=== PATIENT | female | born 1935 | race Caucasian/White ===

== ENCOUNTER → 2023-11-19 10:58 | Outpatient (REF) | payer OTHER, MEDICARE, SELFPAY ==
[2023-11-19 12:24] LABS: % Basophils 0.9 % (0-2); % Eosinophils 5.9 % (0-6); % Immature Granulocytes 2.7 % (0-0.5); % Lymphocytes 15.1 % (20.5-51.1); % Monocytes 7.4 % (1.7-9.3); Absolute Basophils 0.1 10^3/uL (0-0.2); Absolute Eosinophils 0.6 10^3/uL (0-0.7); Absolute Immature Granulocytes 0.3 10^3/uL (0-0.05); Absolute Lymphocytes 1.5 10^3/uL (1.2-3.4); Absolute Monocytes 0.8 10^3/uL (0.1-0.6); Absolute Neutrophils 6.9 10^3/uL (1.4-6.5); Hematocrit 30.4 % (37.0-47.0); Hemoglobin 9.9 g/dL (12.0-16.0); Mean Corp Hgb Conc. 32.6 g/dL (33.0-37.0); Mean Corpuscular Hgb 30.7 pg (27.0-31.0); Mean Corpuscular Volume 94.1 fL (81.0-99.0); Mean Platelet Volume 10.8 fL (7.4-10.4); Nucleated Red Blood Cells % 0 %; Platelet Count 257 10^3/uL (130-400); Red Blood Cell Count 3.23 10^6/uL (4.20-5.40); White Blood Cell Count 10.1 10^3/uL (4.8-10.8)
[2023-11-19 13:02] LABS: ALT (SGPT) 39 U/L (0-35); AST (SGOT) 32 U/L (14-36); Albumin 3.2 g/dl (3.5-5.0); Alkaline Phosphatase 69 U/L (38-126); Blood Urea Nitrogen 13 mg/dl (7-17); Calcium 8.5 mg/dl (8.4-10.2); Carbon Dioxide 23 mmol/L (22-30); Chloride 105 mmol/L (98-107); Glucose 110 mg/dl (70-99); Potassium 3.6 mmol/L (3.5-5.1); Sodium 133 mmol/L (135-145); Total Bilirubin 0.4 mg/dl (0.2-1.3); eGFR > 60.00
[2023-11-19 13:12] LABS: NT-proBNP 4690 pg/ml
== END ==
LOC: OLABN 10:58
PROVIDERS: ATTENDING PHYSICIAN Student in an Organized Health Care Education/Training Program
DX: R06.2 Wheezing (principal)
CPT/HCPCS: 36415; 80053; 83880; 85025

== ENCOUNTER 2023-11-21 20:25 | Inpatient (IN) | payer MEDICARE, SELFPAY ==
[2023-11-21] VITALS (16 sets, daily range): BP systolic 98–162; BP diastolic 50–111; BMI 27.6
[2023-11-21 18:15] LABS: % Eosinophils 4.1 % (0-6); % Immature Granulocytes 2.7 % (0-0.5); % Monocytes 7.6 % (1.7-9.3); % Neutrophils 52.6 % (42.2-75.2); Absolute Basophils 0.2 10^3/uL (0-0.2); Absolute Eosinophils 0.8 10^3/uL (0-0.7); Absolute Immature Granulocytes 0.5 10^3/uL (0-0.05); Absolute Lymphocytes 6.4 10^3/uL (1.2-3.4); Absolute Monocytes 1.5 10^3/uL (0.1-0.6); Absolute Neutrophils 10.4 10^3/uL (1.4-6.5); Hematocrit 38.4 % (37.0-47.0); Hemoglobin 12.5 g/dL (12.0-16.0); Mean Corp Hgb Conc. 32.6 g/dL (33.0-37.0); Mean Corpuscular Hgb 31.3 pg (27.0-31.0); Mean Corpuscular Volume 96.2 fL (81.0-99.0); Mean Platelet Volume 10.2 fL (7.4-10.4); Nucleated Red Blood Cells % 0 %; Platelet Count 355 10^3/uL (130-400); Red Blood Cell Count 3.99 10^6/uL (4.20-5.40); Red Cell Dist. Width 14.3 % (11.5-14.5); White Blood Cell Count 19.8 10^3/uL (4.8-10.8)
[2023-11-21 18:18] LABS: B.E. -4.7 mmol/L; O2 Saturation % 90.9 % (94-98); PCO2 60 mmHg (32-35); PO2 66 mmHg (83-108); pH 7.21 (7.35-7.45)
[2023-11-21] MEDS: LASIX 40 MG IV (18:21)
[2023-11-21 18:28] LABS: ALT (SGPT) < 10 U/L (0-35); AST (SGOT) 31 U/L (14-36); Albumin 3.7 g/dl (3.5-5.0); Alkaline Phosphatase 77 U/L (38-126); Blood Urea Nitrogen 17 mg/dl (7-17); Calcium 8.9 mg/dl (8.4-10.2); Carbon Dioxide 24 mmol/L (22-30); Chloride 99 mmol/L (98-107); Glucose 261 mg/dl (70-99); Potassium 5.2 mmol/L (3.5-5.1); Sodium 133 mmol/L (135-145); Total Bilirubin 0.6 mg/dl (0.2-1.3); eGFR > 60.00
[2023-11-21 18:40] LABS: NT-proBNP 4840 pg/ml; Troponin I 0.013 ng/ml
[2023-11-21] MEDS: MAXIPIME 1000 MG IV (19:04)
[2023-11-21] MEDS: VANCOCIN 200 IV (19:19)
--- NOTE | 2023-11-21 19:32 | HPS.HSE ---
Addendum entered and electronically signed by Walter Kim MD 11/21/23 20:47:
NEG Covid Ag
ICU and CBC card consulted
Communicated via TT with ICU AP
Addendum entered and electronically signed by Walter Kim MD 11/21/23 20:23:
Bronchospastic with biphasic wheeze on exam DDX: Acute asthmatic bronchitis vs acute Pul edema
No prior HX COPD, Non smoker
- Nebs qid and PRN
- PO Prednisone - short course nad rapid taper as tolerates
Original Note:
Family Physician
-
Family Physician:
Chief Complaint
-
acute Resp distress
History of Present Illness
HPI
88F Res pf [facility] HX COPD, HTN, HLD, Hypothyroid, on DAPL pw severe RESP distress.
Currently ongoing Rx for endocarditis on IV Cefazolin:
Per ER staff due too patient is very lethargic but fiorella wakefull when I see her
she was foundhypoxic and decresed mentation
Sent to ER via EMS
@ ER
In acute Resp distress
POx as low as 79%
Tachypneic
ABG c/w Primary acute resp acidosis with Secondary metabolic acidosis and NG MA.
BiPAP
Per Family
HX chr gait dysfunction, intact normal cognitive function
Weak and Fell during PT at NH and [facility]
Denied CP
Medical History
Past Medical History
Past Medical History: Reports Other
Additional Past Medical History:
COPD, HTN, HLD, Hypothyroid, on DAPL
Past Surgical History: Reports Other
Social History
Tobacco: Non-smoker
Alcohol: None
Drug: None
Living: Half-Way
Family History
Family History: Not pertinent
Allergies / Home Medications
Allergies reflects when Allergies were last updated in [facility].
Home Medications with original date entered in [facility]
Allergy/Medication List:
Allergies
Allergy/AdvReac Type Severity Reaction Status Date / Time
sulfamethoxazole Allergy Unknown Verified 11/21/23 19:09
trimethoprim Allergy Unknown Verified 11/21/23 19:09
Home Medications
acetaminophen 325 mg tablet 650 mg PO Q4H PRN mild pain/fever>100.4 11/21/23
amiodarone 200 mg tablet 200 mg PO DAILY 11/21/23
aspirin 81 mg tablet,delayed release 81 mg PO DAILY 11/21/23
atorvastatin 40 mg tablet 40 mg PO QPM 11/21/23
bisacodyl 10 mg rectal suppository (Dulcolax (bisacodyl)) 10 mg AR DAILYPRN PRN if lactulose is ineffective 11/21/23
cefazolin 2 gram solution for injection 2 g IV TID 11/21/23
clopidogrel 75 mg tablet 75 mg PO DAILY 11/21/23
dapagliflozin propanediol 10 mg tablet 10 mg PO DAILY 11/21/23
ipratropium 0.5 mg-albuterol 3 mg (2.5 mg base)/3 mL nebulization soln 3 ml inhalation R Q6 11/21/23
labetalol 100 mg tablet 100 mg PO BID 11/21/23
lactulose 10 gram/15 mL oral solution 20 ml PO HSPRN PRN constipation 11/21/23
levothyroxine 88 mcg tablet 88 mcg PO DAILY 11/21/23
melatonin 3 mg tablet 3 mg PO QPM 11/21/23
polyethylene glycol 3350 17 gram oral powder packet (Miralax) 17 g PO DAILY 11/21/23
sodium phosphates 19 gram-7 gram/118 mL enema (Fleet Enema) 118 ml AR DAILY PRN if dulcolax ineffective 11/21/23
spironolactone 25 mg tablet 25 mg PO DAILY 11/21/23
Review of Systems
-
Constitutional: Reports No Symptoms
EENT: Reports No Symptoms
Respiratory: Reports See HPI and Trouble Breathing
Cardiac: Reports No Symptoms
Abdomen/GI: Reports No Symptoms
: Reports No Symptoms
Musculoskeletal: Reports No Symptoms
Skin: Reports No Symptoms
Neurological: Reports No Symptoms
Endocrine: Reports No Symptoms
Hematologic/Lymphatic: Reports No Symptoms
Psych: Reports No Symptoms
Physical Exam
Vital Signs
Vital Signs
Pulse Resp BP Pulse Ox
84 28 115/76 96
11/21/23 19:15 11/21/23 19:15 11/21/23 19:15 11/21/23 19:15
Physical Exam
General: Other (awake and follow comands )
HEENT: Anicteric and Moist mucous membranes
Respiratory: Wheezes (bilaterally )
Cardiac: S1/S2 and Regular Rhythm
Breast: Deferred by me
GI: Soft, Non Tender and Non Distended
Rectal: Deferred by Provider
Genito-urinary: Deferred by me
Musculoskeletal: No Edema
Skin: Warm and Dry
Neuro: Awake, Alert and Oriented (to hospital but not the name )
Psych: Calm
Laboratory Results
-
11/21/23 18:09
11/21/23 18:09
Laboratory Results
pH 7.21 (7.35-7.45) L 11/21/23 18:13
pCO2 60 mmHg (32-35) H 11/21/23 18:13
pO2 66 mmHg (83-108) L 11/21/23 18:13
HCO3 24.0 mmol/L (21-28) 11/21/23 18:13
Lactic Acid 2.0 mmol/L (0.7-2.0) 11/21/23 18:16
Total Bilirubin 0.6 mg/dl (0.2-1.3) 11/21/23 18:09
AST 31 U/L (14-36) 11/21/23 18:09
ALT < 10 U/L (0-35) 11/21/23 18:09
Alkaline Phosphatase 77 U/L (38-126) 11/21/23 18:09
Troponin I 0.013 ng/ml 11/21/23 18:09
Data Reviewed
-
Diagnostic Radiology: Report Reviewed by me
Medical Tests (Nuc Med, Echo, EKG etc): Report Reviewed by me
Lab Data: Labs Reviewed by me
Impression/Plan
-
Reviewed VS: HR 80s to 90s BP 120s/70s to 210/112 RR hi 20s POx 79 % on RA 97 on BiPAP
Data
WCC 19.8
AB.21/60/66 /HCO3 24
NG MA
Primary acute resp acidosis
Secondary metabolic acidosis
Na 133
K 5.2
nl Cr
eGFR > 60
TPNI 0.013
proBNP 4840 - 4960 on 11/19/23
Pending LA
11/21/23 CXR
Probable severe CHF with a moderate left pleural effusion. Pneumonia cannot be excluded. Clinical and laboratory correlation recommended. All new
EKG report
NORMAL SINUS RHYTHM WITH SINUS ARRHYTHMIA
POSSIBLE LEFT ATRIAL ENLARGEMENT
LEFT BUNDLE BRANCH BLOCK
ABNORMAL ECG
WHEN COMPARED WITH ECG OF 27-MAY-2001 15:29,
LEFT BUNDLE BRANCH BLOCK IS NOW PRESENT
Last hospitalist admission:
Last ECHO was 09/12/11
Nl LVEF
Sclerotic aortic valve with mildly increased aortic gradients suggesting a mild degree of aortic stenosis.
No significant mitral or tricuspid regurgitation.
No prior study available for comparison.
ASSESSMENT & PLAN
Acute CHF - unknown type
Moderate left pleural effusion
Asso. acute Resp distress with hypoxic RF need BiPAP support
Asso. Acid base disorder: NG MA , Primary acute resp acidosis, Secondary metabolic acidosis
Asso. Hypoactive TME
Preserved renal function
- Cont. IV lasix 40 BID
- check PCT
- cont. BiPAP support
- ECHO
- Aspiration precaution
- IOs, daily Wt
- daily BMP
- CBC card consult
HTN emergency - improved after Laix
- PRN NTG gtt if SBP > 185. DBP > 110
- Diuresis and observe BP
- cont HEARING OFFICER Labetalol 100mg PO BID
- Held Spironolactone due to K 5.2
Hyperkalemia due to acidosis
- Diuresis and observe K
- Held Spironolactone
Currently ongoing Rx for endocarditis since last week of Sep on high dose IV Cefazolin for toal 6 weeks via Rt UEx PICC
HX pending TAVR
P card at [place]
No prio HX COPD
- Nebs
- Steroids
HLD on Atorvastatin
Hypothyroid on LT4
Chr DAPL for stented CAD
DVT Px: LMWH
Code: DNI. No CPR. No Defib. Yes to chemical dose per patient and daughter at bed side
ICU
[2023-11-21 20:20] LABS: COVID-19 Antigen Negative (Negative)
[2023-11-21 20:50] LABS: Lactic Acid 1.2 mmol/L (0.7-2.0)
[2023-11-21 21:06] LABS: Procalcitonin 0.09 ng/ml (0.0-0.25)
[2023-11-21] MEDS: DUONEB 3 ML INH (21:22)
--- NOTE | 2023-11-21 21:30 | PTCARENOTE ---
Received pt. from ED nurse. Pt. is awake and alert. No complaints of pain or discomfort. Heart rhythm is sinus. Pt. briefly started on a nitroglycerin gtt in ED. Blood pressure has not been an issue, no Nitro gtt upon arrival to ICU. Pt. currently
on NIV with mask. 02 saturation 95-100%. Lungs sound diminished. IV lasix given in ED. Purewick catheter in place. Discussed plan of care. Family currently at bedside. Vital signs stable at this time.
[2023-11-21] MEDS: TRANDATE PO (22:42)
[2023-11-21 22:46] LABS: INR 1.57; PT 18.6 Sec (11.4-14.6)
[2023-11-21 22:47] LABS: APTT 27.9 Sec (23.4-35.0)
[2023-11-21 22:58] LABS: Troponin I < 0.012 ng/ml
[2023-11-21] MEDS: ANCEF 10 IV (23:59)
[2023-11-22] VITALS (27 sets, daily range): BP systolic 96–166; BP diastolic 46–105; PULSE 2–85; BMI 25.8
--- NOTE | 2023-11-22 | PTCARENOTE ---
Pt. assessment unchanged. Remains on NIV. Family at bedside. Vital signs stable at this time.
[2023-11-22] MEDS: DUONEB 3 ML INH ×4 (01:39→19:18)
[2023-11-22 04:45] LABS: Venous Blood Gas B.E. -0.3 mmol/L (-4 to +4); Venous Blood Gas HCO3 25.4 mmol/L (22-27); Venous Blood Gas O2 Sat % 91.1 %; Venous Blood Gas pCO2 45 mmHg (35-48); Venous Blood Gas pH 7.36 (7.32-7.43); Venous Blood Gas pO2 59 mmHg (30-50)
[2023-11-22 04:57] LABS: Hematocrit 30.9 % (37.0-47.0); Hemoglobin 10.4 g/dL (12.0-16.0); Mean Corp Hgb Conc. 33.7 g/dL (33.0-37.0); Mean Corpuscular Volume 92.2 fL (81.0-99.0); Mean Platelet Volume 10.1 fL (7.4-10.4); Platelet Count 271 10^3/uL (130-400); Red Blood Cell Count 3.35 10^6/uL (4.20-5.40); Red Cell Dist. Width 14.2 % (11.5-14.5); White Blood Cell Count 16.4 10^3/uL (4.8-10.8)
--- NOTE | 2023-11-22 05:00 | PTCARENOTE ---
Pt. asking to NIV mask off. Explained to patient why she needs NIV at this time. Respiratory Therapist also talked with patient about need for NIV. AM labs drawn. Vital signs stable at this time.
[2023-11-22 05:21] LABS: Blood Urea Nitrogen 17 mg/dl (7-17); Carbon Dioxide 26 mmol/L (22-30); Chloride 100 mmol/L (98-107); Estimated Creatinine Clearance 48 ml/min; Glucose 96 mg/dl (70-99); HDL Cholesterol 62 mg/dl; LDL Cholesterol, Calculated 45 mg/dl; Magnesium 1.8 mg/dl (1.6-2.3); Phosphorus 4.1 mg/dl (2.5-4.5); Potassium 4.2 mmol/L (3.5-5.1); Sodium 135 mmol/L (135-145); Total Cholesterol 127 mg/dl (50-199); Triglyceride 104 mg/dl (10-149); Very Low Density Lipoprotein 20 mg/dl (0-30); eGFR > 60.00
[2023-11-22 05:32] LABS: Troponin I 0.012 ng/ml
[2023-11-22] MEDS: SYNTHROID PO (06:31)
--- NOTE | 2023-11-22 07:15 | CON.INTV ---
Consultation
Consultation Request
Date/Time Consultation Requested: 11/22/23
Date/Time Consultation Performed: 11/22/23
Reason for Consultation: critical care
Medical History
-
History of Present Illness:
History obtained from the chart, patient, son at bedside. Patient is an 88-year-old female with history of recurrent heart failure pulm edema, severe aortic insufficiency over the past month, intermittently evaluated at [place]/hospital.
Recent was in rehabilitation due to weakness and possible upper respiratory symptoms. According to the son, she acutely became short of breath, called him over the phone. She was congested and short of breath. She had been on oxygen therapy at
the rehabilitation facility, but this was not sufficient. For this reason she was brought to [facility], pulse 84, blood pressure 117/100, respiratory rate 33, 79% on room air. There are no ED provider records for me to review. Patient
apparently was lethargic, diffusely wheezing. ABG revealed respiratory acidemia. Patient was placed on noninvasive ventilation. Chest x-ray suggested heart failure with questionable left lower lobe process. Recent old films not available for
comparison. Patient admitted to ICU for further management.
Presently, she is awake and alert, conversing through NIV mask, writing on the paper. She denies any chest pain, nausea, abdominal pain.
.
PMH: Hypertension, hyperlipidemia, hypothyroidism. History of aortic/mitral insufficiency on antibiotics followed at [facility] cardiology (details unclear). History of gait dysfunction.
Past Medical History
Past Medical History: None (See above)
Past Surgical History: None (See above)
Social History
Tobacco: Non-smoker
Alcohol: None
Drug: None
Personal:
Living: With Family (Lives with son)
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
Family History
Family History: Other (4 children, 1 who from colon cancer. Sister with breast cancer/ovarian cancer/melanoma, 1 at age 38)
Allergies / Home Medications
Allergies
Allergy/AdvReac Type Severity Reaction Status Date / Time
sulfamethoxazole Allergy Unknown Verified 11/21/23 19:09
trimethoprim Allergy Unknown Verified 11/21/23 19:09
Home Medications
�Medication �Instructions �Recorded �Confirmed �Last Taken �Type
acetaminophen 325 mg tablet 650 mg PO Q4H PRN mild 11/21/23 11/21/23 11/19/23 00:12 History
pain/fever>100.4
amiodarone 200 mg tablet 200 mg PO DAILY 11/21/23 11/21/23 11/21/23 08:30 History
aspirin 81 mg tablet,delayed 81 mg PO DAILY 11/21/23 11/21/23 11/21/23 08:30 History
release
atorvastatin 40 mg tablet 40 mg PO QPM 11/21/23 11/21/23 11/20/23 18:30 History
bisacodyl 10 mg rectal suppository 10 mg WI DAILYPRN PRN if lactulose 11/21/23 11/21/23 Unknown History
(Dulcolax (bisacodyl)) is ineffective
cefazolin 2 gram solution for 2 g IV TID 11/21/23 11/21/23 11/21/23 08:00 History
injection
clopidogrel 75 mg tablet 75 mg PO DAILY 11/21/23 11/21/23 11/21/23 08:30 History
dapagliflozin propanediol 10 mg 10 mg PO DAILY 11/21/23 11/21/23 11/21/23 08:30 History
tablet
ipratropium 0.5 mg-albuterol 3 mg 3 ml inhalation R Q6 11/21/23 11/21/23 11/21/23 12:00 History
(2.5 mg base)/3 mL nebulization
soln
labetalol 100 mg tablet 100 mg PO BID 11/21/23 11/21/23 11/21/23 08:30 History
lactulose 10 gram/15 mL oral 20 ml PO HSPRN PRN constipation 11/21/23 11/21/23 11/19/23 21:30 History
solution
levothyroxine 88 mcg tablet 88 mcg PO DAILY 11/21/23 11/21/23 11/21/23 06:30 History
melatonin 3 mg tablet 3 mg PO QPM 11/21/23 11/21/23 11/20/23 18:30 History
polyethylene glycol 3350 17 gram 17 g PO DAILY 11/21/23 11/21/23 11/21/23 08:30 History
oral powder packet (Miralax)
sodium phosphates 19 gram-7 118 ml WI DAILY PRN if dulcolax 11/21/23 11/21/23 Unknown History
gram/118 mL enema (Fleet Enema) ineffective
spironolactone 25 mg tablet 25 mg PO DAILY 11/21/23 11/21/23 11/21/23 08:30 History
Review of Systems
Vitals / Labs / Diagnostic Testing
Vital Signs
Temp Pulse Resp BP Pulse Ox
97.8 F 53 14 166/68 100
11/22/23 04:00 11/22/23 06:30 11/22/23 06:30 11/22/23 06:00 11/22/23 06:30
Lab Data
11/22/23 04:31
11/22/23 04:31
Laboratory Results
11/21/23 11/21/23
18:13 22:30
PT 18.6 H
INR 1.57
APTT 27.9
pH 7.21 L
pCO2 60 H
pO2 66 L
HCO3 24.0
O2 Delivery Level
Diagnostic Testing:
Physical Exam
-
HEENT: Normocephalic and Anicteric
Cardiovascular: S1/S2, Regular Rhythm, Murmur (2/6 SM), Peripheral Edema (n) and Calf Tenderness (n)
Respiratory: Wheeze (n), Rales (n), Rhonchi (n), Non-Labored Respirations, Other (NIV in place) and Other (Decreased at left base)
GI: Soft, Non Distended and Non Tender
Neurology: Awake, Alert and No Motor Deficits (Moves all extremities, writing on paper)
Skin: Good Color
General: Comfortable
Assessment
-
88-year-old female with history of severe aortic insufficiency, treated for endocarditis, recurrent pulm edema hospitalized at [place], recently at rehabilitation facility with oxygen therapy with acute worsening shortness of breath. Found to be
having hypercapnic respiratory failure, acidemia, heart failure, 79% on room air. Admitted to ICU for further management
Acute hypoxic respiratory failure, 79% on room air
Acute hypercapnic respiratory failure, requiring NIV
Suspected acute heart failure
Flash pulm edema
Severe aortic/mitral insufficiency per history?
On chronic antibiotics for possible endocarditis
Follows cardiology at [facility] ([facility])
History of aortic stenosis per echocardiogram 2011
Conditions present prior to admission
Hypertension/hyperlipidemia
Hypothyroidism
Chronic constipation
History of TUNDE/oophorectomy
History of gait dysfunction
Questionable history of asthma, patient denies
Family history of colon cancer, breast cancer, ovarian cancer, melanoma
Plan/recommendations
At this time, patient appears to be improved overall but remains critically ill
Chest x-ray worrisome for pulm edema with left pleural parenchymal process. Old films not available for review
Patient wheezing has since resolved.
Received nebs and steroids post admission. -900 cc, saturation adequate
Currently on NIV 18/6/PEEP of 10, 70%
troponin negative, COVID-negative, procalcitonin negative
VBG shows improvement in ventilation
EKG with left bundle branch block
Moving forward
Suspect flash pulmonary edema possibly due to history of valvular disease
Son states patient has had recurrent flash pulm edema, hospitalized and evaluated at [facility]. Patient is also on antibiotics for endocarditis
Unclear if this is aortic or mitral valve
Unclear of triggers are hypertension, fluid shift/fluid overload, dietary discretion. Patient also describes constipation and frequent bearing down. Troponins are negative
Will take a break from NIV as appears to be improved
Discontinue steroids, does not appear to be pulmonary
Remains on cefazolin, this will continue
Lasix therapy, blood pressure control
Patient also on amiodarone
Echocardiogram has been ordered. Cardiology consulted
Will try to obtain records from [facility]
Follow-up x-ray in the next 24 to 48 hours
Reviewed with critical care nursing, respiratory care
Reviewed with patient, son at bedside
TCCT 35 min
--- NOTE | 2023-11-22 08:04 | W.PN.HOSP.TC ---
Today's Communication/Plan
-
stable for IVU
Assessment / Plan
Assessment / Plan
HPI: 88-year-old female with a past medical history of aortic stenosis being worked up for TAVR who was admitted for shortness of breath, found to have flash pulmonary edema.
#Acute/pulmonary edema
#Acute on chronic heart failure with a preserved ejection fraction
Appreciate tightening machine operator and cardiology input, much improved on IV Lasix
Status post and NIV, steroids discontinued by tightening machine operator
Continue Lasix 40 mg IV twice daily, trend creatinine, trend daily weights
Continue amiodarone and Farxiga
Obtain records from [facility] for transfer to IVU
#Severe aortic stenosis
#Left bundle branch block
Needs TAVR, cardiology following
#Endocarditis
Since September 2023, has right upper extremity PICC for IV Ancef for total of 6 weeks
11/21 JOSHUA neg for vegetation
Continue IV Ancef
#Coronary artery disease
Continue aspirin, Plavix, statin
#Hypertensive emergency
Blood pressure much improved on IV Lasix
Continue labetalol and spironolactone
#Chronic normocytic anemia
Trend hemoglobin
#Leukocytosis
Likely from steroids
#Hyperlipidemia
Continue statin
#Hypothyroidism
Continue Synthroid
DVT prophylaxis�SQ lovenox
Code Status - DNI. No CPR. No Defib. Yes to chemical dose per patient and daughter at bed side
Physical Exam
General: Frail elderly, no acute distress
HEENT: Normocephalic, Atraumatic, EOMI, MMM
+Hoarse voice
Respiratory: Diminished breath sounds in the bases with faint crackles
Cardiac: Normal S1/S2, Regular Rate and Rhythm
GI: Soft, Nontender, Nondistended, Normal Bowel Sounds
Extremities: No Clubbing, Cyanosis
Neuro: Nonfocal/Grossly Intact
Psych: Calm, Cooperative
Anticipated Discharge: > 48 hours
Subjective/Interval History
-
Date of Service: November 22, 2023
Patient reports shortness of breath much improved. She feels better overall. No chest pain. No fever, no vomiting.
Objective Data
-
Labs:
Laboratory Results
11/21/23 11/22/23
22:30 04:31
WBC 16.4 H
Hgb 10.4 L
Hct 30.9 L
Plt Count 271 D
PT 18.6 H
INR 1.57
APTT 27.9
Sodium 135
Potassium 4.2
Chloride 100
Carbon Dioxide 26
BUN 17
Creatinine 0.7
Glucose 96
Calcium 9.0
Vital Signs:
Vital Signs
Temp Pulse Resp BP Pulse Ox
97.8 F 61 18 166/68 95
11/22/23 04:00 11/22/23 07:57 11/22/23 07:57 11/22/23 06:00 11/22/23 07:57
I&O
11/21/23 11/22/23 11/23/23
06:59 06:59 06:59
Output Total 900 / 900
Balance -900 / -900
--- NOTE | 2023-11-22 08:22 | W.PN.CD ---
Today's Communication / Plan
-
.
Impression / Plan
-
Impression: 88F with recurrent flash pulmonary edema
History: obtained from son. She follows with Dr. Shannon at [facility]. She has had (or AI) but been ambivalent about TAVR. Unfortunately, she has had recurrent flash pulmonary edema (x2-3 over last several months) and been treated at [place]. She had
LHC and PCI. In addition, a vegetation was discovered on aortic valve and she is receiving antibiotics. It sounds like the ultimate plan was to participate in rehab, recover stregnth, and undergo the TAVR that was previously deferred. Her son wishes
to transfer care to - 'Look at everything with new eyes.'
Plan:
Flash pulmonary edema - seems like due to severe symptomatic but that is not clear just yet
- NIV
- diurese
- lower BP
- Echo this AM (I spoke with tech)
Severe - above.
Amiodarone use - records
LBBB - 'new' from 2011
Endocarditis
- Echo
- ABx
CAD
- DAPT
- statin
- EKG with LBBB, but troponin very normal, especially considering presentation
Hypertension
- labetalol/spironolactone
- may need more but let's see where it goes this AM
Dyslipidemia - at goal
Dispo
- d/w son and patient at bedside -> it will take some time to get up to speed with her chronic issues but we are working on it. Echo today will be helpful
- critically ill 34 minutes
Physical Exam
Vital Signs/Labs
Vital Signs
Temp Pulse Resp BP Pulse Ox
36.5 C 61 18 166/68 95
11/22/23 08:11 11/22/23 07:57 11/22/23 07:57 11/22/23 06:00 11/22/23 07:57
11/21/23 11/22/23 11/23/23
06:59 06:59 06:59
Actual Weight 136 lb 3.931 oz
11/22/23 04:31
11/22/23 04:31
PT 18.6 Sec (11.4-14.6) H 11/21/23 22:30
INR 1.57 11/21/23 22:30
APTT 27.9 Sec (23.4-35.0) 11/21/23 22:30
Magnesium 1.8 mg/dl (1.6-2.3) 11/22/23 04:31
Triglycerides 104 mg/dl (10-149) 11/22/23 04:31
LDL Cholesterol, Calc 45 mg/dl 11/22/23 04:31
VLDL Cholesterol, Calc 20 mg/dl (0-30) 11/22/23 04:31
HDL Cholesterol 62 mg/dl 11/22/23 04:31
11/21/23
18:09
[id number] Pept 4840
LAB Results
11/21/23 11/21/23 11/22/23
18:09 22:30 04:31
Troponin I 0.013 < 0.012 0.012
Data Reviewed
-
Date of Service: November 22, 2023
[2023-11-22] MEDS: LASIX 40 MG IV ×2 (08:30→16:00)
[2023-11-22] MEDS: ANCEF 10 IV ×2 (08:30→16:00)
[2023-11-22] MEDS: FLUSH (NSS) 2 FLUSH IV ×2 (08:31→16:01)
--- NOTE | 2023-11-22 09:00 | PTCARENOTE ---
Rec'd pt at 0800 resting in bed on NIV ventilation. Rec'd pt awake and alert. Writing notes and gesturing/nodding to communicate. Denies pain or shortness of breath. BERMAN. Skin is pale pink wm and dry.Pt with bruise on L post upper arm. Respirs are
unlabored on the NIV ventilatioin. RR 15-16. Settings 40% fio2, 15/5. BS are decreased with crackles 1/3 up bilaterally. Lasix 40 mg IV given as ordered. Monitor SBrady to SR. BB config. + murmur. + pulses. Tr LE edema. VS as documented. Abd is soft
with + BS. Purewick in place- pt voiding yellow urine. Capped int inact L arm. R arm Single lumen picc site wnl. Plan is to transition off of NIV. Pts son at the bedside and both pt and son aware of plan of care. Call espinoza in reach,.,
--- NOTE | 2023-11-22 09:15 | PTCARENOTE ---
Pts sats have been 100%. Currently resp therapy in and pt transitioned off of High flow and placed on 4l nc with sats of 98%. Pt states she is comfortable.
[2023-11-22 09:21] LABS: Troponin I 0.014 ng/ml
--- NOTE | 2023-11-22 09:34 | RESPNOTE ---
[id number] stand by, placed on O2 4L
--- NOTE | 2023-11-22 10:00 | PTCARENOTE ---
Pt able to take few sips of water with no difficulty noted with swallowing. Speech is clear and pt is awake.AM po meds given whole in applesauce at pt request without difficulty. Tolerating 4l nc with sats of 98%. ECHO completed around 1015. AM care
given turned and repositioned. Partial CHG bath given. Pt diuresed after earlier Lasix 500 mls of yellow urine via purewick along with a saturated amt of urine around the purewick. Prisca care given and new purewick placed. States currently that she
is comfortable. Call espinoza in reach.
[2023-11-22] MEDS: FARXIGA 10 MG PO (10:46)
[2023-11-22] MEDS: PACERONE 200 MG PO (10:47)
[2023-11-22] MEDS: ASPIR LOW (ENTERIC COATED) 81 MG PO (10:47)
[2023-11-22] MEDS: TRANDATE 100 MG PO ×2 (10:47→19:41)
[2023-11-22] MEDS: PLAVIX 75 MG PO (10:48)
[2023-11-22 11:08] LABS: Glucose - Point of Care 85 mg/dl (70-99)
--- NOTE | 2023-11-22 11:51 | W.PN.UPDATE ---
Update Note
Progress Note Update
Patient has been weaned down to 2 L, denies chest pain, denies shortness of breath, nausea. Son at bedside.
Diuresis significantly since this morning, feels much improved
Echocardiogram completed, results pending
Will downgrade to IMU
Discontinue NIV. Instead we will use BiPAP 12/5 tonight
Reviewed with patient, son at bedside, critical care nursing, primary service, cardiology
Will continue to follow
--- NOTE | 2023-11-22 13:30 | PTCARENOTE ---
Pt with overall good appetite for lunch. No difficulty noted with swallowing. Tolerating 2l nc. with sats of 98%. VS as documented. Voiding via purewick. Repositioned. Son remains at the bedside. No complaints offered
--- NOTE | 2023-11-22 16:30 | PTCARENOTE ---
Lasix given as ordered. Voiding via purewick. No complaints. Sats on 2l are 98%. Repositioned. SKin care given. Remains alert and oriented. No c/o shortness of breath at rest with HOB elevated but does state that she feels more winded when she lays
more flat. Call espinoza in reach.
--- NOTE | 2023-11-22 17:23 | W.PN.HOSP.TC ---
Today's Communication/Plan
-
see bold
Assessment / Plan
Assessment / Plan
HPI: 88-year-old female with a past medical history of aortic stenosis being worked up for TAVR who was admitted for shortness of breath, found to have flash pulmonary edema.
#Acute respiratory failure
#Acute/pulmonary edema
#Acute on chronic heart failure with a preserved ejection fraction
Appreciate jury consultant and cardiology input, much improved on IV Lasix
Status post and NIV, steroids discontinued by jury consultant
Currently on 2 L, down from 4 L, wean as tolerated
Continue Lasix 40 mg IV twice daily, trend creatinine, trend daily weights
Continue amiodarone and Farxiga
Obtain records from [place], [facility] for transfer to IVU
#Severe aortic stenosis
#Left bundle branch block
Needs TAVR, cardiology following
#Endocarditis
Since September 2023, has right upper extremity PICC for IV Ancef for total of 6 weeks
11/21 JOSHUA neg for vegetation
Continue IV Ancef
#Coronary artery disease
Continue aspirin, Plavix, statin
#Hypertensive emergency
Blood pressure much improved on IV Lasix
Continue labetalol, spironolactone resumed 11/22
#Chronic normocytic anemia
Trend hemoglobin
#Leukocytosis
Likely from steroids
#Hyperlipidemia
Continue statin
#Hypothyroidism
Continue Synthroid
DVT prophylaxis�SQ lovenox
Code Status - DNI. No CPR. No Defib. Yes to chemical dose per patient and daughter at bed side
Physical Exam
General: Frail elderly, no acute distress
HEENT: Normocephalic, Atraumatic, EOMI, MMM
+Hoarse voice
Respiratory: Diminished breath sounds in the bases with faint crackles
Cardiac: Normal S1/S2, Regular Rate and Rhythm
GI: Soft, Nontender, Nondistended, Normal Bowel Sounds
Extremities: No Clubbing, Cyanosis
Neuro: Nonfocal/Grossly Intact
Psych: Calm, Cooperative
Anticipated Discharge: > 48 hours
Subjective/Interval History
-
Date of Service: November 22, 2023
Breathing continues to improve. No CP. No fever, no vomiting.
Objective Data
-
Vital Signs:
Vital Signs
Temp Pulse Resp BP Pulse Ox
98.0 F 64 16 121/49 99
11/22/23 15:27 11/22/23 16:00 11/22/23 15:42 11/22/23 16:00 11/22/23 15:42
I&O
11/21/23 11/22/23 11/23/23
06:59 06:59 06:59
Intake Total 450 / 450
Output Total 900 / 900 500 / 500
Balance -900 / -900 -50 / -50
[2023-11-22] MEDS: LIPITOR 40 MG PO (17:50)
[2023-11-22] MEDS: LOVENOX 40 MG SC (17:50)
--- NOTE | 2023-11-22 18:31 | PTCARENOTE ---
Pt diuresisng from earlier Lasix. Remains alert and oriented. Currently assisted oob with the assist of 2 to the chair for dinner. Gait is weak but is able to bear some wt. States she is comfortable sitting up. Sats on 2l are 98%. Will monitor. Call
espinoza in reach
--- NOTE | 2023-11-22 19:30 | PTCARENOTE ---
Received patient at 1900. Pt. alert and oriented. Currently OOB in chair. Pt. speaking with visitors. No complaints of pain or discomfort. Afebrile. Heart rhythm sinus. Blood pressure normotensive. Currently on 2L nasal cannula. Plan for Bipap HS.
Lungs sound diminished. Pt. ordered low cholesterol, low sodium diet. Good appetite. Purewick catheter in place, draining without issue. Skin as documented. Discussed plan of care. Vital signs stable at this time.
[2023-11-22] MEDS: MYLICON 80 MG PO (22:01)
[2023-11-22] MEDS: MELATONIN 3 MG PO (22:02)
[2023-11-23] VITALS (22 sets, daily range): BP systolic 98–140; BP diastolic 45–88; PULSE 2–80; O2SAT 100; BMI 25.4
[2023-11-23] MEDS: ANCEF 10 IV ×4 (00:17→22:54)
[2023-11-23 03:18] LABS: Hematocrit 26.7 % (37.0-47.0); Hemoglobin 9.2 g/dL (12.0-16.0); Mean Corp Hgb Conc. 34.5 g/dL (33.0-37.0); Mean Corpuscular Hgb 31.3 pg (27.0-31.0); Mean Corpuscular Volume 90.8 fL (81.0-99.0); Mean Platelet Volume 10.2 fL (7.4-10.4); Platelet Count 243 10^3/uL (130-400); Red Blood Cell Count 2.94 10^6/uL (4.20-5.40); Red Cell Dist. Width 14.3 % (11.5-14.5); White Blood Cell Count 9.4 10^3/uL (4.8-10.8)
[2023-11-23 03:43] LABS: Blood Urea Nitrogen 21 mg/dl (7-17); Calcium 8.9 mg/dl (8.4-10.2); Carbon Dioxide 30 mmol/L (22-30); Chloride 97 mmol/L (98-107); Estimated Creatinine Clearance 37 ml/min; Glucose 110 mg/dl (70-99); Magnesium 1.8 mg/dl (1.6-2.3); Potassium 3.5 mmol/L (3.5-5.1); Sodium 134 mmol/L (135-145); eGFR > 60.00
--- NOTE | 2023-11-23 04:00 | PTCARENOTE ---
Pt. assessment remains unchanged. Currently on Bipap HS. AM labs drawn. Vital signs stable at this time.
[2023-11-23] MEDS: SYNTHROID 88 MCG PO (05:51)
[2023-11-23] MEDS: KCL 270 MEQ IV (06:28)
[2023-11-23] MEDS: DUONEB 3 ML INH ×3 (07:07→19:34)
--- NOTE | 2023-11-23 07:08 | W.PN.INTV ---
Today's Communication / Plan
Recommendations
Continue diuresis
Severe aortic stenosis noted
Remains on antibiotics for previously diagnosed vegetation/endocarditis
Check nocturnal oximetry
Assessment
-
88-year-old female with history of severe aortic insufficiency, treated for endocarditis, recurrent pulm edema hospitalized at [place], recently at rehabilitation facility with oxygen therapy with acute worsening shortness of breath. Found to be
having hypercapnic respiratory failure, acidemia, heart failure, 79% on room air. Admitted to ICU for further management
Acute hypoxic respiratory failure, 79% on room air
Acute hypercapnic respiratory failure, requiring NIV
Suspected acute heart failure
Flash pulm edema
Severe aortic/mitral insufficiency per history?
On chronic antibiotics for possible endocarditis
Follows cardiology at [place] ([facility])
History of aortic stenosis per echocardiogram 2011
Conditions present prior to admission
Hypertension/hyperlipidemia
Hypothyroidism
Chronic constipation
History of TUNDE/oophorectomy
History of gait dysfunction
Questionable history of asthma, patient denies
Family history of colon cancer, breast cancer, ovarian cancer, melanoma
Plan/recommendations
At this time, patient appears to be improved
Weaned down to a few liters of nasal cannula during the day, tolerated BiPAP overnight
Chest x-ray today with improved heart failure. Persistent left pleuroparenchymal process. No prior films available for comparison
Wheezing has resolved negative fluid status since admission noted
Moving forward
Suspect flash pulmonary edema possibly due to history of valvular disease
Much improved but clinically, subjectively and radiographically
Persistent left pleuroparenchymal process noted, chronicity unclear. Follow clinically
Son states patient has had recurrent flash pulm edema, hospitalized and evaluated at [place]. Patient is also on antibiotics for endocarditis
Echocardiogram 11/21 with normal biventricular function, aortic valve 0.5 cm�, PA pressure 40
Unclear of triggers are hypertension, fluid shift/fluid overload, dietary discretion. Patient also describes constipation and frequent bearing down. Troponins are negative
Will discontinue BiPAP
Check nocturnal oximetry tonight
Discontinue steroids, does not appear to be pulmonary
Remains on cefazolin, this will continue
Lasix therapy, blood pressure control
Patient also on amiodarone
Cardiology following
[facility] records have been requested
Eventual follow-up imaging for left pleuroparenchymal process based on clinical course
Reviewed with critical care nursing, respiratory care
Reviewed with patient
We will follow
Subjective Dataa
Subjective Data
Date of Service:
Date of Service: November 23, 2023
Subjective:
Patient tolerated BiPAP overnight. Presently without chest pain, shortness of breath. Denies nausea or abdominal pain. She had some mild abdominal pain prior to placement of BiPAP last night but this resolved
Objective Data
Data Reviewed
Vital Signs / I&O / Oxygen:
Vital Signs
Temp Pulse Resp BP Pulse Ox
98.3 F 60 13 108/71 100
11/23/23 04:00 11/23/23 06:00 11/23/23 06:00 11/23/23 06:00 11/23/23 05:00
Intake and Output
11/22/23 11/23/23 11/24/23
06:59 06:59 06:59
Intake Total 700 / 700
Output Total 900 / 900 1800 / 1800
Balance -900 / -900 -1100 / -1100
SaO2 [NIV (Non Invasive 100
Ventilation)]
SaO2 100
Nasal Cannula flow liters per 2
minute
Physical Exam
General: Comfortable
HEENT: Normocephalic and Anicteric
Cardiovascular: S1-S2, Regular Rhythm, Murmur (n), Rub (n), Peripheral Edema (n) and Calf Tenderness (n)
Respiratory: Wheeze (n), Crackles (n), Rhonchi (n) and Non-Labored Respirations
GI: Soft, Non Distended and Non Tender
Neurology: Awake, Alert and No Motor Deficits
Skin: Jaundice (n), Rash (n) and Bruising (Few scattered bruises)
Labs/Micro/Reports
Lab Data
11/23/23 03:11
11/23/23 03:11
Microbiology
11/21/23 18:52 Blood/Venous Blood Culture - Preliminary
No Growth in 24 hours- Final report to follow
11/21/23 18:48 Blood/Venous Blood Culture - Preliminary
No Growth in 24 hours- Final report to follow
--- NOTE | 2023-11-23 07:33 | W.PN.CD ---
Today's Communication / Plan
-
- - continue diuretic today
- records from [place] and Dr. Shannon in AM
- continue discussion re: goals of care
Impression / Plan
-
Impression: 88F with recurrent flash pulmonary edema
History: obtained from son. She follows with Dr. Shannon at [facility]. She has had (or AI) but been ambivalent about TAVR. Unfortunately, she has had recurrent flash pulmonary edema (x2-3 over last several months) and been treated at [place]. She had
LHC and PCI. In addition, a vegetation was discovered on aortic valve and she is receiving antibiotics. It sounds like the ultimate plan was to participate in rehab, recover stregnth, and undergo the TAVR that was previously deferred. Her son wishes
to transfer care to - 'Look at everything with new eyes.'
Plan:
Flash pulmonary edema/HFpEF - likely due to severe and hypertension
- continue diuretic today
- treatment will be AVR if possible
Severe
- We will get records from Dr. Shannon
- The transition from Dr. Shannon to us
Amiodarone use - unclear why from the records we have
LBBB - 'new' from 2011
Endocarditis
- Echo shows severe calcification of valves, including aortic valve, but no obvious vegetation
- ABx
CAD
- DAPT
- statin
Hypertension
- labetalol/spironolactone
- may need more but let's see where it goes this AM
Dyslipidemia - at goal
Dispo - d/w Mrs. Chappell today. It seems she was ambivalent about TAVR. Then she developed recurrent flash pulmonary edema and deconditioning, and then endocarditis that delayed TAVR further. Now she is switching her care, which will delay
things again. Finally, she remains ambivalent about TAVR. We discussed other options including hospice. We will get her records and continue these discussions
Subjective: Dyspnea has improved to baseline. There is no CP or palps
TTE Apr 13: Normal EF, mild LVH, severe 68/39/0.5 cm2. DI 0.2 and SVI low at 31 ml/min
Physical Exam
Vital Signs/Labs
Vital Signs
Temp Pulse Resp BP Pulse Ox
36.8 C 60 16 108/71 99
11/23/23 04:00 11/23/23 07:09 11/23/23 07:09 11/23/23 06:00 11/23/23 07:09
11/22/23 11/23/23 11/24/23
06:59 06:59 06:59
Actual Weight 136 lb 3.931 oz 134 lb 4.184 oz
11/23/23 03:11
11/23/23 03:11
PT 18.6 Sec (11.4-14.6) H 11/21/23 22:30
INR 1.57 11/21/23 22:30
APTT 27.9 Sec (23.4-35.0) 11/21/23 22:30
Magnesium 1.8 mg/dl (1.6-2.3) 11/23/23 03:11
Triglycerides 104 mg/dl (10-149) 11/22/23 04:31
LDL Cholesterol, Calc 45 mg/dl 11/22/23 04:31
VLDL Cholesterol, Calc 20 mg/dl (0-30) 11/22/23 04:31
HDL Cholesterol 62 mg/dl 11/22/23 04:31
11/21/23
18:09
[id number] Pept 4840
LAB Results
11/21/23 11/21/23 11/22/23
18:09 22:30 04:31
Troponin I 0.013 < 0.012 0.012
11/22/23
08:36
Troponin I 0.014
Physical Exam
Constitutional: No acute distress
EENT: Anicteric and Moist mucous membranes
Cardiovascular: Rhythm & rate is regular, Pedal edema is absent, Diastolic murmur absent and Systolic murmur present
Respiratory: Respiratory effort normal
GI: Soft, Distention absent, Non tender and Normal bowel sounds
Neuro/Psych: Alert and Oriented
Data Reviewed
-
Date of Service: November 23, 2023
[2023-11-23] MEDS: TRANDATE 100 MG PO ×2 (08:41→21:34)
[2023-11-23] MEDS: FARXIGA 10 MG PO (08:41)
[2023-11-23] MEDS: PACERONE 200 MG PO (08:42)
[2023-11-23] MEDS: LASIX 40 MG IV ×2 (08:42→16:03)
[2023-11-23] MEDS: ASPIR LOW (ENTERIC COATED) 81 MG PO (08:42)
[2023-11-23] MEDS: PLAVIX 75 MG PO (08:42)
[2023-11-23] MEDS: ALDACTONE 25 MG PO (08:50)
[2023-11-23] MEDS: MIRALAX 17 GRAMS PO (08:50)
[2023-11-23] MEDS: FLUSH (NSS) 1 FLUSH IV (08:51)
--- NOTE | 2023-11-23 09:00 | PTCARENOTE ---
Rec'd pt at 0800 resting in bed sleeping. Does awaken easily to verbal stimuli and is alert and oriented. Overall states she slept well. Denies pain. Skin is pale wm and dry. Does have small bruise on back on L upper arm. Respirs - taken off of
Bipap this am and currently on 2l nc with sats of 98%. BS are decreased with scattered crackles 1/4 up bilat. No cough noted. Getting about 500 mls on IS. Monitor [id number]-SR with BB config. + pulses. No edema noted this am. Denies chest pain. VS as
documented. Abd is round and soft with + BS. Denies nausea. Purewick in place and pt is voiding yellow urine. Lasix 40 mg IV given as ordered. KCL rider infusing via R arm PICC site. Capped int intact L AC. Repositioned as she is soon ready to eat
breakfast. Plan of care reviewed with pt and son who stayed last night and is at the bedside. Call alexis in reach. Dr. Heller in to see pt- awaiting records from admissions to [place].
--- NOTE | 2023-11-23 10:30 | PTCARENOTE ---
Overall good appetite for breakfast. Complete CHG bath given. Pt will do her mouth care oob. Voiding via purewick but incont of a small amt of urine around the purewick. and diuresing post lasix. Prisca care given and new purewick placed. PT and OT
worked with pt and pt then assisted oob to the recliner chair. Call espinoza in reach. KCL rider finishing up via PICC.
--- NOTE | 2023-11-23 11:30 | PTCARENOTE ---
Tolerating sitting oob. No complaints. Diuresing from Lasix. Tolerating 2L nc. Callbell in reach.
--- NOTE | 2023-11-23 14:17 | PTCARENOTE ---
Report called to IVU will transfer pt via wheelchair. No changes in assessment
--- NOTE | 2023-11-23 15:39 | W.PN.HOSP.TC ---
Today's Communication/Plan
-
see bold
Assessment / Plan
Assessment / Plan
HPI: 88-year-old female with a past medical history of aortic stenosis being worked up for TAVR who was admitted for shortness of breath, found to have flash pulmonary edema.
#Acute respiratory failure
#Acute/pulmonary edema
#Acute on chronic heart failure with a preserved ejection fraction
Appreciate corporate auditor and cardiology input, much improved on IV Lasix
Status post and NIV, steroids discontinued by corporate auditor
Currently on 2 L, down from 4 L, wean as tolerated
Continue Lasix 40 mg IV twice daily, trend creatinine, trend daily weights
Continue amiodarone and Farxiga
Obtain records from [place], [facility] for transfer to IVU
#Severe aortic stenosis
#Left bundle branch block
Needs TAVR, cardiology following
#Endocarditis
Since September 2023, has right upper extremity PICC for IV Ancef for total of 6 weeks
11/21 JOSHUA neg for vegetation
Continue IV Ancef
#Coronary artery disease
Continue aspirin, Plavix, statin
#Hypertensive emergency
Blood pressure much improved on IV Lasix
Continue labetalol, spironolactone resumed 11/22
#Chronic normocytic anemia
Trend hemoglobin
#Leukocytosis
Likely from steroids
#Hyperlipidemia
Continue statin
#Hypothyroidism
Continue Synthroid
DVT prophylaxis�SQ lovenox
Code Status - DNI. No CPR. No Defib. Yes to chemical dose per patient and daughter at bed side
Physical Exam
General: Frail elderly, no acute distress
HEENT: Normocephalic, Atraumatic, EOMI, MMM
+Hoarse voice
Respiratory: Diminished breath sounds in the bases with faint crackles
Cardiac: Normal S1/S2, Regular Rate and Rhythm
GI: Soft, Nontender, Nondistended, Normal Bowel Sounds
Extremities: No Clubbing, Cyanosis
Neuro: Nonfocal/Grossly Intact
Psych: Calm, Cooperative
Anticipated Discharge: > 48 hours
Subjective/Interval History
-
Date of Service: November 23, 2023
Patient's breathing continues to improve. No chest pain, no nausea, no vomiting. No fever.
Objective Data
-
Labs:
Laboratory Results
11/23/23
03:11
Sodium 134 L
Potassium 3.5
Chloride 97 L
Carbon Dioxide 30
BUN 21 H
Creatinine 0.8
Glucose 110 H
Calcium 8.9
Vital Signs:
Vital Signs
Temp Pulse Resp BP Pulse Ox
97.8 F 58 20 134/56 100
11/23/23 15:33 11/23/23 15:00 11/23/23 15:33 11/23/23 14:37 11/23/23 15:33
I&O
11/22/23 11/23/23 11/24/23
06:59 06:59 06:59
Intake Total 700 / 700 400 / 400
Output Total 900 / 900 1800 / 1800 800 / 800
Balance -900 / -900 -1100 / -1100 -400 / -400
[2023-11-23] MEDS: LIPITOR 40 MG PO (17:49)
[2023-11-23] MEDS: LOVENOX 40 MG SC (17:49)
[2023-11-23] MEDS: MYLICON 80 MG PO (21:34)
[2023-11-23] MEDS: MELATONIN 3 MG PO (22:54)
--- NOTE | 2023-11-23 23:48 | PTCARENOTE ---
Pt rec'd at change of shift oob in recliner chair. assisted back to bed with 2 person assist. O2 at 2 lit n/c in place. Pt tolerating well. O2 sat 100% with diminished breath sounds 1/[address] up. Sinus on telemetry, + murmur. RADHA picc line flushed. Pt
with c/o 'gasey' abd. Mylicon given. Pt's son at bedside at present.
[2023-11-24] VITALS (8 sets, daily range): BP systolic 101–144; BP diastolic 57–77; BMI 23.9
[2023-11-24] MEDS: TYLENOL 650 MG PO (01:06)
--- NOTE | 2023-11-24 01:19 | PTCARENOTE ---
Pt unable to sleep c/o slight H/A medicated with Tylenol.
[2023-11-24] MEDS: SYNTHROID 88 MCG PO (06:16)
[2023-11-24] MEDS: DUONEB 3 ML INH ×3 (07:18→19:59)
--- NOTE | 2023-11-24 08:36 | W.PN.CD ---
Today's Communication / Plan
-
continue IV lasix
awaiting records
Impression / Plan
-
Impression: 88F with recurrent flash pulmonary edema
History: obtained from son and [place] records. She follows with Dr. Shannon at [facility]. She has severe , but been ambivalent about TAVR. Unfortunately, she has had recurrent flash pulmonary edema (4 admissions since Sep) and been treated at [place]. She
had LHC and PCI in 09/2023. In addition, a vegetation was discovered on aortic valve and she is receiving IV antibiotics for endocarditis: she was d/c on 11/14/23 on IV Abx. It sounds like the ultimate plan was to participate in rehab, recover
strength, and undergo the TAVR that was previously deferred. Her son wishes to transfer care to .
Plan:
Flash pulmonary edema/HFpEF - likely acute on chronic HFPEF due to severe
- ultimate treatment will be AVR if possible, with 4 HF admissions in 2 months
- awaiting records from [place], as she is also being treated for AV endocarditis
-continue home jardiance and aldactone
-of note, [place] med list does not include lasix
- continue lasix 40mg IV bid, with close monitoring of labs and tele
Severe
-echo 11/22/23: EF 60%, severe (68/39, 0.5), mild TR, PASP 35-40
- awaiting records from Dr. Shannon
- plan as above
Paroxsymal A fib
-rhythm is SR with LBBB
-on amiodarone, labetalol
-not on OAC
LBBB - since 2011
Endocarditis: aortic valve
- Echo shows severe calcification of valves, including aortic valve, but no obvious vegetation
- discharged 11/13 on IV Abx, awaiting full records
-Bcx here 11/20: no growth to date
CAD: s/p stent 09/2023
-awaiting records
- DAPT
- statin
Hypertension
-cont home labetalol/spironolactone
-monitor with diuresis
Dyslipidemia
-LDL at goal at 45
-cont atovastatin 40mg daily
Dispo - SR d/w Mrs. Chappell. It seems she was ambivalent about TAVR. Then she developed recurrent flash pulmonary edema and deconditioning, and then endocarditis that delayed TAVR further. Now she is switching her care, which will delay things
again. Finally, she remains ambivalent about TAVR. We discussed other options including hospice. We will get her records and continue these discussions
Subjective:
TTE Nov 21: Normal EF, mild LVH, severe 68/39/0.5 cm2. DI 0.2 and SVI low at 31 ml/min
Physical Exam
Vital Signs/Labs
Vital Signs
Temp Pulse Resp BP Pulse Ox
97.5 F 58 22 143/57 100
11/24/23 07:55 11/24/23 08:00 11/24/23 07:55 11/24/23 07:51 11/24/23 07:55
11/23/23 11/24/23 11/25/23
06:59 06:59 06:59
Actual Weight 60.9 kg
PT 18.6 Sec (11.4-14.6) H 11/21/23 22:30
INR 1.57 11/21/23 22:30
APTT 27.9 Sec (23.4-35.0) 11/21/23 22:30
Magnesium 1.8 mg/dl (1.6-2.3) 11/23/23 03:11
Triglycerides 104 mg/dl (10-149) 11/22/23 04:31
LDL Cholesterol, Calc 45 mg/dl 11/22/23 04:31
VLDL Cholesterol, Calc 20 mg/dl (0-30) 11/22/23 04:31
HDL Cholesterol 62 mg/dl 11/22/23 04:31
11/21/23
18:09
Xss-[id number] Pept 4840
LAB Results
11/21/23 11/21/23 11/22/23
18:09 22:30 04:31
Troponin I 0.013 < 0.012 0.012
11/22/23
08:36
Troponin I 0.014
Physical Exam
Constitutional: No acute distress and Comfortable
EENT: Moist mucous membranes
Cardiovascular: Rhythm & rate is regular, Pedal edema is absent, JVD present and Systolic murmur present
Respiratory: Respiratory effort normal, Lungs clear to auscul. and Wheeze Absent
GI: Soft, Distention absent and Flat
Neuro/Psych: AO x 3
Data Reviewed
-
Date of Service: November 24, 2023
EKG: Tracing Personally Visualized and interpreted (Tele: NSR 60s)
Echo: Report Reviewed by me (per note)
Old Records: Requested
--- NOTE | 2023-11-24 09:05 | W.PN.HOSP.TC ---
Today's Communication/Plan
-
see A/P
Assessment / Plan
Assessment / Plan
HPI: 88-year-old female with past medical history of aortic stenosis being worked up for TAVR who was admitted for shortness of breath, found to have flash pulmonary edema.
A/P:
# Acute hypoxic respiratory failure
# Acute flash pulmonary edema
# Acute on chronic heart failure with preserved ejection fraction
# Paroxysmal A fib
Appreciate professor criminal justice and cardiology input, much improved on IV Lasix
Status post NIV, Currently on 2 L, down from 4 L, wean as tolerated. She has home O2 but has not started using it.
Continue Lasix 40 mg IV twice daily, trend creatinine, trend daily weights
Continue Labetalol, spironolactone, amiodarone and Farxiga
steroids discontinued by professor criminal justice
Obtain records from [place]
# Severe aortic stenosis
# Left bundle branch block
Needs TAVR, cardiology following
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
11/21 JOSHUA neg for vegetation
Continue IV Ancef
# Coronary artery disease
Continue aspirin, Plavix, statin
# Hypertensive emergency
Blood pressure much improved on IV Lasix
Continue labetalol, spironolactone resumed 11/22
# Chronic normocytic anemia
Trend hemoglobin
# Leukocytosis
Likely from steroids
# Hyperlipidemia
Continue statin
# Hypothyroidism
Continue Synthroid
DVT prophylaxis�SQ lovenox
Code Status - DNI. No CPR. No Defib. Yes to chemical dose per patient and daughter at bed side
total time spent 51 min
Anticipated Discharge: > 48 hours
Subjective/Interval History
-
Date of Service: November 24, 2023
Objective Data
-
Labs:
Laboratory Results
11/24/23
06:19
WBC Pending
Hgb Pending
Hct Pending
Plt Count Pending
Sodium Pending
Potassium Pending
Chloride Pending
Carbon Dioxide Pending
BUN Pending
Creatinine Pending
Glucose Pending
Calcium Pending
Vital Signs:
Vital Signs
Temp Pulse Resp BP Pulse Ox
36.4 C 58 22 143/57 100
11/24/23 07:55 11/24/23 08:00 11/24/23 07:55 11/24/23 07:51 11/24/23 07:55
I&O
11/23/23 11/24/23 11/25/23
06:59 06:59 06:59
Intake Total 700 / 700 640 / 640
Output Total 1800 / 1800 1200 / 1200
Balance -1100 / -1100 -560 / -560
Review of Systems
-
All other systems: Reviewed and negative
Physical Exam
-
General: Well Developed, Well Nourished, Comfortable, Respiratory Distress (chronic), Conversant and Appears Chronically Ill
HEENT: Normocephalic, Atraumatic, Nose Appears Normal, Ears Appear Normal and Oxygen (1-2L NC)
Respiratory: Clear to Auscultation and Non Labored Respirations; Negative Accessory Resp Muscle Use
Cardiac: Regular Rhythm, S1/S2 and Murmur
GI: Soft, Nontender and Nondistended
Skin: Warm and Dry
Neuro: Awake and Alert
Psych: Calm and Intact Judgement/Insight (somewhat)
Data Reviewed
-
Labs: Labs Reviewed by me
[2023-11-24] MEDS: ALDACTONE 25 MG PO (09:38)
[2023-11-24] MEDS: ANCEF 10 IV ×3 (09:39→23:10)
[2023-11-24] MEDS: LASIX 40 MG IV ×2 (09:39→17:09)
[2023-11-24] MEDS: FARXIGA 10 MG PO (09:39)
[2023-11-24] MEDS: ASPIR LOW (ENTERIC COATED) 81 MG PO (09:39)
[2023-11-24] MEDS: PLAVIX 75 MG PO (09:40)
[2023-11-24] MEDS: FLUSH (NSS) 3 FLUSH IV ×2 (09:40→17:10)
[2023-11-24] MEDS: TRANDATE 100 MG PO ×2 (09:40→20:24)
[2023-11-24] MEDS: MIRALAX 17 GRAMS PO (09:40)
[2023-11-24] MEDS: PACERONE 200 MG PO (09:40)
--- NOTE | 2023-11-24 10:01 | W.PN.PUL3 ---
Today's Communication / Plan
-
IV lasix
Replete electrolytes while being aggressively diuresed
Maintain MAP>65
Goal SpO2 >90-94%
Incentive spirometer - she is currently pulling ~500cc
PT/OT
TAVR workup/discussion as per cardiology
NOX study tonight
Assessment
-
88-year-old female with history of severe aortic insufficiency, treated for endocarditis, recurrent pulm edema hospitalized at [place], recently at rehabilitation facility with oxygen therapy with acute worsening shortness of breath. Found to be
having hypercapnic respiratory failure, acidemia, heart failure, 79% on room air. Admitted to ICU for further management
Impression:
Acute hypoxic respiratory failure - improved
Acute hypercapnic respiratory failure, requiring NIV
Acute decompensated heart failure in setting of severe
Flash cardiogenic pulmonary edema
On chronic antibiotics for possible endocarditis
Follows cardiology at [place] ([facility])
Conditions present prior to admission
Hypertension/hyperlipidemia
Hypothyroidism
Chronic constipation
History of TUDNE/oophorectomy
History of gait dysfunction
Questionable history of asthma, patient denies
Family history of colon cancer, breast cancer, ovarian cancer, melanoma
Plan/recommendations
At this time, patient continued to improve on IV diuresis
Trend UOP and replete K>4, Mg>2
On room air --> maintain SpO2 >90-94%
Chest x-ray on 11/22 with improved heart failure. Persistent left pleuroparenchymal process. No prior films available for comparison
Wheezing has resolved
Check NOX study tonight
Moving forward
Suspect flash pulmonary edema possibly due to her severe --> defer TAVR to cardiology depending on patient's wishes as she had been ambivalent in terms of treatment in the past, as per cardiology documentation
Persistent left pleuroparenchymal process noted, chronicity unclear. Follow clinically
Son states patient has had recurrent flash pulm edema, hospitalized and evaluated at [place]. Patient is also on antibiotics for endocarditis
Echocardiogram 11/21 with normal biventricular function, aortic valve 0.5 cm�, PA pressure 40
Unclear of triggers are hypertension, fluid shift/fluid overload, dietary discretion. Patient also describes constipation and frequent bearing down. Troponins are negative
BiPAP discontinued as per Dr. Burrows
Check nocturnal oximetry tonight
Steroids already discontinued as per Dr. Burrows
Remains on cefazolin, this will continue
Lasix therapy, blood pressure control
Patient also on amiodarone
Cardiology following
[place] records have been requested
Eventual follow-up imaging for left pleuroparenchymal process based on clinical course
Reviewed with patient
We will follow
Subjective Data
-
Date of Service:
Date of Service: November 24, 2023
Chief Complaint: Pulmonary Follow Up
Subjective:
Patient seen and evaluated today. She is sitting in chair in no acute distress, on room air, heart rate 66. She says she is breathing comfortably at rest. Has to be assisted to the bathroom. Remains on IV Lasix BID. She is net (-) 560cc last 24
hrs. No acute events reported from overnight.
Review of Systems
General: Other (Negative unless mentioned above)
Objective Data
Data Reviewed
Vital Signs / I&O / Oxygen:
Vital Signs
Temp Pulse Resp BP Pulse Ox
97.3 F 57 24 101/62 100
11/24/23 12:00 11/24/23 12:00 11/24/23 12:00 11/24/23 11:42 11/24/23 12:56
Intake and Output
11/23/23 11/24/23 11/25/23
06:59 06:59 06:59
Intake Total 700 / 700 640 / 640
Output Total 1800 / 1800 1200 / 1200
Balance -1100 / -1100 -560 / -560
SaO2 [NIV (Non Invasive 100
Ventilation)]
SaO2 100
Nasal Cannula flow liters per 2
minute
Physical Exam
General: Comfortable
HEENT: Normocephalic and Anicteric
Cardiovascular: S1-S2, Murmur (STACEY heard best at [facility]) and Peripheral Edema (negative b/l LE)
Respiratory: Wheeze (n), Crackles (bibasilar), Rhonchi (n) and Non-Labored Respirations
GI: Soft, Distended, Non Tender and Normal Bowel Sounds
Neurology: Awake, Alert and Tremors (n)
Skin: Warm and Dry
Labs/Micro/Reports
Lab Data
11/24/23 06:19
11/24/23 06:19
Microbiology
11/21/23 18:52 Blood/Venous Blood Culture - Preliminary
No Growth in 48 hours- Final report to follow
11/21/23 18:48 Blood/Venous Blood Culture - Preliminary
No Growth in 48 hours- Final report to follow
--- NOTE | 2023-11-24 14:32 | CM ---
Reviewed chart. Met with Mrs. Chappell. She states prior to admission she was at [facility]. She states her daughter would like her to return to [facility]. She states prior to admission she was ambulating
with a rolling walker and needs assistance with adls. Telephone call to [facility] Admission to check on bed hold. Left message. Medical work-up in progress. The discharge plan is to return to [facility] when medically
stable.
--- NOTE | 2023-11-24 14:59 | W.PN.UPDATE ---
Update Note
Progress Note Update
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
fibrillation (not on oral anticoagulation).
She has had multiple admissions at [facility]. This is a brief review of those hospitalizations.
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
-The plan was for 6 weeks of intravenous antibiotics to
10/28- admitted for dyspnea and discharge within 24 hours without any changes in medical therapy
admitted for weakness, blood cultures negative
11/09/202311/14/2023 admitted with nausea, vomiting, abdominal pain and was diagnosed with right lower lobe pneumonia
-Bumex 1 mg tablet was discontinued at discharge
[2023-11-24] MEDS: MAALOX 30 ML PO (15:43)
--- NOTE | 2023-11-24 16:13 | PTCARENOTE ---
Patient's appetite is poor, states she feels like she fills up fast. Had a bowel movement yesterday and incontinent of small amount of soft stool this morning during AM care. Patient states she feels bloated, daughter at the bedside and requesting
a GI consult. Notified Dr. Vega and patient given maalox as ordered. Will give prn lactulose tonight as ordered prn at HS.
[2023-11-24] MEDS: LIPITOR 40 MG PO (17:09)
[2023-11-24] MEDS: LOVENOX 40 MG SC (17:10)
--- NOTE | 2023-11-24 18:07 | PTCARENOTE ---
Patient did get relief from maalox, trying to eat dinner. Daughter asking if the patient's diet could be changed to a regular diet since her appetite has been poor. As per Dr. Silvia garcia to change to a regular diet with ensure daily.
[2023-11-24] MEDS: MYLICON 80 MG PO (20:24)
[2023-11-24] MEDS: MELATONIN 3 MG PO (23:10)
[2023-11-25] VITALS (8 sets, daily range): BP systolic 98–125; BP diastolic 50–64; PULSE 58; O2SAT 97; BMI 24.0
[2023-11-25 04:43] LABS: Hematocrit 30.4 % (37.0-47.0); Hemoglobin 10.2 g/dL (12.0-16.0); Mean Corp Hgb Conc. 33.6 g/dL (33.0-37.0); Mean Corpuscular Hgb 31.1 pg (27.0-31.0); Mean Corpuscular Volume 92.7 fL (81.0-99.0); Mean Platelet Volume 10.4 fL (7.4-10.4); Platelet Count 261 10^3/uL (130-400); Red Blood Cell Count 3.28 10^6/uL (4.20-5.40); Red Cell Dist. Width 14.2 % (11.5-14.5); White Blood Cell Count 8.7 10^3/uL (4.8-10.8)
--- NOTE | 2023-11-25 04:46 | PTCARENOTE ---
Pt slept well overnight. Pt complaining of feeling bloated in the evening, PRN Medication administered as ordered. Vital signs stable. Son sleeping at bedside t/o the night. Nocturnal POX in place as ordered. Will continue to monitor.
[2023-11-25 05:04] LABS: Blood Urea Nitrogen 21 mg/dl (7-17); Calcium 9.1 mg/dl (8.4-10.2); Carbon Dioxide 31 mmol/L (22-30); Chloride 96 mmol/L (98-107); Estimated Creatinine Clearance 37 ml/min; Glucose 95 mg/dl (70-99); Magnesium 1.8 mg/dl (1.6-2.3); Sodium 133 mmol/L (135-145); eGFR > 60.00
[2023-11-25] MEDS: SYNTHROID 88 MCG PO (06:24)
[2023-11-25] MEDS: DUONEB 3 ML INH ×3 (07:14→19:42)
--- NOTE | 2023-11-25 08:07 | W.PN.HOSP.TC ---
Today's Communication/Plan
-
see A/P
Assessment / Plan
Assessment / Plan
HPI: 88-year-old female with past medical history of aortic stenosis being worked up for TAVR who was admitted for shortness of breath, found to have flash pulmonary edema.
A/P:
# Acute hypoxic respiratory failure
# Acute flash pulmonary edema
# Acute on chronic heart failure with preserved ejection fraction
# Paroxysmal A fib
Appreciate cocoa milling machine operator and cardiology input, much improved on IV Lasix
Status post NIV, then on 4L to 2L NC, now weaned back to RA. Pt has home O2 but has not started using it.
Continue Lasix 40 mg IV twice daily, trend creatinine, trend daily weights
Continue Labetalol, spironolactone, amiodarone and Farxiga
steroids discontinued by cocoa milling machine operator
# Severe aortic stenosis
# Left bundle branch block
Needs TAVR, cardiology following
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
11/21 JOSHUA neg for vegetation
Continue IV Ancef
# Coronary artery disease
Continue aspirin, Plavix, statin
# Hypertensive emergency
Blood pressure much improved on IV Lasix
Continue labetalol, spironolactone
# Chronic normocytic anemia
Trend hemoglobin
# Leukocytosis
Likely from steroids
resolved
# Hyperlipidemia
Continue statin
# Hypothyroidism
Continue Synthroid
# Abdominal bloating/ possible constipation
on exam, abd soft, non-tender with good bowel sound
family concerned, can check AXR
Maalox PRN for bloating
DVT prophylaxis� SQ Lovenox
Code Status - DNI. No CPR. No Defib. Yes to chemical dose per patient and daughter at bed side
DW son at bedside
Also called daughter to update
total time spent 51 min
Anticipated Discharge: 24 - 48 hours
Subjective/Interval History
-
Date of Service: November 25, 2023
Objective Data
-
Labs:
Laboratory Results
11/25/23
04:08
WBC 8.7
Hgb 10.2 L
Hct 30.4 L
Plt Count 261
Sodium 133 L
Potassium 4.0
Chloride 96 L
Carbon Dioxide 31 H
BUN 21 H
Creatinine 0.8
Glucose 95
Calcium 9.1
Vital Signs:
Vital Signs
Temp Pulse Resp BP Pulse Ox
36.3 C 62 16 123/64 96
11/25/23 07:45 11/25/23 07:45 11/25/23 07:45 11/25/23 04:20 11/25/23 07:45
I&O
11/24/23 11/25/23 11/26/23
06:59 06:59 06:59
Intake Total 640 / 640 240 / 240
Output Total 1200 / 1200 1050 / 1050
Balance -560 / -560 -810 / -810
Review of Systems
-
All other systems: Reviewed and negative
Abdomen/GI: Reports Bloated
Physical Exam
-
General: Well Developed, Well Nourished, Comfortable, Conversant and Appears Chronically Ill
HEENT: Normocephalic, Atraumatic, Nose Appears Normal and Ears Appear Normal; Negative Oxygen
Respiratory: Clear to Auscultation and Non Labored Respirations; Negative Accessory Resp Muscle Use
Cardiac: Regular Rhythm, S1/S2 and Murmur
GI: Soft, Nontender, Nondistended and Normal Bowel Sounds
Skin: Warm and Dry
Neuro: Awake and Alert
Psych: Calm and Intact Judgement/Insight (somewhat)
Data Reviewed
-
Labs: Labs Reviewed by me
--- NOTE | 2023-11-25 08:59 | W.PN.CD ---
Today's Communication / Plan
-
Consider ID consult
Lasix IV bid today
Bumex 1 mg tomorrow ( home dose) previously stopped
Impression / Plan
-
Impression: 88F with recurrent flash pulmonary edema
History: obtained from son and [place] records. She follows with Dr. Shannon at [facility]. She has severe , but been ambivalent about TAVR. Unfortunately, she has had recurrent flash pulmonary edema (4 admissions since Sep) and been treated at [facility]. She
had LHC and PCI in 09/2023. In addition, a vegetation was discovered on aortic valve and she is receiving IV antibiotics for endocarditis: she was d/c on 11/14/23 on IV Abx. It sounds like the ultimate plan was to participate in rehab, recover
strength, and undergo the TAVR that was previously deferred. Her son wishes to transfer care to .
Plan:
Flash pulmonary edema/HFpEF - likely acute on chronic HFPEF due to severe
- ultimate treatment will be AVR if possible, with 4 HF admissions in 2 months
- awaiting records from [facility], as she is also being treated for AV endocarditis
-continue home jardiance and aldactone
- Bumex 1 mg was stopped previously will restart, see update note from yesterday
- last day for lasix IV
Severe
-echo 11/22/23: EF 60%, severe (68/39, 0.5), mild TR, PASP 35-40
- will need abx planning and cleared prior to TAVR, consider ID consult for clarity
- plan as above
- TAVR team aware
Paroxsymal A fib
-rhythm is SR with LBBB
-on amiodarone, labetalol
-not on OAC? unclear why likely will need at some point
LBBB - since 2011
Endocarditis: aortic valve
- Echo shows severe calcification of valves, including aortic valve, but no obvious vegetation
- discharged 11/13 on IV Abx, awaiting full records
-Bcx here 11/20: no growth to date
- consider ID consult for duration of Abx and will need clearance for TAVR
CAD: s/p stent 09/2023
-awaiting records
- DAPT
- statin
Hypertension
-cont home labetalol/spironolactone
-monitor with diuresis
Dyslipidemia
-LDL at goal at 45
-cont atovastatin 40mg daily
Dispo - patient would like to be evaluated for TAVR and transition cardiology care to --> [facility]
Subjective:
TTE Nov 21: Normal EF, mild LVH, severe 68/39/0.5 cm2. DI 0.2 and SVI low at 31 ml/min
Physical Exam
Vital Signs/Labs
Vital Signs
Temp Pulse Resp BP Pulse Ox
97.4 F 62 16 123/64 96
11/25/23 07:45 11/25/23 07:45 11/25/23 07:45 11/25/23 04:20 11/25/23 07:45
11/24/23 11/25/23 11/26/23
06:59 06:59 06:59
Actual Weight 127 lb
11/25/23 04:08
11/25/23 04:08
PT 18.6 Sec (11.4-14.6) H 11/21/23 22:30
INR 1.57 11/21/23 22:30
APTT 27.9 Sec (23.4-35.0) 11/21/23 22:30
Magnesium 1.8 mg/dl (1.6-2.3) 11/25/23 04:08
Triglycerides 104 mg/dl (10-149) 11/22/23 04:31
LDL Cholesterol, Calc 45 mg/dl 11/22/23 04:31
VLDL Cholesterol, Calc 20 mg/dl (0-30) 11/22/23 04:31
HDL Cholesterol 62 mg/dl 11/22/23 04:31
11/21/23
18:09
[id number] Pept 4840
LAB Results
11/22/23
08:36
Troponin I 0.014
Physical Exam
Constitutional: No acute distress
EENT: Anicteric
Cardiovascular: Rhythm & rate is regular, Pedal edema is absent and Systolic murmur present
Respiratory: Respiratory effort normal and Lungs clear to auscul.
GI: Soft
Neuro/Psych: Alert and Oriented
Data Reviewed
-
Date of Service: November 25, 2023
EKG: Tracing Personally Visualized and interpreted (sr [id number] )
Echo: Report Reviewed by me (severe )
Labs: Labs Reviewed by me
--- NOTE | 2023-11-25 09:37 | W.PN.PUL3 ---
Today's Communication / Plan
-
Diuresis; trend BNP as she appears to be close to euvolemia based on today's exam (she is also net negative 3.6L since admission as of today)
Replete electrolytes while being aggressively diuresed with K>4, Mg>2
Maintain MAP>65
Goal SpO2 >90-94%
Incentive spirometer - she is currently pulling ~500cc
PT/OT --> recomending skilled rehab
TAVR workup/discussion as per cardiology/CT surgery and depending on patient's wishes
Start Senna/Colace to see if that helps abd distension/constipation
Dietary consult --> would give ensure at least given her reduced appetite. Could consider marinol
Pulmonary will continue to briefly follow.
Assessment
-
88-year-old female with history of severe aortic insufficiency, treated for endocarditis, recurrent pulm edema hospitalized at [place], recently at rehabilitation facility with oxygen therapy with acute worsening shortness of breath. Found to be
having hypercapnic respiratory failure, acidemia, heart failure, 79% on room air. Admitted to ICU for further management
Impression:
Acute hypoxic respiratory failure - improved, pt now on room air
Acute hypercapnic respiratory failure, required NIV
Acute decompensated heart failure in setting of severe
Flash cardiogenic pulmonary edema
On chronic antibiotics for possible endocarditis
Follows cardiology at [place] ([facility])
Conditions present prior to admission
Hypertension/hyperlipidemia
Hypothyroidism
Chronic constipation
History of TUNDE/oophorectomy
History of gait dysfunction
Questionable history of asthma, patient denies
Family history of colon cancer, breast cancer, ovarian cancer, melanoma
Plan/recommendations
At this time, patient has greatly improved while on IV diuresis
Trend UOP and replete K>4, Mg>2
Trend BNP
On room air --> maintain SpO2 >90-94%
Chest x-ray on 11/22 with improved heart failure. Persistent left pleuroparenchymal process, appears to be a chronic left pleural effusion with compressive atelectasis as per CT chest from [facility] on 11/05/2023
Wheezing has resolved
NOX study performed overnight shows she does not require O2 with sleep --> her time with SpO2 <89% was 3 mins, 8 seconds, with average SpO2 of 94% (albeit freda SpO2 was 82%)
Moving forward:
Suspect flash pulmonary edema due to her severe --> defer TAVR to cardiology /CT surgery depending on patient's wishes as she had been ambivalent in terms of treatment in the past, as per cardiology documentation
Son states patient has had recurrent flash pulm edema, hospitalized and evaluated at [place]. Patient is also on antibiotics for endocarditis
Echocardiogram 11/21 with normal biventricular function, aortic valve 0.5 cm�, PA pressure 40
Unclear if triggers are hypertension, fluid shift/fluid overload, dietary discretion. Patient also describes constipation and frequent bearing down. Troponins are negative
BiPAP discontinued as per Dr. Burrows
NOX study performed last night shows she does not need O2 with sleep
Steroids already discontinued as per Dr. Burrows
Remains on cefazolin, this will continue
Lasix therapy, blood pressure control
Patient also on amiodarone
Cardiology following
[place] records have been requested
Reviewed with patient
Disposition efforts - PT recommending skilled rehab
We will continue to briefly follow.
Total time spent today was 35 minutes for this encounter. Time includes reviewing laboratory test/imaging results, reviewing pertinent medical records, obtaining and reviewing medical history, performing an appropriate exam, ordering medications,
tests and procedures. Time also includes documentation of this encounter, coordinating patient care and communicating with other healthcare professionals. Total time does not include separately billed tests performed on this date of service.
Data:
TTE 11-22-2023:
Normal left ventricular size and systolic function. LV ejection fraction is 60%
Mild concentric left ventricular hypertrophy.
Severe aortic stenosis. Aortic Valve Area is 0.5cm2.
Mild tricuspid regurgitation. Estimated pulmonary artery pressure of 35-40
mmHg.
No prior study available for comparison.
CXR 11-23-2023:
Pulmonary edema has resolved in the interval since the prior study.
There is confluent pleural parenchymal density at the retrocardiac left lung base consistent with left small- moderate pleural effusion
Subjective Data
-
Date of Service:
Date of Service: November 25, 2023
Chief Complaint: Pulmonary Follow Up
Subjective:
Seen this morning. On room air breathing comfortably. Heart rate 51. Cardiothoracic surgical CSR RETAIL at bedside as well as speaking to daughter regarding aortic valve and treatment options/prior workup done at [facility]. Patient
still not sure if she wishes to pursue treatment for her aortic valve as she does worry about the recovery and apparently her appetite is currently low which concerns the daughter.
Patient endorses constipation although she did have a bowel movement today, albeit it was small. Patient denies shortness of breath currently. Denies chest pain, headache, abdominal pain, fevers or chills.
Review of Systems
General: Other (Negative unless mentioned above)
Objective Data
Data Reviewed
Vital Signs / I&O / Oxygen:
Vital Signs
Temp Pulse Resp BP Pulse Ox
97.4 F 62 16 123/64 96
11/25/23 07:45 11/25/23 07:45 11/25/23 07:45 11/25/23 04:20 11/25/23 07:45
Intake and Output
11/24/23 11/25/23 11/26/23
06:59 06:59 06:59
Intake Total 640 / 640 240 / 240
Output Total 1200 / 1200 1050 / 1050
Balance -560 / -560 -810 / -810
SaO2 [NIV (Non Invasive 100
Ventilation)]
SaO2 96
Nasal Cannula flow liters per 2
minute
Physical Exam
General: Comfortable and Poor Appetite
HEENT: Normocephalic and Anicteric
Cardiovascular: S1-S2, Murmur (STACEY heard best at [facility]) and Peripheral Edema (negative b/l LE)
Respiratory: Wheeze (n), Crackles (bibasilar), Rhonchi (n) and Non-Labored Respirations
GI: Soft, Distended, Non Tender and Normal Bowel Sounds
Neurology: Awake, Alert and Tremors (n)
Skin: Warm and Dry
Labs/Micro/Reports
Lab Data
11/25/23 04:08
11/25/23 04:08
Microbiology
11/21/23 18:52 Blood/Venous Blood Culture - Preliminary
No Growth in 72 hours- Final report to follow
11/21/23 18:48 Blood/Venous Blood Culture - Preliminary
No Growth in 72 hours- Final report to follow
[2023-11-25] MEDS: PACERONE 200 MG PO (10:10)
[2023-11-25] MEDS: PLAVIX 75 MG PO (10:10)
[2023-11-25] MEDS: MIRALAX 17 GRAMS PO (10:10)
[2023-11-25] MEDS: FARXIGA 10 MG PO (10:11)
[2023-11-25] MEDS: ASPIR LOW (ENTERIC COATED) 81 MG PO (10:11)
[2023-11-25] MEDS: ALDACTONE 25 MG PO (10:11)
[2023-11-25] MEDS: TRANDATE 100 MG PO ×2 (10:12→20:36)
[2023-11-25] MEDS: LASIX 40 MG IV ×2 (10:13→16:50)
[2023-11-25] MEDS: ANCEF 10 IV ×2 (10:14→16:50)
[2023-11-25] MEDS: ZOFRAN 4 MG IV (11:40)
--- NOTE | 2023-11-25 11:42 | ED.GENMED ---
History of Present Illness
General
Chief Complaint: Breathing Problem
Source: family and ambulance crew
Exam Limitations: clinical condition
Time Seen by Provider: 11/21/23 18:14
Travel History
Have you had any contact with someone who has COVID-19?: Unable to Answer
Do you have any symptoms of coronavirus? Fever > 100 degrees, chills, cough, shortness of breath, sore throat, loss of taste or smell, muscle aches, or headache?: Unable to Answer
History of Present Illness
History of Present Illness:
This is an 88yo female who presents in respiratory distress. pt is being treated for endocarditis (seen at OSH). hx limited on arrival due to respiratory distress. pt reportedly did not want CPR but questionable for intubation.
Past History
Past History
ED Past Medical History: Arrthythmia, CHF, HTN, Hypercholesterolemia and Valvular disease
Social History
Tobacco: Non-smoker
Alcohol: None
Personal:
Living: with family
Phy Exam
Physical Exam
Physical Exam:
General Moderate resp distress, slow to respond
Neck mild JVD noted.
Resp rales b/l and tachypneic, moderate resp distress
CV regular, difficult to assess for mumur due to adventitious resp sounds
Abd no distention
neuro slow to respond. no focal deficits noted.
Scores
Heart Failure Risk
Heart Failure Risk Score: Yes
History of Stroke or TIA: No
History of intubation for respiratory distress: No
Heart rate on ED arrival >/= 110: No
SaO2 <90% on arrival on room air: Yes
HR >/=110 during 3min walk test (or too ill to perform test): Yes
ECG has acute ischemic changes: No
Urea >/=12mmol/L (BUN 33.6mg/dL): No
Serum CO2>/=35mmol/L: No
Troponin I or T elevated to NE Level (0.4mg/dL): No
NT-proBNP >/=5,000ng/L (5,000pg/ml): No
HF Risk Score: 3
Admission Status: HIGH RISK 15.9% Consider SNF treatment or admission to hospital
Course
Orders/Labs/Results
Orders:
Orders
11/21/23 Breakfast
Cholesterol Lowering
At Your Request: Limited, Caustic Operator Required
Cholesterol Lowering: Sodium, 2 Gram
Comment: hold if too lethargic , Nursing screen for POs
11/21/23 18:06
CR Chest Portable - 1 View Urgent
Reason For Exam: resp distress
11/21/23 18:07
Electrocardiogram (*1) Urgent
Reason for Study: Chest Pain
EKG- Treatment ONCE
11/21/23 18:09
Complete Blood Count/With Diff Urgent
Comprehensive Metabolic Panel Urgent
NT-proBNP Urgent
Comment: ADD ON
Troponin I Urgent
11/21/23 18:13
Arterial Blood Gas Stat
%Oxygen/Room Air: 79
11/21/23 18:15
Add On- LAB Stat
Tests Added?: bnp
11/21/23 18:16
Lactic Acid Urgent
Furosemide [Lasix] 40 mg IV NOW STA
11/21/23 18:48
Blood Culture Q30M
MELISSA Source: Blood/Venous
Specimen Description:
11/21/23 18:50
Cefepime HCl [Maxipime] 1,000 mg IV NOW STA
Nitroglycerin 100 mg/250 ml [Nitroglycerin Premix] 100 mg in 250 ml IV NOW
Initial dose in mcg/min, then titrate:: 5
Titrate to keep:: SBP < 160 mmHg
Titrate by mcg/min:: 5 mcg/min, may increase by 10 mcg/min if dose > 20 mcg/min
Frequency of titrations (minutes):: every 3-5 minutes
Maximum dose in mcg/min:: 200
Begin to taper infusion when:: Remained at goal for 2hrs
Taper by mcg/min:: 5 mcg/min
Frequency of taper (minutes) if patient maintains goal:: 30
Taper to off?: Yes
If infusion off & no longer maintaining goal:: Contact Provider
Vancomycin 1 Gram/200 ml [Vancocin] 1 gram in 200 ml IV NOW
11/21/23 18:52
Blood Culture Q30M
MELISSA Source: Blood/Venous
Specimen Description:
11/21/23 18:56
Sterile Water [Sterile Water For Injection] 10 ml .ROUTE .[facility]
11/21/23 19:37
Admit/Transfer Patient As Directed
Co-Sign Provider:
Level of Care: Inpatient admission
Assign to:: ICU
Physician / Group: htay
Diagnosis: Acute CHF - unknown type Moderate left pleural effusion
Reason for Hospitalization: Acute CHF - unknown type
Moderate left pleural effusion
Asso. acute Resp distress with hypoxic RF need BiPAP support
Asso. Acid base disorder: NG MA , Primary acute resp acidosis, Secondary metabolic
acidosis
Asso. Hypoactive TME
Expected length of stay greater than two midnights?: Yes
ELOS- Estimated Length of Stay in days: 5
I certify the patient meets the requirements for IP care: Yes
11/21/23 19:39
Code Status As Directed
Resuscitation Status: Full Code
11/21/23 19:55
COVID-19 Antigen Urgent
Source: Nasal Swab
11/21/23 19:57
Code Status As Directed
Resuscitation Status: Limited DNR
Limited DNR: -No intubation
-No CPR
-No defibrillation
Reached after discussion with pt or family/Healthcare POA: Yes
Based on pt advanced directive or healthcare POA form: Yes
Physician note:: can have pressors and chemical code per daughter
11/21/23 20:21
Lactic Acid Q4H
Comment: CANCEL 2nd LACTIC ACID IF 1st LACTIC ACID IS LESS THAN 2
Procalcitonin Routine
PCT Algorithmm Indication: Respiratory
11/21/23 20:55
Ipratropium/Albuterol Sulfate [Duoneb] 3 ml INH R Q4HPRN PRN
Ipratropium/Albuterol Sulfate [Duoneb] 3 ml INH R Q6
Labetalol [Trandate] 100 mg PO BID
11/21/23 20:55
HF DIETARY CONSULT Routine
HF EDUCATOR CONSULT Routine
Comment:
Activity As Directed
Activity Level: With Assistance
Intake/ Output As Directed
Frequency: Per unit guidelines
Patient Education As Directed
Type: CHF folder
Comment: give on admission. Document in Interdisciplinary Education record
Sleep Apnea Assessment by RN As Directed
Comment:
Physician Instructions:
Vital Signs As Directed
Frequency: Other
Additional Instructions:: Q12 or per unit guidelines if more frequent.
Weight As Directed
Frequency: Daily
Type of Scale: Standing Scale
Comment: Daily morning weight. If unable to stand, use balanced bed scale.
Weight As Directed
Frequency: Once
Type of Scale: Standing Scale
Comment: Upon Admission. If unable to stand, use balanced bed scale.
Pulse Ox/cont/shift [RESP] Routine
Quantity: 1
Special Instructions: Daily pulse oximetry at rest. If greater than 92% at rest also obtain pulse oximetry
while ambulating as tolerated.
DX Deep Vein Thrombosis Video Routine
11/21/23 22:30
Troponin I Q6H
Comment: at admission & every 6 hours x 2 (3 total), ECG to be done with each level
11/22/23 04:31
Basic Metabolic Panel IN AM
Cardiovascular Evaluation IN AM
Complete Blood Count/No Diff IN AM
Troponin I Q6H
Comment: at admission & every 6 hours x 2 (3 total), ECG to be done with each level
11/22/23 06:00
Echo 2D MMode Color/Doppler IN AM
Reason for Study: heart failure
Levothyroxine [Synthroid] 88 mcg PO DAILY@0600
11/22/23 08:00
Amiodarone [Pacerone] 200 mg PO DAILY
Aspirin Low Dose EC [Aspir Low (Enteric Coated)] 81 mg PO DAILY
Clopidogrel Bisulfate [Plavix] 75 mg PO DAILY
Dapagliflozin [Farxiga] 10 mg PO DAILY
Furosemide [Lasix] 40 mg IV BID AT 0800,1600
Prednisone [Deltasone] 40 mg PO DAILY
11/22/23 08:36
Troponin I Q6H
Comment: at admission & every 6 hours x 2 (3 total), ECG to be done with each level
11/22/23 18:00
Atorvastatin [Lipitor] 40 mg PO QPM
Enoxaparin Sodium [Lovenox] 40 mg SC QPM
11/23/23 03:11
Basic Metabolic Panel IN AM
Abnormal Lab Results
11/21/23 11/21/23
18:09 18:13
WBC 19.8 H 10^3/uL
(4.8-10.8)
RBC 3.99 L 10^6/uL
(4.20-5.40)
MCH 31.3 H pg
(27.0-31.0)
MCHC 32.6 L g/dL
(33.0-37.0)
Abs Immat Gran (auto) 0.5 H 10^3/uL
(0-0.05)
Absolute Neuts (auto) 10.4 H 10^3/uL
(1.4-6.5)
Absolute Lymphs (auto) 6.4 H 10^3/uL
(1.2-3.4)
Absolute Monos (auto) 1.5 H 10^3/uL
(0.1-0.6)
Absolute Eos (auto) 0.8 H 10^3/uL
(0-0.7)
Immature Gran % 2.7 H %
(0-0.5)
pH 7.21 L
(7.35-7.45)
pCO2 60 H mmHg
(32-35)
pO2 66 L mmHg
(83-108)
ABG O2 Sat (Measured) 90.9 L %
(94-98)
Sodium 133 L mmol/L
(135-145)
Potassium 5.2 H D mmol/L
(3.5-5.1)
Glucose 261 H mg/dl
(70-99)
11/21/23 18:09
11/21/23 18:09
Vital Signs
Initial and Last Documented VS:
Initial Vital Signs
Pulse Resp Pulse Ox
84 33 79
11/21/23 18:04 11/21/23 18:04 11/21/23 18:04
Last Documented Vital Signs
Temp Pulse Resp BP Pulse Ox
98.1 F 58 18 123/64 99
11/25/23 11:30 11/25/23 11:30 11/25/23 11:30 11/25/23 04:20 11/25/23 11:30
MDM/Problems Addressed
MDM/Problems Addressed:
acute decompensated CHF, endocarditis
*Radiology
Radiology exam reviewed: preliminary read by ED provider (CHF, R PICC in place)
*Pulse Oximetry
Patient hypoxic: yes
*EKG
Interpreted by ED Provider?: Yes
Interpretation: abnormal
Rate: normal
Interval: normal interval
Ischemia: non-specific ST changes
*Travel Nurse Interpretation
Rate: normal
Interpretation: normal
Rhythm: sinus
*Critical Care Note
Total Time (30-74mins, 75-104mins- exclusive of procedures): 40 minutes
Data Reviewed
Source: patient and family
Prescriptions/Medications Considered But Not Given:
considered NTG but BP settled and resp distress improved
Patient Management
Discussion with other providers: Hospitalist
Escalation/DeEscalation of care consider admission/obs:
88yo in resp distress. CHF. multiple reassessments and pt markedly improved on BIPAP. initially considered intubation but paused in light of age and condition. thankfully improved dramatically on BIPAP. admit. Lasix.
ED Attending Note
-
Portions of this chart may have been created with voice recognition software.� Occasional wrong word or��sound alike� substitutions may have occurred due to the inherent limitations of voice recognition software.
Discharge Plan
Departure
Patient Disposition: Admit
Date of Disposition: 11/21/23
Time of Disposition: 18:51
Admit to: IMU
Presentation/result/management discussed w/ accepting MD/DO: Hospitalist
Discharge Problem:
Acute decompensated heart failure, Endocarditis
Interventions
Interventions:
*Risk Screen - Suicide Last Done: 11/21/23 18:34
*General Assessment Last Done: 11/21/23 18:34
*Neglect/Abuse Screening Last Done: 11/21/23 18:34
ED- Fall Risk Assessment Last Done: 11/21/23 19:28
*ED COVID-19 Vaccine History Last Done: 11/21/23 18:34
*Nursing Disposition Last Done: 11/21/23 21:00
ED- Cardiac Assessment Last Done: 11/21/23 18:34
ED- Pulmonary Assessment Last Done: 11/21/23 18:34
Discharge Date and Time
Discharge Date/Time: 11/21/23 21:00
[2023-11-25] MEDS: DULCOLAX 10 MG RECTAL (11:53)
[2023-11-25] MEDS: DUPHALAC/CHRONULAC 13.3300000000000001 GRAMS PO (11:57)
--- NOTE | 2023-11-25 11:59 | CM ---
Chart reviewed. Patient is independent of ADLS, was living with her son in a [address], [facility], ambulating with a rolling walker. After last hospital stay patient was discharge to skilled rehab at [facility]. Patient has a bed hold at [facility]. I spoke to the patient and her son and they are agreeable to return to [facility]. I spoke to Harrison at [facility] and she confirmed they do have a bed hold. Plan is for the patient to return to [facility]. CM to follow
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
--- NOTE | 2023-11-25 16:54 | PTCARENOTE ---
Pt sent for abdominal X-ray this morning. She c/o nausea and vomited small amt clear emesis earlier today. Med with Zofran 4 mg IV as ordered with relief. Pt also c/o constipation and feeling 'bloated'. Dulcolax supp ordered and given, had a small
bm then later a mod bm, brown, formed.
[2023-11-25] MEDS: LOVENOX 40 MG SC (17:25)
[2023-11-25] MEDS: LIPITOR 40 MG PO (17:25)
[2023-11-25] MEDS: SENOKOT-S 2 TABLET PO (20:36)
[2023-11-25] MEDS: MELATONIN 3 MG PO (20:36)
[2023-11-26] VITALS (7 sets, daily range): BP systolic 102–128; BP diastolic 42–79; PULSE 54–56; O2SAT 100; BMI 23.9
[2023-11-26] MEDS: FLUSH (NSS) 2 FLUSH IV (00:37)
[2023-11-26] MEDS: ANCEF 10 IV ×2 (00:37→09:04)
[2023-11-26 04:45] LABS: Hematocrit 27.8 % (37.0-47.0); Hemoglobin 9.3 g/dL (12.0-16.0); Mean Corp Hgb Conc. 33.5 g/dL (33.0-37.0); Mean Corpuscular Hgb 31.2 pg (27.0-31.0); Mean Corpuscular Volume 93.3 fL (81.0-99.0); Mean Platelet Volume 10.4 fL (7.4-10.4); Platelet Count 230 10^3/uL (130-400); Red Blood Cell Count 2.98 10^6/uL (4.20-5.40); Red Cell Dist. Width 14.1 % (11.5-14.5); White Blood Cell Count 6.9 10^3/uL (4.8-10.8)
--- NOTE | 2023-11-26 04:48 | DOWNTIME ---
There was a [employer] Client Fur Floor Worker Downtime on 11/26/2023 from 0100 to 11/26/2023 at 0439. Downtime documentation of patient's care, including medication administrations, has been reconciled in the electronic record per guidelines. Refer to the
patient's paper chart under the miscellaneous tab to see printed paper medication records and downtime forms.
--- NOTE | 2023-11-26 05:08 | DOWNTIME ---
There was a [employer] Client Die Cutter Diamond Downtime on 11/26/2023 from 0100 to 11/26/2023 at 0439. Downtime documentation of patient's care, including medication administrations, has been reconciled in the electronic record per guidelines. Refer to the
patient's paper chart under the miscellaneous tab to see printed paper medication records and downtime forms.
[2023-11-26 05:13] LABS: Blood Urea Nitrogen 23 mg/dl (7-17); Calcium 8.8 mg/dl (8.4-10.2); Carbon Dioxide 35 mmol/L (22-30); Chloride 95 mmol/L (98-107); Estimated Creatinine Clearance 33 ml/min; Glucose 81 mg/dl (70-99); Potassium 3.8 mmol/L (3.5-5.1); Sodium 131 mmol/L (135-145); eGFR > 60.00
[2023-11-26 05:22] LABS: NT-proBNP 2420 pg/ml
[2023-11-26] MEDS: DUONEB 3 ML INH (06:40)
[2023-11-26] MEDS: SYNTHROID 88 MCG PO (07:03)
--- NOTE | 2023-11-26 07:46 | W.PN.PUL3 ---
Today's Communication / Plan
-
BNP today is improved (2420 comapred to 4840 from 5 days ago) - she appears to be euvolemic
Replete electrolytes - K>4, Mg>2
Maintain MAP>65
Goal SpO2 >90-94%
Incentive spirometer - she is currently pulling ~500-750cc
PT/OT --> recommending skilled rehab
TAVR workup/discussion as per cardiology/CT surgery and depending on patient's wishes
Continue Senna/Colace to see if that helps abd distension/constipation
Dietary consult --> would give ensure at least given her reduced appetite. Could consider marinol
Patient being prepared for discharge today to SNF/NH. Pulmonary service will now sign off. Please reconsult if there are any additional questions/concerns, or if patient's respiratory status deteriorates.
Assessment
-
88-year-old female with history of severe aortic insufficiency, treated for endocarditis, recurrent pulm edema hospitalized at [facility], recently at rehabilitation facility with oxygen therapy with acute worsening shortness of breath. Found to be
having hypercapnic respiratory failure, acidemia, heart failure, 79% on room air. Admitted to ICU for further management
Impression:
Acute hypoxic respiratory failure - improved, pt remains on room air
Acute hypercapnic respiratory failure, s/p NIV
Acute decompensated heart failure in setting of severe
Flash cardiogenic pulmonary edema
On chronic antibiotics for possible endocarditis
Follows cardiology at [facility] ([facility])
Conditions present prior to admission
Hypertension/hyperlipidemia
Hypothyroidism
Chronic constipation
History of TUNDE/oophorectomy
History of gait dysfunction
Questionable history of asthma, patient denies
Family history of colon cancer, breast cancer, ovarian cancer, melanoma
Plan/recommendations
At this time, patient has greatly improved while on IV diuresis
Trend UOP and replete K>4, Mg>2
Trend BNP
On room air --> maintain SpO2 >90-94%
Chest x-ray on 11/22 with improved heart failure. Persistent left pleuroparenchymal process, appears to be a chronic left pleural effusion with compressive atelectasis as per CT chest from [facility] on 11/05/2023
Wheezing has resolved
NOX study performed overnight 2 nights ago shows she does not require O2 with sleep --> her time with SpO2 <89% was 3 mins, 8 seconds, with average SpO2 of 94% (albeit freda SpO2 was 82%)
Moving forward:
Suspect flash pulmonary edema due to her severe --> defer TAVR to cardiology /CT surgery depending on patient's wishes as she had been ambivalent in terms of treatment in the past, as per cardiology documentation
Son states patient has had recurrent flash pulm edema, hospitalized and evaluated at [facility]. Patient is also on antibiotics for endocarditis
Echocardiogram 11/21 with normal biventricular function, aortic valve 0.5 cm�, PA pressure 40
Unclear if triggers are hypertension, fluid shift/fluid overload, dietary discretion. Patient also describes constipation and frequent bearing down. Troponins are negative
BiPAP discontinued as per Dr. Burrows
NOX study performed 2 nights ago shows she does not need O2 with sleep
Steroids already discontinued as per Dr. Burrows
ID notes reviewed � 6-week course of cefazolin should have ended on 11/23/2023. Repeat blood cultures will be drawn in December (12/09 & 12/24/2023)
Lasix therapy, blood pressure control
Patient also on amiodarone
Cardiology following
[facility] records have been requested
Reviewed with patient
Disposition efforts - PT recommending skilled rehab
Patient being prepared for discharge today to SNF/NH. Pulmonary service will now sign off. Thank you for allowing us to be involved in the care of this patient. Please reconsult if there are any additional questions/concerns, or if patient's
respiratory status deteriorates.
Total time spent today was 25 minutes for this encounter. Time includes reviewing laboratory test/imaging results, reviewing pertinent medical records, obtaining and reviewing medical history, performing an appropriate exam, ordering medications,
tests and procedures. Time also includes documentation of this encounter, coordinating patient care and communicating with other healthcare professionals. Total time does not include separately billed tests performed on this date of service.
Data:
TTE 11-22-2023:
Normal left ventricular size and systolic function. LV ejection fraction is 60%
Mild concentric left ventricular hypertrophy.
Severe aortic stenosis. Aortic Valve Area is 0.5cm2.
Mild tricuspid regurgitation. Estimated pulmonary artery pressure of 35-40
mmHg.
No prior study available for comparison.
CXR 11-23-2023:
Pulmonary edema has resolved in the interval since the prior study.
There is confluent pleural parenchymal density at the retrocardiac left lung base consistent with left small- moderate pleural effusion
AXR 11-25-2023: Moderate colonic stool burden. Nonobstructive bowel gas pattern.
Subjective Data
-
Date of Service:
Date of Service: November 26, 2023
Chief Complaint: Pulmonary Follow Up
Subjective:
Patient seen this morning. Being prepared for discharge home. No acute events reported from overnight. On room air breathing comfortably with SpO2 96%.
Review of Systems
General: Other (Negative unless mentioned above)
Objective Data
Data Reviewed
Vital Signs / I&O / Oxygen:
Vital Signs
Temp Pulse Resp BP Pulse Ox
97.7 F 62 16 128/62 96
11/26/23 04:00 11/26/23 06:44 11/26/23 06:44 11/26/23 04:00 11/26/23 06:44
Intake and Output
11/25/23 11/26/23 11/27/23
06:59 06:59 06:59
Intake Total 240 / 240 240 / 240
Output Total 1050 / 1050 275 / 275
Balance -810 / -810 -35 / -35
SaO2 [NIV (Non Invasive 100
Ventilation)]
SaO2 96
Nasal Cannula flow liters per 2
minute
Physical Exam
General: Comfortable and Poor Appetite
HEENT: Normocephalic and Anicteric
Cardiovascular: S1-S2, Murmur (STACEY heard best at RUSB) and Peripheral Edema (negative b/l LE)
Respiratory: Wheeze (n), Crackles (bibasilar), Rhonchi (n) and Non-Labored Respirations
GI: Soft, Distended, Non Tender and Normal Bowel Sounds
Neurology: Awake, Alert and Tremors (n)
Skin: Warm and Dry
Labs/Micro/Reports
Lab Data
11/26/23 04:12
11/26/23 04:15
Microbiology
11/21/23 18:52 Blood/Venous Blood Culture - Preliminary
No Growth in 4 days- Final report to follow
11/21/23 18:48 Blood/Venous Blood Culture - Preliminary
No Growth in 4 days- Final report to follow
[2023-11-26] MEDS: PLAVIX 75 MG PO (09:02)
[2023-11-26] MEDS: SENOKOT-S 2 TABLET PO (09:02)
[2023-11-26] MEDS: BUMEX 1 MG PO (09:03)
[2023-11-26] MEDS: TRANDATE 100 MG PO (09:03)
[2023-11-26] MEDS: ASPIR LOW (ENTERIC COATED) 81 MG PO (09:03)
[2023-11-26] MEDS: MIRALAX 17 GRAMS PO (09:04)
[2023-11-26] MEDS: FARXIGA 10 MG PO (09:04)
[2023-11-26] MEDS: PACERONE 200 MG PO (09:04)
[2023-11-26] MEDS: ALDACTONE 25 MG PO (09:10)
--- NOTE | 2023-11-26 09:25 | W.PN.HOSP.TC ---
Addendum entered and electronically signed by Isa Vega MD 11/26/23 15:12:
According to ID, patient has completed IV antibiotic course, her PICC line can be discontinued.
total DC time 40 min
Original Note:
Today's Communication/Plan
-
see A/P
Assessment / Plan
Assessment / Plan
HPI: 88-year-old female with past medical history of aortic stenosis being worked up for TAVR who was admitted for shortness of breath, found to have flash pulmonary edema.
A/P:
# Acute hypoxic respiratory failure
# Acute flash pulmonary edema
# Acute on chronic heart failure with preserved ejection fraction
# Paroxysmal A fib
Appreciate banking analyst and cardiology input, much improved on IV Lasix
Status post NIV, then on 4L to 2L NC, now weaned back to RA. Pt has home O2 but has not started using it.
IV Lasix 40 mg twice daily -> PO Bumex 1 mg daily
Continue Labetalol, spironolactone, amiodarone and Farxiga
steroids discontinued by banking analyst
# Severe aortic stenosis
# Left bundle branch block
CT surgery on board for TAVR eval
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
11/21 JOSHUA neg for vegetation
Continue IV Ancef for 6 weeks total
ID consulted per CT surgery request
# Coronary artery disease
Continue aspirin, Plavix, statin
# Hypertensive emergency, resolved
Blood pressure much improved on IV Lasix
Continue labetalol, spironolactone
# Chronic normocytic anemia
Trend hemoglobin
# Leukocytosis
Likely from steroids
resolved
# Hyperlipidemia
Continue statin
# Hypothyroidism
Continue Synthroid
# Abdominal bloating due to constipation, resolved
AXR noted moderate colonic stool burden.
Bowel regimen started
DVT prophylaxis� SQ Lovenox
Code Status - DNI. No CPR. No Defib. Yes to chemical dose per patient and daughter at bed side
DW RN
updated daughter on the phone
Anticipated Discharge: Today
Subjective/Interval History
-
Date of Service: November 26, 2023
Objective Data
-
Labs:
Laboratory Results
11/26/23 11/26/23
04:12 04:15
WBC 6.9
Hgb 9.3 L
Hct 27.8 L
Plt Count 230
Sodium 131 L
Potassium 3.8
Chloride 95 L
Carbon Dioxide 35 H
BUN 23 H
Creatinine 0.9
Glucose 81
Calcium 8.8
Vital Signs:
Vital Signs
Temp Pulse Resp BP Pulse Ox
36.4 C 62 16 128/62 97
11/26/23 08:00 11/26/23 06:44 11/26/23 08:00 11/26/23 04:00 11/26/23 08:00
I&O
11/25/23 11/26/23 11/27/23
06:59 06:59 06:59
Intake Total 240 / 240 240 / 240
Output Total 1050 / 1050 275 / 275
Balance -810 / -810 -35 / -35
Review of Systems
-
All other systems: Reviewed and negative
Abdomen/GI: Denies Bloated
Physical Exam
-
General: Well Developed, Well Nourished, Comfortable, Conversant and Appears Chronically Ill
HEENT: Normocephalic, Atraumatic, Nose Appears Normal and Ears Appear Normal; Negative Oxygen
Respiratory: Clear to Auscultation and Non Labored Respirations; Negative Accessory Resp Muscle Use
Cardiac: Regular Rhythm, S1/S2 and Murmur
GI: Soft, Nontender, Nondistended and Normal Bowel Sounds
Skin: Warm and Dry
Neuro: Awake and Alert
Psych: Calm and Intact Judgement/Insight (somewhat)
Data Reviewed
-
Labs: Labs Reviewed by me
--- NOTE | 2023-11-26 09:52 | W.PN.CD ---
Today's Communication / Plan
-
- Follow up with TAVR team to be arranged
- Follow up with us on December 16 at 10:40 December 16
- d/w daughter and patient at length. If she declines/not offered TAVR, then hospice is appropriate
Impression / Plan
-
Impression: 88F with recurrent flash pulmonary edema in the setting of sevewre
History: obtained from son,[place] records, [facility] records. She follows with Dr. Shannon at [facility]. She has severe ASUnfortunately, she has had recurrent flash pulmonary edema (4 admissions since Sep) and been treated at [facility]. She had LHC and PCI in
09/2023. In addition, a vegetation was discovered (TAVR CT) on aortic valve (also bacteremic with s. lugendesis) and she is receiving IV antibiotics for endocarditis (stop date Nov 22). The ultimate plan was to participate in rehab, recover
strength, and undergo the TAVR that was previously deferred. Her son wishes to transfer care to .
Plan:
Flash pulmonary edema/HFpEF - likely acute on chronic HFPEF due to severe
- ultimate treatment will be TAVR -> team aware and following
- need ID input that infection cleared and we can place TAVR
- Needs studies, etc, from [facility] TAVR team
- transitioned to oral diuretic
Severe
- ID consult
- TAVR team aware
Paroxysmal A fib
- rhythm is SR with LBBB
- on amiodarone, labetalol
- not on OAC per notes
LBBB - since 2011
Endocarditis: aortic valve
- Echo shows severe calcification of valves, including aortic valve, but no obvious vegetation. As above it was the TAVR CAP and bacteremia that lead to presumptive IE diagnosis
- Bcx here 11/20: no growth to date
- ID consult for duration of Abx and will need clearance for TAVR
CAD: s/p stent 09/2023
-awaiting records
- DAPT
- statin
Hypertension
-cont home labetalol/spironolactone
-monitor with diuresis
Dyslipidemia
-LDL at goal at 45
-cont atorvastatin 40mg daily
Dispo
- Follow up with TAVR team to be arranged
- Follow up with us on December 16 at 10:40 December 16
- d/w daughter and patient at length. If she declines/not offered TAVR, then hospice is appropriate
Subjective: No CP, palps, or dyspnea
TTE Nov 21: Normal EF, mild LVH, severe 68/39/0.5 cm2. DI 0.2 and SVI low at 31 ml/min
Physical Exam
Vital Signs/Labs
Vital Signs
Temp Pulse Resp BP Pulse Ox
36.4 C 62 16 128/62 97
11/26/23 08:00 11/26/23 06:44 11/26/23 08:00 11/26/23 04:00 11/26/23 08:00
11/25/23 11/26/23 11/27/23
06:59 06:59 06:59
Actual Weight 127 lb 126 lb 9 oz
11/26/23 04:12
11/26/23 04:15
PT 18.6 Sec (11.4-14.6) H 11/21/23 22:30
INR 1.57 11/21/23 22:30
APTT 27.9 Sec (23.4-35.0) 11/21/23 22:30
Magnesium 1.8 mg/dl (1.6-2.3) 11/25/23 04:08
Triglycerides 104 mg/dl (10-149) 11/22/23 04:31
LDL Cholesterol, Calc 45 mg/dl 11/22/23 04:31
VLDL Cholesterol, Calc 20 mg/dl (0-30) 11/22/23 04:31
HDL Cholesterol 62 mg/dl 11/22/23 04:31
11/21/23 11/26/23
18:09 04:15
Hek-D-Pxlnrmskhfm Pept 4840 1830
Physical Exam
Constitutional: No acute distress
EENT: Anicteric and Moist mucous membranes
Cardiovascular: Rhythm & rate is regular, Diastolic murmur absent and Systolic murmur present
Respiratory: Respiratory effort normal
GI: Soft, Distention absent, Non tender and Normal bowel sounds
Neuro/Psych: Alert
Data Reviewed
-
Date of Service: November 26, 2023
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
--- NOTE | 2023-11-26 12:44 | CON.ID ---
Addendum entered and electronically signed by Jarocho Rosen DO 11/26/23 13:52:
Outside records from [facility] reviewed in regards to course of antibiotics. Patient was to complete her 6-week course of cefazolin on 11/23/2023. Thereafter, she would be observed off of antibiotic therapy.
Additional recommendations were to check blood cultures at 2 weeks in 4 weeks following the completion of antibiotics. At this point in time, and following prior recommendations, she should have blood cultures drawn on 12/10/2023 and 12/24/2023.
Original Note:
Consultation
-
Date/Time Consultation Requested: 11/26/2023 07:48
Date/Time Consultation Performed: 11/26/2023 1200
Requesting Provider: Dr. Vega
Performing Provider: Dr. Rosen
Reason for Consultation: Hx of IE 2* Staph. lugdunensis
Chief Complaint / Past History
History of Present Illness
Veronica Chappell is an 88-year-old female being evaluated at the request of Dr. Vega in regards to endocarditis and ongoing antimicrobial management. History is obtained from chart review, along with patient interview. Additional history was
obtained from the patient's daughter who was at the bedside.
According to reviewed notes on the daughter's phone, the patient was initially diagnosed with endocarditis on 10/05/2023 while an inpatient at [facility]. She was discharged in early October to a local correction, to
complete a 6-week course of antibiotics (reportedly cefazolin 2 g IV every 8 hours, ?through 11/16/23.)
In early October it appears that she was readmitted to [facility], but was now transitioned to vancomycin and cefepime, presumably in treatment of pneumonia. She was subsequently discharged back to [facility].
The patient was admitted to [facility] on 11/21/2023 secondary to shortness of breath, and she was diagnosed with flash pulmonary edema. It appears that she was on cefazolin at the time of admission, and it is continued through the present.
She has been found to have severe aortic stenosis, and is currently being evaluated for a TAVR procedure. Infectious Diseases is asked to comment upon further antimicrobial therapy.
At present, the patient denies any fevers or chills. She reports breathing is comfortable. She denies any difficulty with her RUE PICC line. She has had no trouble with antibiotics thus far.
Past History
Additional Past Medical History:
CHF
Severe
CAD
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
HTN
Dyslipidemia
COPD
Allergy History:
sulfamethoxazole Allergy (Verified 11/21/23 19:09)
Unknown
Medications Reviewed: Yes
Current Antibiotics:
Ancef 2 gm IV q8h
Social History
Tobacco: Non-Smoker
Alcohol: None
Drug: None
Living: Senior Living
Employment: Retired
Review of Systems
Vital Signs
Temp Pulse Resp BP Pulse Ox
98.5 F 54 16 105/50 100
11/26/23 11:49 11/26/23 10:46 11/26/23 11:49 11/26/23 10:46 11/26/23 11:49
Physical Exam
Physical Exam
Constitutional: No Acute Distress, Comfortable, Chronically Ill and Non-toxic
Eyes: Pupils Equal, Pupils Round, No Conjunctival Hemorrhage and Sclera Anicteric
Oral: No Thrush and No Ulcers
Cardiovascular: Irregular Rate and S1/S2; Negative S3/S4
Pulmonary: Clear; Negative Wheezes, Rales or Rhonchi
Gastrointestinal: Soft, Non Tender, Non Distended and Normal Bowel Sounds
Extremities: Negative Edema, Cyanosis, Erythema, Splinter Hemorrhage or Janeway Lesions
Neurological: Awake and Alert
Psychological: Calm
Lab / Diagnostic Study Results
11/26/23 04:12
11/26/23 04:15
Abs Immat Gran (auto) 0.5 10^3/uL (0-0.05) H 11/21/23 18:09
Absolute Neuts (auto) 10.4 10^3/uL (1.4-6.5) H 11/21/23 18:09
Absolute Lymphs (auto) 6.4 10^3/uL (1.2-3.4) H 11/21/23 18:09
Absolute Monos (auto) 1.5 10^3/uL (0.1-0.6) H 11/21/23 18:09
Absolute Basos (auto) 0.2 10^3/uL (0-0.2) 11/21/23 18:09
Immature Gran % 2.7 % (0-0.5) H 11/21/23 18:09
Neutrophils % 52.6 % (42.2-75.2) 11/21/23 18:09
Lymphocytes % 32.0 % (20.5-51.1) 11/21/23 18:09
Monocytes % 7.6 % (1.7-9.3) 11/21/23 18:09
Eosinophils % 4.1 % (0-6) 11/21/23 18:09
Basophils % 1.0 % (0-2) 11/21/23 18:09
PT 18.6 Sec (11.4-14.6) H 11/21/23 22:30
INR 1.57 11/21/23 22:30
Lactic Acid 1.2 mmol/L (0.7-2.0) 11/21/23 20:21
Procalcitonin 0.09 ng/ml (0.0-0.25) 11/21/23 20:21
Microbiology Results
Micro:
11/21/23 18:52 Blood Culture - Preliminary
Blood/Venous No Growth in 4 days- Final report to follow
11/21/23 18:48 Blood Culture - Preliminary
Blood/Venous No Growth in 4 days- Final report to follow
Imaging:
11/22/2023 ECHO: Normal LV size and function. EF approximately 60%. Severe aortic stenosis. Mild tricuspid regurg.
Assessment / Plan
Staph lugdunensis endocarditis (by history)
- On course of IV cefazolin
Severe
- current W/O for TAVR
CHF
Severe
CAD
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
HTN
Dyslipidemia
COPD
Recommendations:
Continue cefazolin for the present.
Will review OSH records (from [facility]). I have placed a call to the patients ID physician at [facility] (Dr. Jessica Valerio; [phone]) to further discuss prior history and prior therapy, along with determining what the actual antibiotic end date is. Will
await callback.
--- NOTE | 2023-11-26 13:18 | PTCARENOTE ---
Report called to Ankita, nurse at [facility], Pt to picked up at 2pm by wheelchair van. Dr Rosen seeing Pt now.
--- NOTE | 2023-11-26 14:01 | PTCARENOTE ---
R PICC line to be D/c'd prior to D/C. IVT notified.
--- NOTE | 2023-11-26 14:23 | VATNOTE ---
Called to remove right picc prior to discharge. TCL 36 CM removed without difficulties.
--- NOTE | 2023-11-26 14:57 | W.DCSUMMARY ---
Discharge Summary
Discharge Data
Date of Admission: 11/21/23
Date of Discharge: 11/26/23
-
Pending Results: No
Hospital Course
Principal Diagnosis:
Acute hypoxic respiratory failure with acute flash pulmonary edema, due to acute on chronic heart failure with preserved ejection fraction
Severe aortic stenosis
Aortic valve endocarditis, completed IV Ancef for total of 6 weeks (end date 11/23/2023).
Abdominal bloating due to constipation, resolved
Chronic Diagnoses:�
Paroxysmal Atrial fibrillation
Coronary artery disease on aspirin, Plavix, statin
Essential hypertension
Chronic normocytic anemia
Hyperlipidemia
Hypothyroidism on Synthroid
Consultations:�
Cardiology
Cardiothoracic surgery
Infectious disease
Air Crew Member
Procedures:�
None
Clinical course:�
This is a 88-year-old female with past medical history as stated above, who presented with shortness of breath, and was found to be in flash pulmonary edema.
Problem 1:
Acute hypoxic respiratory failure with acute flash pulmonary edema, due to acute on chronic heart failure with preserved ejection fraction.
She was treated with IV Lasix twice daily while in the hospital, and this was changed to oral Bumex 1 mg daily upon discharge.
She was also initially placed on noninvasive ventilation, then was slowly weaned back to room air prior to discharge.
She can continue with her prior to admission Labetalol, spironolactone, amiodarone and Farxiga.
Problem 2:
Severe aortic stenosis.
Patient was seen by CT surgery for TAVR eval. This can be further addressed outpatient.
Problem 3:
Aortic valve endocarditis.
She has completed IV Ancef for a total of 6 weeks during this admission (end date was suppose to be on 11/23/2023).
Her JOSHUA on 11/21 was negative for vegetation.
As for the rest of her medical problems, they were stable during her hospital stay.
Discharge Plan
-
Patient Disposition: Snf/SNF
Discharge Diagnosis/Procedures: Acute hypoxic respiratory failure due to flash pulmonary edema from acute on chronic heart failure with preserved ejection fraction and Severe aortic stenosis; aortic valve endocarditis since September 2023 (completed
antibiotic Ancef on 11/22)
Condition: Fair
Diet: As tolerated, Low Sodium and Restrict fluids to 48 oz
Activity: As tolerated
Driving Restrictions: No driving
Blood Work: Check repeat blood culture on 12/10/2023 and 12/24/2023 at SNF
Instructions: *PCP/Other Business Professor Heart Failure Instructions
[facility]:
[facility] [Outside]
Micah Frost DO [Family Provider] - in less than 1 week
Darren George MD [Active] - 12/09/23 9:30 am
Additional Discharge Medication Instructions: Continue to take Bumex 1 mg daily
Prescriptions:
New
bumetanide 1 mg Tablet
1 mg PO DAILY Qty: 30 0RF
Continued
atorvastatin 40 mg tablet
40 mg PO QPM
acetaminophen 325 mg Tablet
650 mg PO Q4H PRN (Reason: mild pain/fever>100.4)
ipratropium-albuterol 0.5 mg-3 mg(2.5 mg base)/3 mL Solution For Nebulization
3 ml INHALATION R Q6
polyethylene glycol 3350 [Miralax] 17 gram Powder In Packet
17 g PO DAILY
amiodarone 200 mg Tablet
200 mg PO DAILY
melatonin 3 mg Tablet
3 mg PO QPM
clopidogrel 75 mg Tablet
75 mg PO DAILY
aspirin 81 mg Tablet,Delayed Release (Dr/Ec)
81 mg PO DAILY
spironolactone 25 mg tablet
25 mg PO DAILY
levothyroxine 88 mcg Tablet
88 mcg PO DAILY
bisacodyl [Dulcolax (bisacodyl)] 10 mg Suppository
10 mg [place] DAILYPRN PRN (Reason: if lactulose is ineffective)
Fleet Enema 19-7 gram/118 mL Enema
118 ml [place] DAILY PRN (Reason: if dulcolax ineffective)
labetalol 100 mg Tablet
100 mg PO BID
lactulose 10 gram/15 mL Solution
20 ml PO HSPRN PRN (Reason: constipation)
dapagliflozin propanediol 10 mg tablet
10 mg PO DAILY
Discontinued
cefazolin 2 gram Recon Soln
2 g IV TID
Patient Comments:
@0000,0800,1600
Discharge Orders:
Discharge Patient (As Directed); Ordered 11/26/23
Ordered By: Isa Vega
Care Plan Goals
Care Plan Goals:
Problem: Readiness for enhanced knowledge related to diagnosis and treatment plan
Goal: Understand your diagnosis and treatment plan needs, including medications if applicable.
Instructions: Know your diagnosis, underlying causes and treatment plan options, including medications if applicable. Consult with your health care team to learn about your diagnosis and treatment plan, including medications if applicable.
Discharge Date and Time
Print Language: NORWEGIAN
--- NOTE | 2023-11-26 15:20 | PTCARENOTE ---
PICC line D/C'd by IV team, Pt stayed on bedrest for 1/2 hr. Pt then left with Acute Care wheelchair van for Ita Ramos.
== END 2023-11-26 15:13 | DRG 291 ==
LOC: IVU 20:25
PROVIDERS: Family Medicine; Internal Medicine Critical Care Medicine; Nurse Practitioner Primary Care; ADMITTING PHYSICIAN Internal Medicine; ATTENDING PHYSICIAN Internal Medicine; CONSULT PHYSICIAN Internal Medicine Cardiovascular Disease; CONSULT PHYSICIAN Internal Medicine Critical Care Medicine; CONSULT PHYSICIAN Student in an Organized Health Care Education/Training Program; CONSULT PHYSICIAN Thoracic Surgery (Cardiothoracic Vascular Surgery); EMERGENCY PHYSICIAN Emergency Medicine; FAMILY PHYSICIAN Student in an Organized Health Care Education/Training Program
DX: I11.0 Hypertensive heart disease with heart failure (principal); I50.33 Acute on chronic diastolic (congestive) heart failure; J96.01 Acute respiratory failure with hypoxia; J81.0 Acute pulmonary edema; J96.02 Acute respiratory failure with hypercapnia; I16.1 Hypertensive emergency; E87.29 Other acidosis; I35.0 Nonrheumatic aortic (valve) stenosis; K59.09 Other constipation; I48.0 Paroxysmal atrial fibrillation; I25.10 Atherosclerotic heart disease of native coronary artery without angina pectoris; D64.9 Anemia, unspecified; E03.9 Hypothyroidism, unspecified; E11.9 Type 2 diabetes mellitus without complications; Z79.2 Long term (current) use of antibiotics
CPT/HCPCS: 71045; 74018; 80048; 80053; 80061; 82805; 82962; 83605; 83735; 83880; 84100; 84145; 84484; 85025; 85027; 85610; 85730; 87040; 87811; 93005; 93306; 94002; 94640; 94660; 94762; 96374; 96375; 97116; 97163; 97166; 97530; 97535; 99285

== ENCOUNTER → 2023-12-01 11:13 | Outpatient (REF) | payer OTHER, MEDICARE, SELFPAY ==
[2023-12-01 11:53] LABS: % Basophils 1.1 % (0-2); % Eosinophils 5.1 % (0-6); % Immature Granulocytes 1.1 % (0-0.5); % Lymphocytes 22.8 % (20.5-51.1); % Monocytes 13.4 % (1.7-9.3); % Neutrophils 56.5 % (42.2-75.2); Absolute Basophils 0.1 10^3/uL (0-0.2); Absolute Eosinophils 0.4 10^3/uL (0-0.7); Absolute Immature Granulocytes 0.1 10^3/uL (0-0.05); Absolute Lymphocytes 1.9 10^3/uL (1.2-3.4); Absolute Monocytes 1.1 10^3/uL (0.1-0.6); Absolute Neutrophils 4.8 10^3/uL (1.4-6.5); Hematocrit 30.4 % (37.0-47.0); Hemoglobin 9.8 g/dL (12.0-16.0); Mean Corp Hgb Conc. 32.2 g/dL (33.0-37.0); Mean Corpuscular Hgb 31.1 pg (27.0-31.0); Mean Corpuscular Volume 96.5 fL (81.0-99.0); Mean Platelet Volume 10.8 fL (7.4-10.4); Nucleated Red Blood Cells % 0 %; Platelet Count 254 10^3/uL (130-400); Red Blood Cell Count 3.15 10^6/uL (4.20-5.40); Red Cell Dist. Width 14.2 % (11.5-14.5); White Blood Cell Count 8.5 10^3/uL (4.8-10.8)
[2023-12-01 13:46] LABS: Blood Urea Nitrogen 17 mg/dl (7-17); Carbon Dioxide 28 mmol/L (22-30); Chloride 94 mmol/L (98-107); Glucose 98 mg/dl (70-99); Potassium 3.8 mmol/L (3.5-5.1); Sodium 130 mmol/L (135-145); eGFR > 60.00
== END ==
LOC: OLABN 11:13
PROVIDERS: ATTENDING PHYSICIAN Student in an Organized Health Care Education/Training Program
DX: E87.1 Hypo-osmolality and hyponatremia (principal); I33.0 Acute and subacute infective endocarditis
CPT/HCPCS: 36415; 80048; 85025

== ENCOUNTER → 2023-12-08 12:37 | Outpatient (REF) | payer OTHER, MEDICARE, SELFPAY ==
[2023-12-08 14:28] LABS: Blood Urea Nitrogen 12 mg/dl (7-17); Calcium 9.3 mg/dl (8.4-10.2); Carbon Dioxide 25 mmol/L (22-30); Chloride 100 mmol/L (98-107); Glucose 112 mg/dl (70-99); Potassium 4.1 mmol/L (3.5-5.1); Sodium 133 mmol/L (135-145); eGFR > 60.00
== END ==
LOC: OLABN 12:37
PROVIDERS: ATTENDING PHYSICIAN Student in an Organized Health Care Education/Training Program
DX: E87.1 Hypo-osmolality and hyponatremia (principal)
CPT/HCPCS: 36415; 80048

== ENCOUNTER → 2023-12-10 11:16 | Outpatient (REF) | payer OTHER, MEDICARE, SELFPAY | LOC: OLABN 11:16 | PROVIDERS: ATTENDING PHYSICIAN Student in an Organized Health Care Education/Training Program | DX: I33.0 Acute and subacute infective endocarditis (principal) | CPT/HCPCS: 36415; 87040 ==

== ENCOUNTER → 2023-12-24 10:40 | Outpatient (REF) | payer OTHER, MEDICARE, SELFPAY | LOC: OLABN 10:40 | PROVIDERS: ATTENDING PHYSICIAN Student in an Organized Health Care Education/Training Program | DX: I33.0 Acute and subacute infective endocarditis (principal) | CPT/HCPCS: 36415; 87040 ==

== ENCOUNTER 2024-01-08 09:15 | Inpatient (IN) | payer MEDICARE, SELFPAY ==
[2024-01-02 09:45] VITALS: BMI 22.7
[2024-01-02 10:31] LABS: % Eosinophils 2.4 % (0-6); % Immature Granulocytes 0.8 % (0-0.5); % Monocytes 13.6 % (1.7-9.3); % Neutrophils 62.2 % (42.2-75.2); Absolute Basophils 0.1 10^3/uL (0-0.2); Absolute Eosinophils 0.2 10^3/uL (0-0.7); Absolute Immature Granulocytes 0.1 10^3/uL (0-0.05); Absolute Lymphocytes 1.8 10^3/uL (1.2-3.4); Absolute Monocytes 1.3 10^3/uL (0.1-0.6); Absolute Neutrophils 5.7 10^3/uL (1.4-6.5); Hematocrit 32.9 % (37.0-47.0); Hemoglobin 10.9 g/dL (12.0-16.0); Mean Corp Hgb Conc. 33.1 g/dL (33.0-37.0); Mean Corpuscular Hgb 31.8 pg (27.0-31.0); Mean Corpuscular Volume 95.9 fL (81.0-99.0); Mean Platelet Volume 10.5 fL (7.4-10.4); Nucleated Red Blood Cells % 0 %; Platelet Count 256 10^3/uL (130-400); Red Blood Cell Count 3.43 10^6/uL (4.20-5.40); Red Cell Dist. Width 13.7 % (11.5-14.5); White Blood Cell Count 9.2 10^3/uL (4.8-10.8)
[2024-01-02 10:43] LABS: PT 15.1 Sec (11.4-14.6)
[2024-01-02 10:44] LABS: APTT 25.3 Sec (23.4-35.0)
[2024-01-02 11:06] LABS: ALT (SGPT) 19 U/L (0-35); AST (SGOT) 25 U/L (14-36); Albumin 4.1 g/dl (3.5-5.0); Alkaline Phosphatase 72 U/L (38-126); Blood Urea Nitrogen 24 mg/dl (7-17); Calcium 9.7 mg/dl (8.4-10.2); Carbon Dioxide 27 mmol/L (22-30); Chloride 104 mmol/L (98-107); Direct Bilirubin 0.3 mg/dl (0.0-0.4); Estimated Creatinine Clearance 31 ml/min; Glucose 111 mg/dl (70-99); Sodium 139 mmol/L (135-145); Total Bilirubin 0.5 mg/dl (0.2-1.3); Total Protein 7.1 g/dl (6.3-8.2); eGFR 54.19
[2024-01-02 11:12] LABS: NT-proBNP 2780 pg/ml
[2024-01-02 11:50] LABS: Urine Albumin Trace (Neg - Trace); Urine Bilirubin Negative (Negative); Urine Character Clear (Clear); Urine Color Yellow; Urine Glucose 3+ (Negative); Urine Ketone Negative (Negative); Urine Leukocyte 2+ (Negative); Urine Nitrite Positive (Negative); Urine Occult Blood Trace (Negative); Urine Urobilinogen Negative (Neg - 1+)
[2024-01-02 12:07] LABS: Urine Bacteria Many (Negative); Urine White Cell 26-30 /HPF (0-5)
--- NOTE | 2024-01-02 12:08 | CM ---
Chart reviewed. Met with the patient and her son in PAT. Patient is currently Skilled Rehab at [facility]. Patient does have a bed hold. Patient is wheelchair bound. Patient does use a rolling walker during PT. Plan is for the patient
to return to [facility]. Reviewed preoperative and postoperative instructions and restrictions. Gave patient 2 soaps, along with showering instructions. Plan is to return to [facility].
[2024-01-02 12:09] LABS: Urine Triple Phosphate Crystal Seen
[2024-01-02 13:11] LABS: Glycohemoglobin (HgbA1c) 5.8 % (4.0-5.6)
[2024-01-08] VITALS (12 sets, daily range): BP systolic 94–167; BP diastolic 41–59; BMI 22.5
[2024-01-08] MEDS: ANCEF 10 IV ×2 (06:00→07:00)
--- NOTE | 2024-01-08 09:26 | CM ---
Patient in OR today for planned TAVR.
Reviewed initial assessment. Pt. is a prison care resident of [facility]. She is wheelchair bound. Bed hold in place.
DC plan is to return to [facility].
CM to follow.
[2024-01-08 14:01] LABS: ACT-LR - POC 260 Seconds (116-155)
--- NOTE | 2024-01-08 14:18 | W.CVOR.SURPR ---
CVOR Surgeon Immed Pre Op
-
I have examined this patient prior to performance of the scheduled procedure.
The patient's condition is unchanged from the time of the dictated/written History and
Physical and the patient is able to undergo the scheduled procedure.
--- NOTE | 2024-01-08 14:18 | W.IMMPOSTOP ---
Surgical Immed Post Op Note
-
[id number]
STRUCTURAL HEART PROCEDURE NOTE: TAVR
Preoperative Dx:
Severe aortic stenosis (P/M: 68/39, LORNE 0.5)
Mild MS
HFpEF
COPD
LBBB
Questionable prior endocarditis
CAD s/p DOMINICK
Hypothyroidism
COPD
PAC not on OAC
HTN/HLD
Postoperative Dx:
Same
Significant diastolic dysfunction
Procedures:
1) L CONSTRUCTION SKILLS TEACHER access w/ tactile, U/S, and fluoroscopic guidance, micropuncture technique, limited angiography, 8Fr dilator placement
2) Perclose placement x 2 into L CONSTRUCTION SKILLS TEACHER, 8Fr sheath placement
3) R CFV access w/ U/S and fluoroscopic guidance, micropuncture technique, 6Fr sheath placement
4) R CONSTRUCTION SKILLS TEACHER access w/ tactile, U/S, and fluoroscopic guidance, micropuncture technique, limited angiography, 6Fr sheath placement
5) Placement of temporary RV pacing wire, threshold testing
6) Placement of pigtail catheter in RCC, limited aortography w/ confirmation of co-planar valve deployment angle
7) Serial dilation of L CONSTRUCTION SKILLS TEACHER/ileofemoral system w/ subsequent placement of Rubio E-sheath - systemic heparinization
8) Wire purchase across stenotic AV (AL-1, soft-tip straight, extra-stiff) w/ LVEDP assessment (22mmHg)
9) L TF TAVR w/ placement of 23mm ALFA 3 valve
10) Completion aortography
11) Completion TTE (mean gradient 4mmHg, no AI/PVL post wire removal)
12) Removal of iswtw-xieocnvv-yljgbs/Rubio E-sheath w/ L CONSTRUCTION SKILLS TEACHER mgmt w/ perclose sutures x 2; manual pressure
13) Completion ileofemoral angiography
14) Removal of R CONSTRUCTION SKILLS TEACHER 6Fr sheath w/ mgmt w/ 6Fr angioseal; manual pressure
15) Removal of temporary pacing wire and R CFV sheath w/ manual pressure
Proposition Player:
Dr. Julio Cesar Guzman
Cardiac Surgeon:
Dr. Darren George
Anesthesia:
MAC & local to B/L groins
Implants:
Rubio [employer]; 23mm ALFA 3 valve; [id number]
Perclose x 2
6Fr angioseal x 1
Cath Data:
Start: 1336, Deploy:1402, End: 1414
FT: 6.0min, mGy: 157.70, DAP: 18.0049, Contrast: 85
Post TTE: mean gradient 4mmHg, no AI/PVL
Complications:
None
Condition:
Stable/guarded to recovery
--- NOTE | 2024-01-08 14:23 | ITS.CL.TAVR ---
Interpretative Dancer - TAVR Report
TAVR PRocedure
Procedure Report:
TRANSCATHETER AORTIC VALVE REPLACEMENT REPORT
Date: 01/08/2024
Referring physician: Rene Shannon M.D.
Preop diagnosis: Severe aortic valve stenosis, questionable history of prior endocarditis.
Postop diagnosis: Severe aortic valve stenosis, questionable history of prior endocarditis.
Procedure: Transcatheter aortic valve replacement (TAVR) using a # 23 Rubio MICKEY S3 Ultra.
Operators: Julio Cesar Guzman DO, Darren George M.D.
Findings: Severely calcified and stenotic aortic valve.
Anesthesia: Concious sedation was provided by the anesthesia staff.
Estimated blood loss: Negligable.
Complications: None.
Condition: Stable
Procedure:
The patient was brought to the cardiac collaborative physician after consent and was prepped and draped in standard sterile fashion. Conscious sedation was provided by the anesthesia staff. After a 'Time Out,' bilateral common femoral arteries and the right
femoral common vein were access using a modified Seldinger technique with a micropuncture kit under ultrasound guidance. A 6 Wolof sheath was placed in the right femoral vein. Angiography performed through the micropuncture sheath confirmed
satisfactory arterial placement in the right common femoral artery. The micropuncture sheath was replaced with a 6Fr sheath in the right CHIEF RISK OFFICER. Angiography through the micropuncture kit confirmed satisfactory arterial placement in the left common
femoral artery. The left CHIEF RISK OFFICER was dilated with an 8FR dilator and preclosed with two Perc-Close devices. An 8Fr sheath was placed in the LCFA. A temporary pacing wire was advanced through the right femoral vein and into the right ventricle. The
pacemaker demonstrated good capture and was set to back up. A 5Fr pigtail catheter was advanced through the right femoral sheath and seated in the right coronary cusp. Angiography confirmed co-planar angles.
An AL-1 catheter was advanced through the 8Fr sheath, the J wire was exchanged for an Amplatz Superstiff wire and the catheter and the 8 Fr sheath was removed. A 14 Fr dilator was advanced over the Superstiff wire to the descending aorta. The
dilator was removed and the 14 Fr Rubio E-sheath was inserted over the wire and into the descending aorta. Heparin 5000 units was given. The MICKEY S3 was prepared on the back table. Orientation was confirmed by both physicians. The AL-1
catheter was re-advanced through the E-sheath to the level of the ascending aorta. The Superstiff wire was removed and a soft tip straight wire was advaned through the AL-1. The straight tip wire was used to cross the aortic valve and the catheter
was advanced into the left ventricle. The straight wire was removed and an Amplatz Extrastiff wire with curved proximal end was advanced through the catheter and into the left ventricle. The wire was seated in the apex and the catheter was
removed. ACT was checked and confirmed to be > 250 seconds.
The valve was advanced over the Extrastiff wire and into the descending aorta. The balloon was withdrawn and the valve was mounted on the balloon. The valve was advanced over the aortic arch and into the aortic valve annulus. The pusher device
was withdrawn to allow for balloon expansion. Low volume aortography confirmed good position of the valve. The valve was deployed during rapid ventricular pacing. Echocardiography and aortography confirmed a good result with no aortic valve
insufficiency and a 4 mmHg mean gradient. The valve deployment system was removed. The Rubio E sheath was then removed and hemostasis obtained with the two perclose sutures. Final angiography demonstrated no evidence of ileofemoral
dissection/perforation and good runoff below the common femoral artery. The pacemaker and the pigtail catheter were removed. The right femoral artery sheath was removed using a 6Fr angioseal. The right femoral venous sheath was removed and manual
pressure was applied. with excellent hemostasis.
Radiation
Dose (mGy): 157.7
DAP (cm2.Gy): 18.0049
Fluoroscopy time (minutes): 6.0
TAVR Echo Gradient (mmHg): 4
LV (s/x, mmHg): 192/22
TAVR Cath Gradient (mmHg): Not obtained.
Conclusions:
1. Successful placement of # 23 Mickey S3 Ultra aortic valve via left transfemoral approach with no acute complications.
Julio Cesar Guzman DO, FACC, FACP
Copy to: Rene Shannon M.D., Micah Frost D.O.
--- NOTE | 2024-01-08 14:29 | W.PN.UPDATE ---
Update Note
Progress Note Update
Reviewed Ms. Chappell with the heart team in the preTAVR SDM meeting and confirmed a 23 mm S3 via Left transfemoral access. Patient will resume aspirin + plavix post TAVR. LVEDP 40 mmHg. #23mmS3 (serial# [id number]) successfully deployed via (L) TF
access. Post implant MG 4mmHg.
--- NOTE | 2024-01-08 17:17 | PTCARENOTE ---
patient arrived to IVU post TAVR. patient is drowsy but able to answer questions. patient has no pain at this time. right fem vein dsg. D/I, right fem. artery was angio sealed and dsg. is D/I, left fem. artery was Perclose and dsg. is D/I, distal
pulses are marked and palpable. patient remains SB , HR 42, VSS. Neuro checks completed as ordered. pneumatics on as ordered. patient is to sleepy to try I/S. pure wick remains in place until pt. is able to get OOB. patient has a WC but she is able
to transfer on legs and stand. daughter and son at bedside. oriented to room and surroundings. family will call for dinner for patient. informed that she cannot get OOB until 1900.
[2024-01-08] MEDS: TRANDATE 100 MG PO (19:48)
[2024-01-08] MEDS: SENOKOT-S 1 TABLET PO (19:48)
[2024-01-08] MEDS: ANCEF 5 IV (19:49)
[2024-01-08] MEDS: TYLENOL 650 MG PO (19:49)
[2024-01-08] MEDS: LIPITOR 40 MG PO (19:49)
[2024-01-08] MEDS: MELATONIN 3 MG PO (22:42)
--- NOTE | 2024-01-08 23:02 | PTCARENOTE ---
Patient assisted to the bathroom to void using rolling walker, purwick discontinued. She sat in chair for about 1 hour, tolerated well. SB, LBBB HR 50's. B/L groin sites are intact. Scant bloody drainage on left groin site. Pedal pulses are
palpable, feet warm to touch. HS care provided, daughter at bedside. Melatonin given for sleep
[2024-01-09 04:41] VITALS: BP 115/47
[2024-01-09 05:17] LABS: Hematocrit 29.2 % (37.0-47.0); Hemoglobin 10.1 g/dL (12.0-16.0); Mean Corp Hgb Conc. 34.6 g/dL (33.0-37.0); Mean Corpuscular Hgb 32.2 pg (27.0-31.0); Mean Platelet Volume 10.4 fL (7.4-10.4); Platelet Count 208 10^3/uL (130-400); Red Blood Cell Count 3.14 10^6/uL (4.20-5.40); Red Cell Dist. Width 13.3 % (11.5-14.5); White Blood Cell Count 8.8 10^3/uL (4.8-10.8)
[2024-01-09 05:29] LABS: Blood Urea Nitrogen 23 mg/dl (7-17); Carbon Dioxide 25 mmol/L (22-30); Chloride 107 mmol/L (98-107); Estimated Creatinine Clearance 31 ml/min; Glucose 92 mg/dl (70-99); Potassium 4.3 mmol/L (3.5-5.1); Sodium 138 mmol/L (135-145); eGFR 54.19
[2024-01-09] MEDS: SYNTHROID 88 MCG PO (05:50)
--- NOTE | 2024-01-09 06:50 | W.PN.CT ---
Addendum entered and electronically signed by Darren George MD 01/09/24 13:25:
I saw and examined the patient.
The PA's note was reviewed and I agree with the note.
Comment:
Echo today
ASA/plavix
D/C home today
Original Note:
Today's Communication / Plan
-
-pod #1
-no issues overnight
-sinus madonna low 50s overnight. No pauses
-chronic LBBB
-Echo today
-current meds (ASA, Plavix, Labetalol 100 bid, Bumex, Lipitor, Amio, Farxiga, Aldactone)
-encourage IS, OOB, ambulate
Assessment / Plan
-
- Severe symptomatic - s/p L TF TAVR w/ placement of 23mm ALFA 3 valve on 01/08/24, pod #1
- Acute on chronic diastolic CHF, LVEDP 22 mmHg
- Post TTE: mean gradient 4mmHg, no AI/PVL. EF 60-65%
- Questionable recent AV endocarditis 09/2023 - txd with Ancef
- CAD - s/p LCX stent 09/2023 - on ASA and Plavix preop
- Mild MS
- COPD
- Chronic LBBB
- Hypothyroidism
- PAF not on OAC- on Amio
- HTN/HLD
Discussed patient care with: Nursing and Care Team
Subjective
-
Date of Service: January 09, 2024
Objective Data
-
PT 15.1 Sec (11.4-14.6) H 01/02/24 10:02
INR 1.20 01/02/24 10:02
APTT 25.3 Sec (23.4-35.0) 01/02/24 10:02
Vital Signs
Vital Signs
Temp Pulse Resp BP Pulse Ox
98.1 F 60 16 136/45 94
01/08/24 22:44 01/08/24 22:45 01/08/24 22:44 01/08/24 22:28 01/08/24 22:44
CT Intake/Output/Weight
01/08/24 01/08/24 01/09/24
06:59 18:59 06:59
Intake Total 240 / 240
Output Total 200 / 900 700 / 900
Balance -200 / -660 -460 / -660
SaO2: 94
Physical Exam
-
General: Awake and AOx3
Cardiovascular: Regular rate & rhythm and Murmur (1/6 syst L mid clavic.)
Respiratory: Clear and Decreased Breath Sounds
Incision: Other (groins are cdi, soft, nontender, no hematoma b/l)
Extremities: No Edema (1+ DP b/l)
Data Reviewed
-
Lab Results: Results Reviewed
Medications: Active Meds Reviewed
Chest X-Ray: Report Reviewed and Image Reviewed
ECG: Report Reviewed and Image Reviewed
--- NOTE | 2024-01-09 07:21 | W.PN.CD ---
Today's Communication / Plan
-
Post procedure echo.
Discharge planning.
Impression / Plan
-
Impression/Plan: 88 y/o female with CAD s/p PCI, HTN, HLD, COPD and possible prior IE and severe admitted after elective TAVR.
#Severe aortic valve stenosis
-S/P #23 Rubio MICKEY S3 Ultra TAVR via left common femoral approach, 01/08/2024.
-Neurologically intact.
-Conduction stable.
-Access sites are C/D/I.
-Antithrombotic therapy with aspirin and clopidogrel given prior PCI.
-Repeat TTE this morning.
-Ambulate.
-Discharge planning.
#CAD
-Chronic, stable.
-S/P prior PCI ([employer] Synergy 2.5 x 24 DOMINICK to OM1), 10/04/2023.
-DAPT with aspirin and clopidogrel.
-Resume high dose, high potency statin.
#HTN
-Chronic, stable.
-Resume home antihypertensives.
#Dispo
-IVU status.
-Discharge planning.
Subjective/Interval History:
No acute events.
No subjective complaints.
DATA:
TAVR, :
Conclusions:
1. Successful placement of # 23 Mickey S3 Ultra aortic valve via left transfemoral approach with no acute complications.
Physical Exam
Vital Signs/Labs
Vital Signs
Temp Pulse Resp BP Pulse Ox
36.4 C 65 16 115/47 97
01/09/24 04:51 01/09/24 06:00 01/09/24 04:51 01/09/24 04:41 01/09/24 04:51
01/07/24 01/08/24 01/09/24
11:59 11:59 11:59
Actual Weight 55.792 kg
01/09/24 04:55
01/09/24 04:55
PT 15.1 Sec (11.4-14.6) H 01/02/24 10:02
INR 1.20 01/02/24 10:02
APTT 25.3 Sec (23.4-35.0) 01/02/24 10:02
01/02/24
10:02
Bvv-J-Cpanfuficwb Pept 2780
Physical Exam
Constitutional: No acute distress and Comfortable
EENT: Anicteric and Moist mucous membranes
Cardiovascular: Rhythm & rate is regular, Pedal edema is absent, JVD pressure is normal, S1S2 is normal and Murmur/rub/gallop absent
Respiratory: Respiratory effort normal, Lungs clear to auscul., Wheeze Absent, Crackles Absent and Rhonchi Absent
GI: Soft, Distention absent, Flat, Non tender and Normal bowel sounds
Neuro/Psych: AO x 3
Other: Cath Site (Bilateral femoral access sites are C/D/I.)
Data Reviewed
-
Date of Service: January 09, 2024
Medical Decision Making: Reviewed Test Results, Independent Historian Assessment and Test Interpretation
EKG: Tracing Personally Visualized and interpreted and Report Reviewed by me
Echo: Tracing Personally Visualized and interpreted and Report Reviewed by me
X-Ray/CT/US/MRI/NUC/PET: Image Personally Visualized and interpreted and Report Reviewed by me
Medical Tests (PFT, Pathology etc): Image Personally Visualized and interpreted and Report Reviewed by me
Labs: Labs Reviewed by me
[2024-01-09 07:26] VITALS: BP 129/49
[2024-01-09 07:29] VITALS: BMI 22.8
--- NOTE | 2024-01-09 08:11 | W.DCSUMMARY ---
Discharge Summary
Discharge Data
Date of Admission: 01/08/24
Date of Discharge: 01/09/24
-
Pending Results: No
Hospital Course
Primary care physician:
Dr. Frost
Outpatient remarketing rep:
Dr. Shannon
Inpatient consultants:
[facility] cardiology
Procedures:
1. Left transfemoral transcatheter aortic valve replacement with a #23 ALFA S3 ultra aortic valve
Primary Diagnosis:
1. Severe aortic stenosis
Secondary Diagnoses:
1. Coronary artery disease s/p stent of the left circumflex in 2023
2. 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
3. Hypertension
4. Hyperlipidemia
5. Hypothyroidism
HPI: 88-year-old female seen in the office by Dr. George presented electively for a transcatheter aortic valve replacement
Hospital course: Patient was electively admitted on 01/07 for a transcatheter aortic valve replacement with Dr. George. There were no intra-op events and patient went to nursery laborer recovery. B/l groins remain stable. She was sent to IVU for the
remainder of their recovery. On 01/08, POD #1, B/L groins remained stable. Repeat TTE showed a mean gradient of 14 and EF 60-65%. She was deemed stable for discharge.
Home medication changes:
See below
Discharge Plan
-
Patient Disposition: Home (Routine Discharge)
Discharge Diagnosis/Procedures: TF TAVR
Condition: Good
Diet: Low Fat, Low Cholesterol and 2 Gram Sodium
Activity: As tolerated
Driving Restrictions: No driving for 1 week
Bathing Restrictions: OK to Shower
Others Tests: 30-day echocardiogram: 02/06/2024 @ 10:20 at the [facility]
Other Services: Cardiac Rehab
Wound Care: No lotions, powders, or creams to puncture sites
Specialty Instructions: Weigh Daily- Call MD for wt gain/loss 3 lbs overnight/5 lbs in 1 week
Referrals:
[facility] [Outside]
Zak Herrera MD [Family Provider] -
Rene Shannon MD [Non-Admitting Privileges] - 02/10/24 3:00 pm (Please note: Appointment will be at [address] [place] [address] [facility] )
Prescriptions:
Continued
atorvastatin 40 mg tablet
40 mg PO QPM
acetaminophen 325 mg Tablet
650 mg PO Q4H PRN (Reason: mild pain/fever>100.4)
polyethylene glycol 3350 [Miralax] 17 gram Powder In Packet
17 g PO DAILY
amiodarone 200 mg Tablet
200 mg PO DAILY
melatonin 3 mg Tablet
3 mg PO QPM
clopidogrel 75 mg Tablet
75 mg PO DAILY
aspirin 81 mg Tablet,Delayed Release (Dr/Ec)
81 mg PO DAILY
spironolactone 25 mg tablet
25 mg PO DAILY
levothyroxine 88 mcg Tablet
88 mcg PO DAILY
bisacodyl [Dulcolax (bisacodyl)] 10 mg Suppository
10 mg NV HSPRN PRN (Reason: Q48H FOR CONSTIPATION)
Fleet Enema 19-7 gram/118 mL Enema
118 ml NV DAILY PRN (Reason: if dulcolax ineffective)
labetalol 100 mg Tablet
100 mg PO Q12H
lactulose 10 gram/15 mL Solution
30 ml PO HSPRN PRN (Reason: constipation)
dapagliflozin propanediol 10 mg tablet
10 mg PO DAILY
bumetanide 1 mg Tablet
1 mg PO DAILY Qty: 30 0RF
sennosides-docusate sodium 8.6-50 mg Tablet
1 tab-cap PO QPM
lidocaine 4 % Cream
1 applic TOPICAL QID PRN (Reason: PAIN)
simethicone 80 mg Tablet,Chewable
80 mg PO BID PRN (Reason: FLATULANCE)
Discharge Orders:
Discharge Patient (As Directed); Ordered 01/09/24
Ordered By: Natalia Vazquez
Care Plan Goals
Care Plan Goals:
Problem: Readiness for enhanced knowledge related to diagnosis and treatment plan
Goal: Understand your diagnosis and treatment plan needs, including medications if applicable.
Instructions: Know your diagnosis, underlying causes and treatment plan options, including medications if applicable. Consult with your health care team to learn about your diagnosis and treatment plan, including medications if applicable.
Discharge Date and Time
Print Language: CROATIAN
--- NOTE | 2024-01-09 08:16 | W.PN.ANS.POP ---
Anesthesia Post Operative
- Anesthesia Post Op Note
Vital Signs Stable-See Nursing Note: Yes
Airway Patent: Yes
Adequate Pain Control: Yes
Change in Mental Status: No
Current Postoperative Nausea & Vomiting: No
Anesthesia Complications: No
General Anesthetic Recall: No
Unplanned Admission: No
Post Op Hydration Adequate: Yes
- -
Pt awake and alert- resting comfortably with no anesthesia related c/o at time of post op visit.
[2024-01-09] MEDS: BUMEX 1 MG PO (08:45)
[2024-01-09] MEDS: MIRALAX 17 GRAMS PO (08:45)
[2024-01-09] MEDS: FARXIGA 10 MG PO (08:45)
[2024-01-09] MEDS: ASPIR LOW (ENTERIC COATED) 81 MG PO (08:45)
[2024-01-09] MEDS: PLAVIX 75 MG PO (08:46)
[2024-01-09] MEDS: PACERONE 200 MG PO (08:46)
[2024-01-09] MEDS: FLUSH (NSS) 1 FLUSH IV (08:46)
[2024-01-09] MEDS: TRANDATE 100 MG PO (08:46)
[2024-01-09] MEDS: ALDACTONE 25 MG PO (08:46)
--- NOTE | 2024-01-09 08:55 | PTCARENOTE ---
The patient stated that she felt 'a berry' in her left chest this morning while sitting in the chair. I asked her to describe what it felt like and she said that 'it's just telling me its here.' She has no complaints of pain or discomfort now. Her BL
groin sites are intact. The left groin sit has old scant drainage. Positive pedal pulse are noted BL. She is in NSR on the monitor with a BBB and a pro QT of 0.44. Her vitals are stable.
[2024-01-09] MEDS: LMX 4 1 APPLIC TOPICAL (11:06)
[2024-01-09 11:30] VITALS: BP 125/47
--- NOTE | 2024-01-09 12:28 | CM ---
Reviewed chart. Met with Mrs. Chappell and her daughter to review discharge plans. She states she is feeling well and maybe able to go home soon. She states she is planning on returning to [facility]. Daughter states they are
paying privately to hold her bed. Telephone call to [facility] Admission to confirm ability to accept back today. [facility] can accept back today. The report phone number is ([phone]) and the fax number is
([phone]). Daughter states she will provide transportation. Medical work-up in progress. The discharge plan is to return to [facility] when medically stable.
[2024-01-09 15:14] VITALS: BP 121/38
--- NOTE | 2024-01-09 15:56 | PTCARENOTE ---
The patient is discharged to [facility]. Her daughter is driving her there. Report called to Ankita at [facility].
== END 2024-01-09 17:06 | disposition home or self-care (01) | DRG 266 ==
LOC: IVU 09:15
PROVIDERS: Physician Assistant Medical; ADMITTING PHYSICIAN Thoracic Surgery (Cardiothoracic Vascular Surgery); CONSULT PHYSICIAN Internal Medicine Cardiovascular Disease; FAMILY PHYSICIAN Family Medicine
PROC: 02RF38Z Replacement of Aortic Valve with Zooplastic Tissue, Percutaneous Approach (ICD-10-PCS; 2024-01-08)
DX: I35.0 Nonrheumatic aortic (valve) stenosis (principal); Z00.6 Encounter for examination for normal comparison and control in clinical research program; I50.33 Acute on chronic diastolic (congestive) heart failure; I44.7 Left bundle-branch block, unspecified; J44.9 Chronic obstructive pulmonary disease, unspecified; I25.10 Atherosclerotic heart disease of native coronary artery without angina pectoris; E03.9 Hypothyroidism, unspecified; E78.5 Hyperlipidemia, unspecified; I48.0 Paroxysmal atrial fibrillation; I11.0 Hypertensive heart disease with heart failure; Z79.82 Long term (current) use of aspirin; Z79.899 Other long term (current) drug therapy
CPT/HCPCS: 93308; 33361; 36415; 71045; 71046; 80048; 80053; 81003; 81015; 82248; 83036; 83880; 85025; 85027; 85347; 85610; 85730; 86850; 86900; 86901; 86920; 87070; 87077; 87086; 87186; 93005; 93306; 93321; 93325; C1760; C1769; C1894; Q9967

== ENCOUNTER → 2024-02-05 10:57 | Outpatient (REF) | payer MEDICARE, SELFPAY ==
[2024-02-05 12:46] LABS: % Basophils 0.9 % (0-2); % Eosinophils 1.6 % (0-6); % Immature Granulocytes 4.2 % (0-0.5); % Lymphocytes 20.4 % (20.5-51.1); % Monocytes 13.3 % (1.7-9.3); % Neutrophils 59.6 % (42.2-75.2); Absolute Basophils 0.1 10^3/uL (0-0.2); Absolute Eosinophils 0.1 10^3/uL (0-0.7); Absolute Immature Granulocytes 0.4 10^3/uL (0-0.05); Absolute Lymphocytes 1.8 10^3/uL (1.2-3.4); Absolute Monocytes 1.2 10^3/uL (0.1-0.6); Absolute Neutrophils 5.4 10^3/uL (1.4-6.5); Hematocrit 25.1 % (37.0-47.0); Hemoglobin 8.1 g/dL (12.0-16.0); Mean Corp Hgb Conc. 32.3 g/dL (33.0-37.0); Mean Corpuscular Hgb 30.5 pg (27.0-31.0); Mean Corpuscular Volume 94.4 fL (81.0-99.0); Mean Platelet Volume 9.7 fL (7.4-10.4); Nucleated Red Blood Cells % 0.2 %; Platelet Count 322 10^3/uL (130-400); Red Blood Cell Count 2.66 10^6/uL (4.20-5.40); Red Cell Dist. Width 13.3 % (11.5-14.5)
[2024-02-05 13:34] LABS: ALT (SGPT) 26 U/L (0-35); AST (SGOT) 35 U/L (14-36); Albumin 3.1 g/dl (3.5-5.0); Alkaline Phosphatase 63 U/L (38-126); Blood Urea Nitrogen 23 mg/dl (7-17); Calcium 8.5 mg/dl (8.4-10.2); Carbon Dioxide 27 mmol/L (22-30); Chloride 100 mmol/L (98-107); Glucose 104 mg/dl (70-99); Potassium 4.4 mmol/L (3.5-5.1); Sodium 133 mmol/L (135-145); Total Bilirubin 0.7 mg/dl (0.2-1.3); Total Protein 5.8 g/dl (6.3-8.2); eGFR > 60.00
[2024-02-05 14:06] LABS: TSH 0.54 uIU/ml (0.47-4.68)
== END ==
LOC: OLABN 10:57
PROVIDERS: ATTENDING PHYSICIAN Student in an Organized Health Care Education/Training Program
DX: R60.0 Localized edema (principal); E03.9 Hypothyroidism, unspecified; I10 Essential (primary) hypertension
CPT/HCPCS: 36415; 80053; 84443; 85025

== ENCOUNTER → 2024-02-23 12:19 | Outpatient (REF) | payer OTHER, MEDICARE, SELFPAY ==
[2024-02-23 13:37] LABS: Hematocrit 28.1 % (37.0-47.0); Mean Corpuscular Hgb 29.3 pg (27.0-31.0); Mean Corpuscular Volume 91.5 fL (81.0-99.0); Mean Platelet Volume 9.9 fL (7.4-10.4); Platelet Count 256 10^3/uL (130-400); Red Blood Cell Count 3.07 10^6/uL (4.20-5.40); Red Cell Dist. Width 14.2 % (11.5-14.5); White Blood Cell Count 7.8 10^3/uL (4.8-10.8)
[2024-02-23 14:48] LABS: ALT (SGPT) 15 U/L (0-35); AST (SGOT) 24 U/L (14-36); Albumin 3.4 g/dl (3.5-5.0); Alkaline Phosphatase 84 U/L (38-126); Direct Bilirubin 0.2 mg/dl (0.0-0.4); Total Bilirubin 0.3 mg/dl (0.2-1.3); Total Protein 5.9 g/dl (6.3-8.2)
[2024-02-23 15:12] LABS: TSH 2.09 uIU/ml (0.47-4.68)
== END ==
LOC: OLABN 12:19
PROVIDERS: ATTENDING PHYSICIAN Student in an Organized Health Care Education/Training Program
DX: Z79.899 Other long term (current) drug therapy (principal); D64.9 Anemia, unspecified
CPT/HCPCS: 80076; 84443; 85027

== ENCOUNTER → 2024-04-06 09:28 | Outpatient (REF) | payer MEDICARE, SELFPAY ==
[2024-04-06 11:59] LABS: HDL Cholesterol 54 mg/dl; LDL Cholesterol, Calculated 68 mg/dl; Total Cholesterol 138 mg/dl (50-199); Triglyceride 83 mg/dl (10-149); Very Low Density Lipoprotein 16 mg/dl (0-30)
== END ==
LOC: OLABN 09:28
PROVIDERS: ATTENDING PHYSICIAN Student in an Organized Health Care Education/Training Program
DX: E78.5 Hyperlipidemia, unspecified (principal)
CPT/HCPCS: 36415; 80061

== ENCOUNTER → 2024-04-22 10:06 | Outpatient (REF) | payer MEDICARE, SELFPAY ==
[2024-04-22 10:55] LABS: Blood Urea Nitrogen 19 mg/dl (7-17); Carbon Dioxide 25 mmol/L (22-30); Chloride 102 mmol/L (98-107); Glucose 117 mg/dl (70-99); Potassium 4.2 mmol/L (3.5-5.1); Sodium 140 mmol/L (135-145); eGFR > 60.00
== END ==
LOC: OLABN 10:06
PROVIDERS: ATTENDING PHYSICIAN Student in an Organized Health Care Education/Training Program
DX: E03.9 Hypothyroidism, unspecified (principal)
CPT/HCPCS: 36415; 80048

== ENCOUNTER → 2024-04-22 13:30 | Outpatient (REF) | payer MEDICARE, SELFPAY | LOC: HWRCS 13:30 | PROVIDERS: ATTENDING PHYSICIAN Internal Medicine Cardiovascular Disease; FAMILY PHYSICIAN Family Medicine | DX: Z95.2 Presence of prosthetic heart valve (principal); I48.0 Paroxysmal atrial fibrillation; I35.0 Nonrheumatic aortic (valve) stenosis; Z95.5 Presence of coronary angioplasty implant and graft | CPT/HCPCS: 93306 ==

== ENCOUNTER → 2024-05-24 11:32 | Outpatient (REF) | payer MEDICARE, SELFPAY ==
[2024-05-24 17:57] LABS: Urine Albumin 1+ (Neg - Trace); Urine Bilirubin Negative (Negative); Urine Character Very Cloudy (Clear); Urine Color Yellow; Urine Glucose 3+ (Negative); Urine Ketone Negative (Negative); Urine Leukocyte 2+ (Negative); Urine Nitrite Negative (Negative); Urine Occult Blood 2+ (Negative); Urine Urobilinogen Negative (Neg - 1+)
[2024-05-24 18:12] LABS: Urine White Cell >100 /HPF (0-5)
== END ==
LOC: OLABN 11:32
PROVIDERS: ATTENDING PHYSICIAN Student in an Organized Health Care Education/Training Program
DX: R30.0 Dysuria (principal)
CPT/HCPCS: 36415; 81003; 81015; 87086

== ENCOUNTER → 2024-06-11 09:30 | Outpatient (REF) | payer MEDICARE, SELFPAY ==
[2024-06-11 12:00] LABS: Urine Albumin 1+ (Neg - Trace); Urine Bilirubin Negative (Negative); Urine Character Very Cloudy (Clear); Urine Color Yellow; Urine Glucose 3+ (Negative); Urine Ketone Negative (Negative); Urine Leukocyte 2+ (Negative); Urine Nitrite Negative (Negative); Urine Occult Blood 1+ (Negative); Urine Specific Gravity 1.015 (<1.030); Urine Urobilinogen Negative (Neg - 1+)
[2024-06-11 12:40] LABS: Urine White Cell >100 /HPF (0-5)
[2024-06-11 12:41] LABS: Urine Bacteria Few (Negative); Urine Yeast Many (Negative)
== END ==
LOC: OLABN 09:30
PROVIDERS: ATTENDING PHYSICIAN Student in an Organized Health Care Education/Training Program
DX: R30.9 Painful micturition, unspecified (principal)
CPT/HCPCS: 81003; 81015; 87077; 87086; 87186

== ENCOUNTER 2024-06-21 08:59 | Inpatient (IN) | payer MEDICARE, SELFPAY ==
[2024-06-19] VITALS (7 sets, daily range): BP systolic 112–159; BP diastolic 47–60; BMI 23.0; BMI 22.0
[2024-06-19 17:07] LABS: % Basophils 0.5 % (0-2); % Immature Granulocytes 0.5 % (0-0.5); % Lymphocytes 10.5 % (20.5-51.1); % Monocytes 8.6 % (1.7-9.3); % Neutrophils 78.9 % (42.2-75.2); Absolute Basophils 0.1 10^3/uL (0-0.2); Absolute Eosinophils 0.2 10^3/uL (0-0.7); Absolute Immature Granulocytes 0.1 10^3/uL (0-0.05); Absolute Lymphocytes 1.6 10^3/uL (1.2-3.4); Absolute Monocytes 1.3 10^3/uL (0.1-0.6); Absolute Neutrophils 12.3 10^3/uL (1.4-6.5); Hematocrit 34.2 % (37.0-47.0); Hemoglobin 11.5 g/dL (12.0-16.0); Mean Corp Hgb Conc. 33.6 g/dL (33.0-37.0); Mean Corpuscular Hgb 29.1 pg (27.0-31.0); Mean Corpuscular Volume 86.6 fL (81.0-99.0); Mean Platelet Volume 10.5 fL (7.4-10.4); Nucleated Red Blood Cells % 0 %; Platelet Count 238 10^3/uL (130-400); Red Blood Cell Count 3.95 10^6/uL (4.20-5.40); Red Cell Dist. Width 16.2 % (11.5-14.5); White Blood Cell Count 15.6 10^3/uL (4.8-10.8)
[2024-06-19 17:19] LABS: ALT (SGPT) 23 U/L (0-35); AST (SGOT) 27 U/L (14-36); Alkaline Phosphatase 72 U/L (38-126); Blood Urea Nitrogen 17 mg/dl (7-17); Calcium 9.4 mg/dl (8.4-10.2); Carbon Dioxide 26 mmol/L (22-30); Chloride 103 mmol/L (98-107); Estimated Creatinine Clearance 30 ml/min; Glucose 136 mg/dl (70-99); Lipase 32 U/L (23-300); Potassium 3.6 mmol/L (3.5-5.1); Sodium 138 mmol/L (135-145); Total Bilirubin 0.4 mg/dl (0.2-1.3); Total Protein 6.9 g/dl (6.3-8.2); eGFR 53.85
--- NOTE | 2024-06-19 17:24 | EDRN ---
Paige FRANCISCO in room w/pt at this time.
--- NOTE | 2024-06-19 18:06 | ED.GENMED ---
History of Present Illness
General
Chief Complaint: Abdominal Symptoms
Source: patient and family (Son at bedside)
Exam Limitations: none
Time Seen by Provider: 06/19/24 17:13
Nursing documentation reviewed up to this point in time: agreed with
History of Present Illness
History of Present Illness:
Patient is an 89-year-old female with history atrial fibrillation, CHF, CAD, hypertension, hyperlipidemia presenting to the emergency department via EMS from [facility] for evaluation of abdominal pain. Patient states that she has been
undergoing treatment for a UTI and experiencing dysuria. She finished the antibiotic last night. Today�patient states she experienced somewhat abdominal pain throughout her entire abdomen.
Patient does state that she has a history of chronic constipation. Today she had multiple large bowel movements throughout the day. Patient states that she has felt nauseous.
Patient denies any fever, chills, vomiting. Patient denies any chest pain or shortness of breath.
At this time�patient states abdominal pain has somewhat improved. Although she still is experiencing dysuria.
Patient states that she has had 4 UTIs since arriving to [facility] a few months ago.
Past History
Past History
ED Past Medical History: Arrthythmia, CHF, HTN, Hypercholesterolemia and Valvular disease
ED Past Surgical History: None
Social History
Tobacco: Non-smoker
Alcohol: None
Personal:
Living: with family
Review of Systems
Review of Systems
Allergies reviewed?: Yes
All Other Systems: ROS reviewed and negative except as documented in HPI and ROS
Phy Exam
Physical Exam
Physical Exam:
Vitals: Patient's vital signs are stable. Afebrile
General: Patient is well appearing, no acute distress. Nontoxic-appearing
Skin: Warm and dry, no rashes or lesions
Head: Normocephalic, atraumatic
Eyes: Sclera nonicteric. EOMs intact. No nystagmus.
Throat: Protecting airway
Neck: Normal ROM, no cervical spine tenderness, no meningismus
Cardiac: Regular rate. Irregular rhythm., no murmurs.
Pulm: Normal respiratory effort, no wheezes, rales, rhonchi heard on exam.
Abdomen: Abdomen soft. Moderate diffuse abdominal tenderness without rebound tenderness or guarding. No CVA tenderness.
Extremities: No evidence of cyanosis or edema. Palpable DP pulses.
Neuro: Grossly intact.
Psychiatric: Normal affect.
Course
Orders/Labs/Results
Orders:
Orders
06/19/24 Dinner
Cholesterol Lowering
At Your Request: Full Participation
Cholesterol Lowering: Sodium, 2 Gram
06/19/24 16:54
Cardiac Monitoring- Treatment ONCE
06/19/24 16:58
Complete Blood Count/With Diff Urgent
Comprehensive Metabolic Panel Urgent
Lipase Urgent
06/19/24 17:51
Lidocaine 2% [Lidocaine Uro-Jet 2%] 1 syringe .ROUTE .K-MED ONE
06/19/24 18:03
Urinalysis Reflex To Culture Urgent
Date Specimen was Collected: 06/19/24
Time Specimen was Collected: 18:01
Urine Microscopic Reflex Cult Urgent
Urine Culture Urgent
MELISSA Source: U
Specimen Description:
Date Specimen was Collected: 06/19/24
Time Specimen was Collected: 18:01
06/19/24 18:04
CT Abd/Pel (IV only)-DH only Urgent
Comment: recent UTI
Reason For Exam: Diffuse abdominal pain, nausea
06/19/24 18:05
0.9% Sodium Chloride 500 ml [Nss] 500 ml IV BOLUS
06/19/24 19:17
CefTRIAXone [Rocephin] 1,000 mg IV NOW STA
06/19/24 19:29
Acetaminophen [Tylenol] 650 mg PO Q4HPRN PRN
Bisacodyl [Dulcolax] 10 mg RECTAL [id number] PRN
Mag Hydrox/Al Hydrox/Simeth [Maalox] 5 ml PO BIDPRN PRN
Magnesium Hydroxide [Milk of Magnesia] 30 ml PO HSPRN PRN
06/19/24 19:31
Admit/Transfer Patient As Directed
Co-Sign Provider:
Level of Care: Observation services
Assign to:: Medical/Surgical
Physician / Group: hospitalist
Diagnosis: acute cystitis
PRN Pain Medication Management As Directed
May give lesser potent ordered pain med per pt: Yes
preference::
Protocol:: Medication orders for pain may be administered in a
manner that supports deferring to patient preference
when the pt is:
- Requesting an ordered lesser potent pain medication.
Least to most potent pain medications are defined
as: acetaminophen < NSAID < tramadol < opioids
(morphine, oxycodone, hydromorphone).
- Requesting a lesser dose of the same medication IF
ORDERED.
- Requesting a less intrusive route of administration
if both routes are prescribed by the provider (PO <
IV).
06/19/24 19:32
Code Status As Directed
Resuscitation Status: Full Code
06/19/24 20:00
Docusate W/Senna [Senokot-S] 1 tablet PO BID
Flush (0.9% Sodium Chloride) [Flush (Nss)] See Dose Instructions IV PER PROTOCOL
Labetalol [Trandate] 100 mg PO Q12H
06/19/24 20:36
Heparin 5,000 units SC Q12
Ondansetron Injectable [Zofran] 4 mg IV Q6HPRN PRN
06/19/24 20:36
Activity As Directed
Activity Level: With Assistance
Vital Signs As Directed
Frequency: Per unit guidelines
DX Deep Vein Thrombosis Video Routine
06/20/24 06:00
Basic Metabolic Panel IN AM
Complete Blood Count/No Diff IN AM
Phenazopyridine HCl [Pyridium] 100 mg PO TIDPRN PRN
06/20/24 08:00
Amiodarone [Pacerone] 200 mg PO DAILY
Aspirin Low Dose EC [Aspir Low (Enteric Coated)] 81 mg PO DAILY
Bumetanide [Bumex] 1 mg PO DAILY
Clopidogrel Bisulfate [Plavix] 75 mg PO DAILY
Dapagliflozin [Farxiga] 10 mg PO DAILY
Levothyroxine [Synthroid] 88 mcg PO DAILY@0600
Polyethylene Glycol Powder [Miralax] 17 grams PO DAILY
Spironolactone [Aldactone] 25 mg PO DAILY
06/20/24 12:00
CefTRIAXone [Rocephin] 1,000 mg IV Q24H
06/20/24 18:00
Atorvastatin [Lipitor] 40 mg PO QPM
Psyllium [Metamucil, Konsyl] 1 packet PO QPM
Abnormal Lab Results
06/19/24 06/19/24
16:58 18:03
WBC 15.6 H 10^3/uL
(4.8-10.8)
RBC 3.95 L 10^6/uL
(4.20-5.40)
Hgb 11.5 L g/dL
(12.0-16.0)
Hct 34.2 L %
(37.0-47.0)
RDW 16.2 H %
(11.5-14.5)
MPV 10.5 H fL
(7.4-10.4)
Abs Immat Gran (auto) 0.1 H 10^3/uL
(0-0.05)
Absolute Neuts (auto) 12.3 H 10^3/uL
(1.4-6.5)
Absolute Monos (auto) 1.3 H 10^3/uL
(0.1-0.6)
Neutrophils % 78.9 H %
(42.2-75.2)
Lymphocytes % 10.5 L %
(20.5-51.1)
Glucose 136 H mg/dl
(70-99)
Ur Occult Blood Reflex 1+ A
(Negative)
Leukocyte Esterase Rfl 2+ A
(Negative)
Urine RBC 3-6 A /HPF
(0-2)
Urine WBC (Reflex) >100 A /HPF
(0-5)
Urine Glucose 3+ A
(Negative)
06/19/24 16:58
06/19/24 16:58
Vital Signs
Initial and Last Documented VS:
Initial Vital Signs
Pulse Resp
60 16
06/19/24 16:35 06/19/24 16:35
Last Documented Vital Signs
Temp Pulse Resp BP Pulse Ox
98.8 F 68 16 159/57 99
06/19/24 20:00 06/19/24 21:13 06/19/24 20:00 06/19/24 21:13 06/19/24 20:00
MDM/Problems Addressed
Differential Diagnosis Includes:
Not limited to: UTI, pyelonephritis, urosepsis, constipation, bowel obstruction, diverticulitis, etc.
MDM/Problems Addressed:
89-year-old female with history as documented presenting with acute lower abdominal pain and persistent dysuria, recently treated for UTI. No fevers or vomiting. Mild nausea. Patient did have many large bowel movements today. Recently finished
course of Ceftin for UTI. Vital stable. Patient is afebrile. Physical exam as above. Abdomen soft with diffuse abdominal tenderness. No rebound tenderness or guarding. Heart regular rate and rhythm. Lungs clear bilaterally. Patient is
perfusing well. Basic labs initiated in triage show a leukocytosis of 15.6. Otherwise no clinically significant abnormalities. Given recent UTI with significant abdominal pain�will check CT abdomen/pelvis. Will obtain urinalysis. Concern for
possible persistent UTI versus pyelonephritis versus other intra-abdominal infection.
Urine shows signs of infection including > 100 WBC, 2+ leukocyte esterase, and few RBC. CT report shows urinary bladder wall thickening/stranding suspicious for cystitis. No other acute findings. Given persistent UTI not responding to outpatient
antibiotic and leukocytosis along with patient age�will admit for IV antibiotics. Did review recent urine culture which appears to be pansensitive. Will give patient IV Rocephin. Repeat urine culture will be sent. Patient admitted to hospitalist
service in stable condition. Case discussed with attending physician.
Chronic conditions affecting care:
Aortic stenosis, atrial fibrillation, CHF, CAD, hypertension, frequent UTI
Acute Exacerbation and/or Progression of Chronic Illness:
Acutely hypertensive
*Radiology
Radiology exam reviewed: preliminary read by ED provider and radiology read reviewed
*Pulse Oximetry
Patient hypoxic: no
*EKG
Interpreted by ED Provider?: NA
*Molder Feeder Interpretation
Rate: Molder Feeder- N/A
*Critical Care Note
Total Time (30-74mins, 75-104mins- exclusive of procedures): Not Applicable
Data Reviewed
Source: [facility] (Called and spoke with [facility] nurse group supervisor yard-patient recently finished course of Ceftin for UTI)
Patient Management
Discussion with other providers: Hospitalist
Escalation/DeEscalation of care consider admission/obs:
Admit for IV antibiotics
ED Attending Note
-
Portions of this chart may have been created with voice recognition software.� Occasional wrong word or��sound alike� substitutions may have occurred due to the inherent limitations of voice recognition software.
Discharge Plan
Departure
Patient Disposition: Admit
Date of Disposition: 06/19/24
Time of Disposition: 19:18
Presentation/result/management discussed w/ accepting MD/DO: Hospitalist
Discharge Problem:
Acute UTI
Interventions
Interventions:
*Risk Screen - Suicide Last Done: 06/19/24 16:37
*General Assessment Last Done: 06/19/24 16:37
*Neglect/Abuse Screening Last Done: 06/19/24 16:37
ED- Fall Risk Assessment Last Done: 06/19/24 16:37
*ED COVID-19 Vaccine History Last Done: 06/19/24 16:37
*Nursing Disposition Last Done: 06/19/24 20:20
ZC-Prqsve-Mhxcasgegq Assessment Last Done: 06/19/24 18:00
Discharge Date and Time
Discharge Date/Time: 06/19/24 20:20
[2024-06-19 18:11] LABS: Urine Albumin Trace (Neg - Trace); Urine Bilirubin Negative (Negative); Urine Character Very Cloudy (Clear); Urine Color Straw; Urine Glucose 3+ (Negative); Urine Ketone Negative (Negative); Urine Leukocyte 2+ (Negative); Urine Nitrite Negative (Negative); Urine Occult Blood 1+ (Negative); Urine Urobilinogen Negative (Neg - 1+)
[2024-06-19 18:19] LABS: Urine White Cell >100 /HPF (0-5)
[2024-06-19] MEDS: NSS 500 IV (18:59)
[2024-06-19] MEDS: ROCEPHIN 1000 MG IV (19:22)
[2024-06-19] MEDS: TYLENOL 650 MG PO (19:38)
--- NOTE | 2024-06-19 19:56 | HPS.HSE ---
Family Physician
-
Family Physician: Zak Herrera
Chief Complaint
-
Abdominal pain and dysuria
History of Present Illness
This is an 89-year-old female with past medical history of aortic stenosis complicated by endocarditis status post longstanding antibiotics and recent status post TAVR, paroxysmal atrial fibrillation, CAD status post recent stent dysuria on dual
antiplatelet therapy, resistant hypertension and recurrent urinary tract infections presents to the emergency department with ongoing dysuria, abdominal discomfort and back pain.
Patient was diagnosed with a urinary tract infection with a UA at least obtained around June 11. She recently completed 5 days of Ceftin. Patient presents to the ED today because she continues to have sharp pain with urination, abdominal pain
and some back pain. She continues to have urinary frequency and some incontinence. Is unclear whether she has been having a fever but she reports that she has chills. She also reports nausea but no vomiting. Patient denies any diarrhea. She
denies gross hematuria. She denies any recurrent urinary catheterization. She denies history of kidney stones.
In the emergency department she was afebrile, blood pressure was stable at 123/47. White count was 15,000 with normal hemoglobin and platelet count. Electrolytes BUN/creatinine as well as LFTs were within normal limits. UA with therapy
significant pyuria and some hematuria. She had a CT of the abdomen pelvis which shows significant bladder cystitis, no obstruction or stones. No other acute intra-abdominal process.
Medical History
Past Medical History
Past Medical History: Reports Arrhythmia (Proximal atrial fibrillation) and HTN
Additional Past Medical History:
Aortic stenosis
Aortic valve endocarditis
Status post TAVR
Past Surgical History: Reports Other
Additional Past Surgical History:
Status post TAVR
Social History
Tobacco: Non-smoker
Alcohol: None
Drug: None
Personal:
Living: [facility]
Employment: Retired
Family History
Family History: Not pertinent
Allergies / Home Medications
Allergies reflects when Allergies were last updated in [employer].
Home Medications with original date entered in [employer]
Allergy/Medication List:
Allergies
Allergy/AdvReac Type Severity Reaction Status Date / Time
enalapril Allergy PER [facility] Verified 06/19/24 16:36
RECORD
hydralazine Allergy PER NH Verified 06/19/24 16:36
RECORD
levofloxacin Allergy PER [facility] Verified 06/19/24 16:36
RECORD
omeprazole Allergy PER NH Verified 06/19/24 16:36
RECORD
Sulfa (Sulfonamide Allergy PER NH Verified 06/19/24 16:36
Antibiotics) RECORD
sulfamethoxazole Allergy Unknown Verified 06/19/24 16:36
trimethoprim Allergy Unknown Verified 06/19/24 16:36
hydroxyethyl starch in [facility] record Uncoded 06/19/24 16:36
Home Medications
acetaminophen 325 mg tablet 650 mg PO Q4HPRN PRN mild pain/fever>100.4 11/21/23
amiodarone 200 mg tablet 200 mg PO DAILY Heart Disease/Condition 11/21/23
aspirin 81 mg tablet,delayed release 81 mg PO DAILY Blood Clot Prevention/Tx 11/21/23
atorvastatin 40 mg tablet 40 mg PO QPM High Cholesterol 11/21/23
bisacodyl 10 mg rectal suppository (Dulcolax (bisacodyl)) 10 mg GA [id number] PRN IF NO BM AFTR MOM 11/21/23
clopidogrel 75 mg tablet 75 mg PO DAILY Blood Clot Prevention/Tx 11/21/23
dapagliflozin propanediol 10 mg tablet 10 mg PO DAILY Heart Disease/Condition 11/21/23
labetalol 100 mg tablet 100 mg PO Q12H Blood Pressure 11/21/23
levothyroxine 88 mcg tablet 88 mcg PO DAILY Thyroid 11/21/23
polyethylene glycol 3350 17 gram oral powder packet (Miralax) 17 g PO DAILY Constipation 11/21/23
sodium phosphates 19 gram-7 gram/118 mL enema (Fleet Enema) 118 ml GA DAILYPRN PRN if dulcolax ineffective 11/21/23
spironolactone 25 mg tablet 25 mg PO DAILY Fluid Retention/Swelling 11/21/23
bumetanide 1 mg tablet 1 mg PO DAILY #30 tabs 11/26/23
sennosides 8.6 mg-docusate sodium 50 mg tablet 2 tab-cap PO BID Constipation 01/01/24
aluminum-mag hydroxide-simethicone 200 mg-200 mg-20 mg/5 mL oral susp 5 ml PO BIDPRN PRN NAUSEA 06/19/24
magnesium hydroxide 400 mg/5 mL oral suspension (Milk of Magnesia) 2,400 mg PO HSPRN PRN CONSTIATION 06/19/24
psyllium 1 packet PO QPM 06/19/24
therapeutic multivitamin 1 tab PO DAILY 06/19/24
Review of Systems
-
History Source: Patient and Family
Constitutional: Reports Chills
EENT: Reports No Symptoms
Respiratory: Reports No Symptoms
Cardiac: Reports No Symptoms
Abdomen/GI: Reports Abdominal Pain and Nausea
: Reports Dysuria, Frequency and Urgency
Musculoskeletal: Reports No Symptoms
Skin: Reports No Symptoms
Neurological: Reports No Symptoms
Endocrine: Reports No Symptoms
Hematologic/Lymphatic: Reports No Symptoms
Psych: Reports No Symptoms
Physical Exam
Vital Signs
Vital Signs
Temp Pulse Resp BP Pulse Ox
98.6 F 70 13 152/53 100
06/19/24 16:37 06/19/24 19:15 06/19/24 19:15 06/19/24 19:00 06/19/24 19:15
Physical Exam
General: Conversant and Appears Chronically Ill
HEENT: NormoCephalic, Anicteric, Moist mucous membranes and Atraumatic
Respiratory: Clear
Cardiac: S1/S2 and Regular Rhythm
Breast: Deferred by me
GI: Soft, Non Tender, Non Distended and Normal Bowel Sounds
Rectal: Deferred by Provider
Genito-urinary: No costovertebral tender
Musculoskeletal: No Clubbing, No Cyanosis and No Edema
Skin: Warm and Dry
Neuro: AO x 3
Hematologic/Lymphatic: No Lymphadenopathy
Psych: Calm
Laboratory Results
-
06/19/24 16:58
06/19/24 16:58
Laboratory Results
Total Bilirubin 0.4 mg/dl (0.2-1.3) 06/19/24 16:58
AST 27 U/L (14-36) 06/19/24 16:58
ALT 23 U/L (0-35) 06/19/24 16:58
Alkaline Phosphatase 72 U/L (38-126) 06/19/24 16:58
Lipase 32 U/L (23-300) 06/19/24 16:58
Data Reviewed
-
CT Scan: Report Reviewed by me
Lab Data: Labs Reviewed by me
Old Records: Reviewed
Impression/Plan
-
IMPRESSION:
89-year-old female who has had a significantly complicated hospital course this year with recurrent flash pulmonary edema, critical aortic stenosis complicated by aortic valve endocarditis status post antibiotics and now status post cardiac cath
with stent to LAD, status post TAVR coming from [facility] with ongoing cystitis despite finishing a 5 day course of Ceftin. She is hemodynamically stable and afebrile. She still has significant leukocytosis. Labs otherwise unremarkable. CT
scan shows acute cystitis without obstruction or kidney stones.
PLAN:
1. Cystitis - Recurrence or incomplete duration of treatment of her cystitis based on appropriate antibiotics based on cultures from 06/11 or prior seems to have ongoing symptoms and pyuria.
- admit to med/surg obs
- urine cultures sent
- iv ceftriaxone ok for now based on all prior cultures, longer course of treatment
- pyridium 100mg prn urinary symptoms
2. CAD and s/p TAVR - LV ejection fraction is 60-65%, no signs of CHF on examination.
- continue DAPT and statin
- continue GDMT bumetanide, spironalactone and farxiga
- BP control with labetolol
3. pAFIB - on amio, no AC per prior notes but unable to tell me
- continue DAPT and amio 200mg daily
- no AC
4. Hypothyroid
continue levothyroxine
DVT PPX - heparin SQ
Code Status - DNR
[2024-06-19] MEDS: Pyridium 100 MG PO (20:07)
[2024-06-19] MEDS: SENOKOT-S PO (21:13)
[2024-06-19] MEDS: TRANDATE 100 MG PO (21:13)
[2024-06-19] MEDS: HEPARIN 5000 UNITS SC (21:31)
--- NOTE | 2024-06-19 22:50 | PTCARENOTE ---
Pt. arrived to unit from ED via stretcher. Pt. pulled over from stretcher to bed in 317-1 on . Pt. AAOx3 and able to make needs known. Oriented to unit. Call espinoza within reach. Plan of care ongoing.
[2024-06-20] MEDS: TYLENOL 650 MG PO ×2 (04:17→20:25)
[2024-06-20 06:25] LABS: Hematocrit 31.8 % (37.0-47.0); Hemoglobin 10.4 g/dL (12.0-16.0); Mean Corp Hgb Conc. 32.7 g/dL (33.0-37.0); Mean Corpuscular Hgb 29.2 pg (27.0-31.0); Mean Corpuscular Volume 89.3 fL (81.0-99.0); Mean Platelet Volume 10.3 fL (7.4-10.4); Platelet Count 219 10^3/uL (130-400); Red Blood Cell Count 3.56 10^6/uL (4.20-5.40); Red Cell Dist. Width 16.4 % (11.5-14.5); White Blood Cell Count 14.5 10^3/uL (4.8-10.8)
[2024-06-20 06:49] LABS: Blood Urea Nitrogen 16 mg/dl (7-17); Calcium 8.8 mg/dl (8.4-10.2); Carbon Dioxide 25 mmol/L (22-30); Chloride 105 mmol/L (98-107); Estimated Creatinine Clearance 29 ml/min; Glucose 107 mg/dl (70-99); Potassium 3.6 mmol/L (3.5-5.1); Sodium 138 mmol/L (135-145); eGFR 53.85
[2024-06-20 07:00] VITALS: BP 103/80
[2024-06-20] MEDS: HEPARIN 5000 UNITS SC ×2 (08:06→20:19)
[2024-06-20] MEDS: MIRALAX 17 GRAMS PO (08:06)
[2024-06-20] MEDS: FARXIGA 10 MG PO (08:07)
[2024-06-20] MEDS: PLAVIX 75 MG PO (08:08)
[2024-06-20] MEDS: ALDACTONE PO (08:08)
[2024-06-20] MEDS: SYNTHROID 88 MCG PO (08:09)
[2024-06-20] MEDS: PACERONE 200 MG PO (08:09)
[2024-06-20] MEDS: TRANDATE PO (08:10)
[2024-06-20] MEDS: ASPIR LOW (ENTERIC COATED) 81 MG PO (08:10)
[2024-06-20] MEDS: SENOKOT-S 1 TABLET PO ×2 (08:10→20:19)
[2024-06-20] MEDS: BUMEX PO (08:10)
[2024-06-20] MEDS: Pyridium 100 MG PO ×2 (09:07→17:02)
--- NOTE | 2024-06-20 10:04 | W.PN.HOSP.TC ---
Addendum entered and electronically signed by Justin Arango MD 06/20/24 11:43:
Updated daughter over the phone in details.
Original Note:
Today's Communication/Plan
-
IV abx
Bowel regimen
monitor diet tolerance
oob/pt
Assessment / Plan
Assessment / Plan
IMPRESSION:
89-year-old female who has had a significantly complicated hospital course this year with recurrent flash pulmonary edema, critical aortic stenosis complicated by aortic valve endocarditis status post antibiotics and now status post cardiac cath
with stent to LAD, status post TAVR coming from [facility] with ongoing cystitis despite finishing a 5 day course of Ceftin. She is hemodynamically stable and afebrile. She still has significant leukocytosis. Labs otherwise unremarkable. CT
scan shows acute cystitis without obstruction or kidney stones.
PLAN:
Cystitis - Recurrence or incomplete duration of treatment of her cystitis based on appropriate antibiotics based on cultures from 06/11 or prior seems to have ongoing symptoms and pyuria.
- urine cultures sent
- iv ceftriaxone ok for now based on all prior cultures, longer course of treatment
- pyridium 100mg prn urinary symptoms
Abdomen pain likely 2/2 constipation
-CAT scan was performed in ER without oral contrast, Per my interpretation patient has increasing amount of stool burden
-Cont with aggressive bowel regimen
-Pt states of chronic hx of constipation
-tolerating diet
CAD and s/p TAVR - LV ejection fraction is 60-65%, no signs of CHF on examination.
- continue DAPT and statin
- continue GDMT bumetanide, spironalactone and farxiga
- Hold labetalol. BP soft.
pAFIB - on amio, no AC per prior notes but unable to tell me
- continue DAPT and amio 200mg daily
- not on AC
Hypothyroid
continue levothyroxine
DVT PPX - heparin SQ
Code Status - DNR
Anticipated Discharge: > 48 hours
Subjective/Interval History
-
Date of Service: June 20, 2024
states of abd pain at [place] which has now resolved
continues to have formed bm
states improvement in dysuria
Objective Data
-
Labs:
Laboratory Results
06/20/24
06:03
WBC 14.5 H
Hgb 10.4 L
Hct 31.8 L
Plt Count 219
Sodium 138
Potassium 3.6
Chloride 105
Carbon Dioxide 25
BUN 16
Creatinine 1.0
Glucose 107 H
Calcium 8.8
Vital Signs:
Vital Signs
Temp Pulse Resp BP Pulse Ox
99.5 F 68 14 103/80 96
06/20/24 07:00 06/20/24 08:10 06/20/24 07:00 06/20/24 08:10 06/20/24 07:00
I&O
06/19/24 06/20/24 06/21/24
06:59 06:59 06:59
Intake Total 480 / 480
Output Total 200 / 200
Balance -200 / -200 480 / 480
Physical Exam
-
General: Well Developed, Well Nourished, Comfortable, Conversant and Appears Chronically Ill
HEENT: Normocephalic, Atraumatic, Moist Mucous Membranes, Nose Appears Normal and Ears Appear Normal; Negative Oxygen
Respiratory: Clear to Auscultation and Non Labored Respirations; Negative Accessory Resp Muscle Use
Cardiac: Regular Rhythm, S1/S2 and Murmur
GI: Soft, Nontender, Nondistended and Normal Bowel Sounds
Rectal: Deferred by Provider
Musculoskeletal: No Clubbing and No Cyanosis
Skin: Warm and Dry
Neuro: Awake, Alert and No Motor Deficits
Data Reviewed
-
Total Time Spent with Patient (in minutes): 52
[2024-06-20 12:15] VITALS: BP 142/69; PULSE 63; O2SAT 96
[2024-06-20] MEDS: STERILE WATER FOR INJECTION 10 ML IV (12:20)
[2024-06-20] MEDS: DULCOLAX 10 MG RECTAL (12:21)
[2024-06-20] MEDS: ROCEPHIN 1000 MG IV (12:21)
[2024-06-20 14:39] VITALS: BP 131/51
--- NOTE | 2024-06-20 14:58 | CM ---
Initial assessment was completed with pt at bedside.
Pt is from [facility] where she initially went for short term stay and has remained in facility.
Pt is mostly wheelchair level and receives aide with her ADLs. Pt does use walker during PT and with aide.
Pt is OBS and BE was signed. Message was also left for daughter.
PLAN; Return to [facility]
[2024-06-20] MEDS: LIPITOR 40 MG PO (17:02)
[2024-06-20] MEDS: METAMUCIL, KONSYL 1 PACKET PO (17:02)
[2024-06-20 23:00] VITALS: BP 132/54
[2024-06-21] MEDS: Pyridium 100 MG PO ×3 (03:34→19:01)
[2024-06-21] MEDS: SYNTHROID 88 MCG PO (05:41)
[2024-06-21 06:00] VITALS: BMI 22.1
[2024-06-21 07:25] VITALS: BP 119/47
[2024-06-21 07:41] LABS: % Basophils 0.8 % (0-2); % Eosinophils 2.7 % (0-6); % Immature Granulocytes 0.5 % (0-0.5); % Lymphocytes 21.3 % (20.5-51.1); % Monocytes 13.7 % (1.7-9.3); Absolute Basophils 0.1 10^3/uL (0-0.2); Absolute Eosinophils 0.3 10^3/uL (0-0.7); Absolute Immature Granulocytes 0.1 10^3/uL (0-0.05); Absolute Monocytes 1.3 10^3/uL (0.1-0.6); Absolute Neutrophils 5.8 10^3/uL (1.4-6.5); Hematocrit 32.6 % (37.0-47.0); Hemoglobin 10.4 g/dL (12.0-16.0); Mean Corp Hgb Conc. 31.9 g/dL (33.0-37.0); Mean Corpuscular Hgb 28.8 pg (27.0-31.0); Mean Corpuscular Volume 90.3 fL (81.0-99.0); Mean Platelet Volume 10.6 fL (7.4-10.4); Nucleated Red Blood Cells % 0 %; Platelet Count 217 10^3/uL (130-400); Red Blood Cell Count 3.61 10^6/uL (4.20-5.40); Red Cell Dist. Width 16.4 % (11.5-14.5); White Blood Cell Count 9.5 10^3/uL (4.8-10.8)
[2024-06-21 08:24] LABS: Blood Urea Nitrogen 13 mg/dl (7-17); Calcium 8.8 mg/dl (8.4-10.2); Carbon Dioxide 24 mmol/L (22-30); Chloride 103 mmol/L (98-107); Estimated Creatinine Clearance 32 ml/min; Glucose 80 mg/dl (70-99); Potassium 3.9 mmol/L (3.5-5.1); Sodium 139 mmol/L (135-145); eGFR > 60.00
[2024-06-21 09:07] VITALS: BP 141/55; PULSE 57; O2SAT 95
[2024-06-21] MEDS: ALDACTONE 25 MG PO (09:13)
[2024-06-21] MEDS: HEPARIN 5000 UNITS SC ×2 (09:14→19:49)
[2024-06-21] MEDS: ASPIR LOW (ENTERIC COATED) 81 MG PO (09:14)
[2024-06-21] MEDS: BUMEX 1 MG PO (09:14)
[2024-06-21] MEDS: SENOKOT-S 1 TABLET PO ×2 (09:15→19:49)
[2024-06-21] MEDS: FARXIGA 10 MG PO (09:15)
[2024-06-21] MEDS: PACERONE 200 MG PO (09:15)
[2024-06-21] MEDS: MIRALAX 17 GRAMS PO (09:15)
[2024-06-21] MEDS: PLAVIX 75 MG PO (09:16)
--- NOTE | 2024-06-21 09:58 | CM ---
Placed a call to Harrison in admissions at [facility] to check on bed hold status however had to leave a voice mail message. Requested call back with update.
Plan: Case management will continue to follow and assist with discharge planning. Back to [facility] when cleared. Will confirm bed hold status.
[2024-06-21] MEDS: TYLENOL 650 MG PO ×2 (11:03→19:01)
[2024-06-21] MEDS: STERILE WATER FOR INJECTION 10 ML IV (11:03)
[2024-06-21] MEDS: ROCEPHIN 1000 MG IV (11:03)
--- NOTE | 2024-06-21 13:24 | W.PN.HOSP.TC ---
Today's Communication/Plan
-
Continue IV ceftriaxone for UTI
Start mag citrate and as needed Fleet enema for constipation
Monitor abdominal pain clinically
Continue with phenazopyridine
Assessment / Plan
Assessment / Plan
#Cystitis
#H/O Recurrent UTI
-Recurrence or incomplete duration of treatment of her cystitis based on appropriate antibiotics based on cultures from 06/11 or prior seems to have ongoing symptoms and pyuria.
-May have a degree of vesicoureteral reflux, or other underlying anatomic/physiologic abnormality
-IV ceftriaxone ok for now based on all prior cultures, longer course of treatment
-Symptomatically does seem improved since starting antibiotics, no fevers or leukocytosis
-Will plan for 10-day course of antibiotics, transition to ciprofloxacin for oral agent
-Azo 100mg prn urinary symptoms
-Will provide urology follow-up at discharge
#Abdomen pain likely 2/2 constipation
-CT scan was performed in ER without oral contrast is showing increased stool burden
-Cont with aggressive bowel regimen, added mag citrate today with as needed enema
-Pt states of chronic hx of constipation
-tolerating diet
-No signs of acute abdomen
#CAD s/p PCI
# s/p TAVR
#Chronic HFpEF
-GDMT for HFpEF includes beta-amelia, SGLT2i, MRA, DAPT and statin
-Home medications also include Bumex 1 mg daily
-Holding labetalol as blood pressure was soft on arrival
-Remains euvolemic, normotensive
#Paroxysmal AF
-Not currently on anticoagulation, patient does not know why, may have fall risk/bleeding history
-Home medications do include am beta-amelia; labetalol held for soft BP
-HR stable at this time
#Hypothyroid
-Unclear etiology, remains on home levothyroxine regimen
DVT PPhx: heparin SQ
Diet: Cholesterol lowering
Code Status: DNR
Anticipated Discharge: 24 - 48 hours
Subjective/Interval History
-
Date of Service: June 21, 2024
Seen and examined at bedside. No acute events reported overnight. AFVSS this morning.
She still has some intermittent abdominal pain, though improved from admission. Does not have bowel movement while here per her history
Denies chest pain, dyspnea, fevers or chills, nausea or vomiting, abnormal bleeding or bruising, paresthesia or weakness.
Objective Data
-
Labs:
Laboratory Results
06/21/24
06:02
WBC 9.5
Hgb 10.4 L
Hct 32.6 L
Plt Count 217
Sodium 139
Potassium 3.9
Chloride 103
Carbon Dioxide 24
BUN 13
Creatinine 0.9
Glucose 80
Calcium 8.8
Vital Signs:
Vital Signs
Temp Pulse Resp BP Pulse Ox
98.5 F 55 17 119/47 97
06/21/24 07:25 06/21/24 09:13 06/21/24 07:25 06/21/24 09:13 06/21/24 07:25
I&O
06/20/24 06/21/24 06/22/24
06:59 06:59 06:59
Intake Total 2160 / 2160
Output Total 200 / 200
Balance -200 / -200 2160 / 2160
Review of Systems
-
History Source: Patient
All other systems: Reviewed and negative
Physical Exam
-
General: Well Nourished, No Apparent Distress and Comfortable
HEENT: Normocephalic, Atraumatic and Moist Mucous Membranes
Respiratory: Clear to Auscultation and Non Labored Respirations
Cardiac: Regular Rhythm, S1/S2 and Murmur (STACEY); Negative Rub or Gallop
GI: Soft, Nontender, Normal Bowel Sounds, Distended (Mild distention) and No Hepatosplenomegaly
Musculoskeletal: No Clubbing, No Cyanosis and No Edema
Skin: Warm, Dry and Normal Turgor; Negative Rash
Neuro: AO x 3, Nonfocal/Grossly Intact and Central Nerve's Intact
Psych: Calm
Data Reviewed
-
Labs: Labs Reviewed by me and Discussed with Patient
[2024-06-21] MEDS: CITROMA 300 ML PO (14:09)
[2024-06-21 15:41] VITALS: BP 135/61
[2024-06-21] MEDS: METAMUCIL, KONSYL 1 PACKET PO (17:34)
[2024-06-21] MEDS: LIPITOR 40 MG PO (17:34)
[2024-06-21 23:00] VITALS: BP 132/53
[2024-06-22] MEDS: Pyridium 100 MG PO ×3 (04:12→17:05)
[2024-06-22] MEDS: TYLENOL 650 MG PO ×4 (04:12→17:05)
[2024-06-22] MEDS: SYNTHROID 88 MCG PO (05:39)
[2024-06-22 06:00] VITALS: BMI 21.7
[2024-06-22 07:00] VITALS: BP 169/69
[2024-06-22 07:02] LABS: % Basophils 0.9 % (0-2); % Eosinophils 3.3 % (0-6); % Immature Granulocytes 0.5 % (0-0.5); % Lymphocytes 23.7 % (20.5-51.1); % Monocytes 13.8 % (1.7-9.3); % Neutrophils 57.8 % (42.2-75.2); Absolute Basophils 0.1 10^3/uL (0-0.2); Absolute Eosinophils 0.3 10^3/uL (0-0.7); Absolute Lymphocytes 1.9 10^3/uL (1.2-3.4); Absolute Monocytes 1.1 10^3/uL (0.1-0.6); Absolute Neutrophils 4.7 10^3/uL (1.4-6.5); Hemoglobin 10.8 g/dL (12.0-16.0); Mean Corp Hgb Conc. 31.8 g/dL (33.0-37.0); Mean Corpuscular Hgb 28.2 pg (27.0-31.0); Mean Corpuscular Volume 88.8 fL (81.0-99.0); Mean Platelet Volume 10.1 fL (7.4-10.4); Nucleated Red Blood Cells % 0 %; Platelet Count 224 10^3/uL (130-400); Red Blood Cell Count 3.83 10^6/uL (4.20-5.40); White Blood Cell Count 8.1 10^3/uL (4.8-10.8)
[2024-06-22 07:46] LABS: Blood Urea Nitrogen 17 mg/dl (7-17); Calcium 9.1 mg/dl (8.4-10.2); Carbon Dioxide 25 mmol/L (22-30); Chloride 103 mmol/L (98-107); Estimated Creatinine Clearance 29 ml/min; Glucose 95 mg/dl (70-99); Potassium 4.1 mmol/L (3.5-5.1); Sodium 138 mmol/L (135-145); eGFR 53.85
[2024-06-22] MEDS: MIRALAX 17 GRAMS PO (08:22)
[2024-06-22] MEDS: BUMEX 1 MG PO (08:22)
[2024-06-22] MEDS: PACERONE 200 MG PO (08:22)
[2024-06-22] MEDS: PLAVIX 75 MG PO (08:22)
[2024-06-22] MEDS: ASPIR LOW (ENTERIC COATED) 81 MG PO (08:23)
[2024-06-22] MEDS: HEPARIN 5000 UNITS SC ×2 (08:23→21:05)
[2024-06-22] MEDS: ALDACTONE 25 MG PO (08:23)
[2024-06-22] MEDS: SENOKOT-S 1 TABLET PO ×2 (08:23→21:04)
[2024-06-22] MEDS: FARXIGA 10 MG PO (08:23)
--- NOTE | 2024-06-22 10:02 | W.PN.HOSP.TC ---
Today's Communication/Plan
-
Transition to cefdinir to complete 10 days of antibiotics
Continue bowel regimen
Discharge
Assessment / Plan
Assessment / Plan
#Cystitis
#H/O Recurrent UTI
-Recurrence or incomplete duration of treatment of her cystitis based on appropriate antibiotics based on cultures from 06/11 or prior seems to have ongoing symptoms and pyuria.
-May have a degree of vesicoureteral reflux, or other underlying anatomic/physiologic abnormality
-IV ceftriaxone ok for now based on all prior cultures, longer course of treatment
-Symptomatically does seem improved since starting antibiotics, no fevers or leukocytosis
-Will plan for 10-day course of antibiotics, transition to cefdinir at discharge
-Azo 100mg prn urinary symptoms
-Will provide urology follow-up at discharge
#Abdomen pain likely 2/2 constipation
-CT scan was performed in ER without oral contrast is showing increased stool burden
-Cont with aggressive bowel regimen, added mag citrate today with as needed enema
-Pt states of chronic hx of constipation
-tolerating diet
-No signs of acute abdomen, had bowel movements yesterday with symptoms now improved
#CAD s/p PCI
# s/p TAVR
#Chronic HFpEF
-GDMT for HFpEF includes beta-amelia, SGLT2i, MRA, DAPT and statin
-Home medications also include Bumex 1 mg daily
-Holding labetalol as blood pressure was soft on arrival
-Remains euvolemic, normotensive
#Paroxysmal AF
-Not currently on anticoagulation, patient does not know why, may have fall risk/bleeding history
-Home medications do include am beta-amelia; labetalol held for soft BP
-HR stable at this time
#Hypothyroid
-Unclear etiology, remains on home levothyroxine regimen
DVT PPhx: heparin SQ
Diet: Cholesterol lowering
Code Status: DNR
Anticipated Discharge: Today
Subjective/Interval History
-
Date of Service: June 22, 2024
Seen and examined at bedside. No acute events reported overnight. AFVSS this morning.
She reports that she had 2 bowel movements since yesterday
Denies any acute complaints including chest pain, dyspnea, fevers or chills, GI issues, urinary issues, bleeding or bruising, paresthesias or weakness
Objective Data
-
Labs:
Laboratory Results
06/22/24
06:49
WBC 8.1
Hgb 10.8 L
Hct 34.0 L
Plt Count 224
Sodium 138
Potassium 4.1
Chloride 103
Carbon Dioxide 25
BUN 17
Creatinine 1.0
Glucose 95
Calcium 9.1
Vital Signs:
Vital Signs
Temp Pulse Resp BP Pulse Ox
97.9 F 59 18 169/69 96
06/22/24 07:00 06/22/24 08:22 06/22/24 07:00 06/22/24 08:22 06/22/24 07:00
I&O
06/21/24 06/22/24 06/23/24
06:59 06:59 06:59
Intake Total 2160 / 2160 720 / 720
Balance 2160 / 2160 720 / 720
Review of Systems
-
History Source: Patient
All other systems: Reviewed and negative
Physical Exam
-
General: No Apparent Distress and Comfortable
HEENT: Normocephalic, Atraumatic and Moist Mucous Membranes
Respiratory: Clear to Auscultation and Non Labored Respirations
Cardiac: Regular Rhythm, S1/S2 and Murmur; Negative Rub or Gallop
GI: Soft, Nontender, Nondistended and Normal Bowel Sounds
Musculoskeletal: No Clubbing, No Cyanosis and No Edema
Skin: Warm and Dry; Negative Rash
Neuro: Nonfocal/Grossly Intact and Central Nerve's Intact
Psych: Calm
--- NOTE | 2024-06-22 10:14 | W.DCSUMMARY ---
Discharge Summary
Discharge Data
Date of Admission: 06/21/24
Date of Discharge: 06/22/24
-
Pending Results: No
Hospital Course
89-year-old female with CAD s/p PCI, paroxysmal AF not on AC, hypertension, s/p TAVR, hypothyroidism, HFpEF, recurrent UTIs, presented to the hospital with abdomen pain and concerns for recurrent UTI. Was started on IV antibiotics with ceftriaxone
while in the hospital. Recently treated for urinary tract infection, culture at that time showed sensitivity to ceftriaxone. Repeat cultures taken with no growth. Suspected component of constipation contributing to her abdominal pain. Was
started on aggressive bowel regimen with improved abdomen pain following bowel movements. Was transition to oral cefdinir to complete 10-day course of antibiotics. Should continue aggressive bowel regimen at discharge. Should have follow-up with
urologist at discharge as well, referral provided.
Discharge Plan
-
Patient Disposition: Retirement/SNF
Discharge Diagnosis/Procedures: Recurrent urinary tract infection
Constipation
Condition: Good
Diet: No added salt
Activity: As tolerated
Driving Restrictions: Not until seen by your Dr
Bathing Restrictions: None
Blood Work: None
Others Tests: None
Other Services: PT and OT
Specialty Instructions: Weigh Daily- Call MD for wt gain/loss 3 lbs overnight/5 lbs in 1 week
Activity Restrictions/Additional Instructions:
Schedule follow-up appointment with family doctor within 1 to 2 weeks of discharge from hospital for routine posthospital visit
Referrals:
Zak Herrera MD [Family Provider] -
Additional Discharge Medication Instructions: Continue cefdinir 300 mg every 12 hours for 9 days after discharge to complete 10 days
Continue with phenazopyridine 3 times daily as needed for symptoms of dysuria
Continue with bowel regimen as previously prescribed, with Fleet enema as needed
Prescriptions:
New
phenazopyridine 100 mg Tablet
100 mg PO TIDPRN PRN (Reason: dysuria) 10 Days Qty: 30 0RF
cefdinir 300 mg capsule
300 mg PO Q12H 10 Days Qty: 20 0RF
Continued
atorvastatin 40 mg tablet
40 mg PO QPM
acetaminophen 325 mg Tablet
650 mg PO Q4HPRN PRN (Reason: mild pain/fever>100.4)
polyethylene glycol 3350 [Miralax] 17 gram Powder In Packet
17 g PO DAILY
amiodarone 200 mg Tablet
200 mg PO DAILY
clopidogrel 75 mg Tablet
75 mg PO DAILY
aspirin 81 mg Tablet,Delayed Release (Dr/Ec)
81 mg PO DAILY
spironolactone 25 mg tablet
25 mg PO DAILY
levothyroxine 88 mcg Tablet
88 mcg PO DAILY
bisacodyl [Dulcolax (bisacodyl)] 10 mg Suppository
10 mg VA T36LONV PRN (Reason: IF NO BM AFTR MOM)
Fleet Enema 19-7 gram/118 mL Enema
118 ml VA DAILYPRN PRN (Reason: if dulcolax ineffective)
labetalol 100 mg Tablet
100 mg PO Q12H
dapagliflozin propanediol 10 mg tablet
10 mg PO DAILY
bumetanide 1 mg Tablet
1 mg PO DAILY Qty: 30 0RF
sennosides-docusate sodium 8.6-50 mg Tablet
2 tab-cap PO BID
psyllium Packet
1 packet PO QPM
therapeutic multivitamin Tablet
1 tab PO DAILY
magnesium hydroxide [Milk of Magnesia] 400 mg/5 mL Suspension
2,400 mg PO HSPRN PRN (Reason: constipation )
alum-mag hydroxide-simeth 200-200-20 mg/5 mL Suspension
5 ml PO BIDPRN PRN (Reason: NAUSEA)
Discharge Orders:
Discharge Patient (As Directed); Ordered 06/22/24
Ordered By: Julio Cesar Paris
Discharge Date and Time
Print Language: SAMMARINESE
--- NOTE | 2024-06-22 12:01 | PTCARENOTE ---
Pt c/o 9/10 pain throughout vagina and increased anxiety. Daughter at bedside. MD made aware, new orders provided, see MAR. Will continue to monitor.
[2024-06-22] MEDS: STERILE WATER FOR INJECTION 10 ML IV (12:03)
[2024-06-22] MEDS: ATIVAN 0.5 MG PO (12:03)
[2024-06-22] MEDS: ROCEPHIN 1000 MG IV (12:03)
[2024-06-22 15:00] VITALS: BP 153/80
--- NOTE | 2024-06-22 16:09 | CM ---
Addendum entered by TY Payne 06/22/24 17:02:
Patient's daughter stated that she is unable to transport patient and requested an ambulance. Patient's daughter stated that she would privately pay if not covered by insurance. Per daughter patient has back pain upon being transported in w/c van.
Patient Alert and Oriented x3 however does have episodes of confusion, forgetfulness per RN.
Original Note:
Reviewed chart, received notification from RN that patient is medically cleared for discharge. Placed a call to [facility] in admissions at [facility] who stated that patient can come back under her MA as she has no skilled needs. # For report
[phone] .
Spoke with patient whose daughter was at bedside. She is agreeable to discharge. Patient's daughter had some medical questions. Spoke with RN who stated that she would be in to address any concerns.
Plan: Case management will continue to follow and assist with discharge planing. Back to [facility].
[2024-06-22] MEDS: LIPITOR 40 MG PO (17:05)
[2024-06-22] MEDS: METAMUCIL, KONSYL 1 PACKET PO (17:05)
[2024-06-22 21:03] VITALS: BP 124/54
== END 2024-06-22 21:47 | DRG 690 ==
LOC: 3 WEST ACU 08:59
PROVIDERS: Emergency Medicine; Hospitalist; Physician Assistant; ADMITTING PHYSICIAN Internal Medicine; ATTENDING PHYSICIAN Internal Medicine; EMERGENCY PHYSICIAN Emergency Medicine; FAMILY PHYSICIAN Family Medicine
DX: N30.01 Acute cystitis with hematuria (principal); I50.32 Chronic diastolic (congestive) heart failure; I25.10 Atherosclerotic heart disease of native coronary artery without angina pectoris; I11.0 Hypertensive heart disease with heart failure; Z87.898 Personal history of other specified conditions; R11.0 Nausea; Z87.440 Personal history of urinary (tract) infections; I48.0 Paroxysmal atrial fibrillation; Z79.82 Long term (current) use of aspirin; Z79.01 Long term (current) use of anticoagulants; E03.9 Hypothyroidism, unspecified; Z79.890 Hormone replacement therapy; E78.00 Pure hypercholesterolemia, unspecified; Z66 Do not resuscitate; Z95.5 Presence of coronary angioplasty implant and graft; K59.00 Constipation, unspecified; Z95.3 Presence of xenogenic heart valve
CPT/HCPCS: 51701; 74177; 80048; 80053; 81003; 81015; 83690; 85025; 85027; 87070; 87086; 96361; 96374; 97162; 97166; 99285; Q9967

== ENCOUNTER 2024-07-24 14:02 | Emergency (ER) | payer MEDICARE, SELFPAY ==
--- NOTE | 2024-07-24 14:10 | ED.GENMED ---
History of Present Illness
<Erika Servin PA-C - Last Filed: 07/24/24 22:01>
General
Chief Complaint: Abdominal Pain
Source: patient
Exam Limitations: none
Time Seen by Provider: 07/24/24 14:06
Nursing documentation reviewed up to this point in time: agreed with
History of Present Illness
History of Present Illness:
89-year-old female with past medical history of A-fib, dementia, recurrent UTIs, hypertension, CAD, hypothyroidism presents emergency department today with complaints of constipation abdominal pain. Patient reports that this been going on and off
for the past few months but states is gotten worse recently. She comes from [facility] and the nurses there have stated that she has had 5 formed stools between today and yesterday. They also note that she has been giving an enema, Dulcolax,
MiraLAX, fiber, hydration yet patient states that she is constipated despite this. She was sent here today because well she appears to have formed stools, she states that she has had 10 out of 10 abdominal pain. She has an appointment scheduled
with Dr. Dunlap in a few months for evaluation of this problem. She denies any bleeding from her rectum, denies any vaginal pain, denies any burning with urination but does note that her urine has been cloudy and foul-smelling. She denies any
chest pain or shortness of breath. She denies any fevers or chills. She has had a in the past but otherwise she denies any history of abdominal surgeries. She does not have any diarrhea.
Past History
<Erika Servin PA-C - Last Filed: 07/24/24 22:01>
Past History
ED Past Medical History: Arrthythmia, CHF, HTN, Hypercholesterolemia and Valvular disease
ED Past Surgical History: None
Social History
Tobacco: Non-smoker
Alcohol: None
Personal:
Living: with family
Review of Systems
<Erika Servin PA-C - Last Filed: 07/24/24 22:01>
Review of Systems
All Other Systems: ROS reviewed and negative except as documented in HPI and ROS
Phy Exam
<Erika Servin PA-C - Last Filed: 07/24/24 22:01>
Physical Exam
Physical Exam:
General: Patient is well appearing and in no acute distress; non-toxic
Skin: Warm and dry, no rashes or lesions
Head: Normocephalic, atraumatic
Eyes: Sclera non-icteric. EOMs intact. PERRLA.
Cardiac: Regular rate and rhythm, no murmurs
Peripheral Vascular: No lower extremity swelling or edema
Pulm: Normal respiratory effort, no wheezes, rales, or rhonchi
Abdomen: LLQ abdominal tenderness noted with guarding, no distension, no palpable abdominal masses
Neuro: CN II-XII intact, no focal neurologic deficits.
Psychiatric: Appropriate mood and affect.
Course
<Erika Servin PA-C - Last Filed: 07/24/24 22:01>
Orders/Labs/Results
Orders:
Orders
07/24/24 14:50
CT Abd/pelvis W Iv Cont Urgent
Comment:
Reason For Exam: LLQ abdominal pain
07/24/24 15:05
Calcium Urgent
Complete Blood Count/With Diff Urgent
Comprehensive Metabolic Panel Urgent
Lipase Urgent
TSH Reflex To Free T4 Urgent
07/24/24 17:07
Urinalysis Reflex To Culture Urgent
Date Specimen was Collected: 07/24/24
Time Specimen was Collected: 17:06
Urine Microscopic Reflex Cult Urgent
Urine Culture Urgent
MELISSA Source: U
Specimen Description:
Date Specimen was Collected: 07/24/24
Time Specimen was Collected: 17:06
07/24/24 18:23
Cephalexin Monohydrate [Keflex] 500 mg PO NOW STA
07/24/24 18:54
Docusate Sodium [Colace] 100 mg .ROUTE .STK-MED ONE
07/24/24 18:55
Docusate Sodium [Colace] 100 mg PO NOW STA
Abnormal Lab Results
07/24/24 07/24/24
15:05 17:07
RBC 3.92 L 10^6/uL
(4.20-5.40)
Hgb 11.7 L g/dL
(12.0-16.0)
Hct 36.4 L %
(37.0-47.0)
MCHC 32.1 L g/dL
(33.0-37.0)
RDW 15.4 H %
(11.5-14.5)
Abs Immat Gran (auto) 0.1 H 10^3/uL
(0-0.05)
Absolute Neuts (auto) 7.0 H 10^3/uL
(1.4-6.5)
Absolute Monos (auto) 1.1 H 10^3/uL
(0.1-0.6)
Lymphocytes % 20.3 L %
(20.5-51.1)
Monocytes % 10.2 H %
(1.7-9.3)
BUN 24 H mg/dl
(7-17)
Creatinine 1.1 H mg/dL
(0.6-1.0)
Glucose 111 H mg/dl
(70-99)
Ur Occult Blood Reflex 4+ A
(Negative)
Leukocyte Esterase Rfl 2+ A
(Negative)
Urine RBC 26-30 A /HPF
(0-2)
Urine WBC (Reflex) 60-70 A /HPF
(0-5)
Urine Bacteria (Reflex) Few A
(Negative)
Urine Glucose 1+ A
(Negative)
Urine Albumin (Reflex) 1+ A
(Neg - Trace)
07/24/24 15:05
07/24/24 15:05
Vital Signs
Initial and Last Documented VS:
Initial Vital Signs
Temp Pulse Resp BP Pulse Ox
98.5 F 55 20 137/54 98
07/24/24 14:17 07/24/24 14:17 07/24/24 14:17 07/24/24 14:17 07/24/24 14:17
Last Documented Vital Signs
Temp Pulse Resp BP Pulse Ox
98.5 F 55 20 109/57 96
07/24/24 14:17 07/24/24 14:17 07/24/24 14:17 07/24/24 17:03 07/24/24 17:15
<Cristine Florence MD - Last Filed: 07/24/24 15:03>
Orders/Labs/Results
Orders:
Orders
07/24/24 14:50
CT Abd/pelvis W Iv Cont Urgent
Comment:
Reason For Exam: LLQ abdominal pain
07/24/24 15:05
Calcium Urgent
Complete Blood Count/With Diff Urgent
Comprehensive Metabolic Panel Urgent
Lipase Urgent
TSH Reflex To Free T4 Urgent
07/24/24 17:07
Urinalysis Reflex To Culture Urgent
Date Specimen was Collected: 07/24/24
Time Specimen was Collected: 17:06
Urine Microscopic Reflex Cult Urgent
Urine Culture Urgent
MELISSA Source: U
Specimen Description:
Date Specimen was Collected: 07/24/24
Time Specimen was Collected: 17:06
07/24/24 18:23
Cephalexin Monohydrate [Keflex] 500 mg PO NOW STA
07/24/24 18:54
Docusate Sodium [Colace] 100 mg .ROUTE .STK-MED ONE
07/24/24 18:55
Docusate Sodium [Colace] 100 mg PO NOW STA
Abnormal Lab Results
07/24/24 07/24/24
15:05 17:07
RBC 3.92 L 10^6/uL
(4.20-5.40)
Hgb 11.7 L g/dL
(12.0-16.0)
Hct 36.4 L %
(37.0-47.0)
MCHC 32.1 L g/dL
(33.0-37.0)
RDW 15.4 H %
(11.5-14.5)
Abs Immat Gran (auto) 0.1 H 10^3/uL
(0-0.05)
Absolute Neuts (auto) 7.0 H 10^3/uL
(1.4-6.5)
Absolute Monos (auto) 1.1 H 10^3/uL
(0.1-0.6)
Lymphocytes % 20.3 L %
(20.5-51.1)
Monocytes % 10.2 H %
(1.7-9.3)
BUN 24 H mg/dl
(7-17)
Creatinine 1.1 H mg/dL
(0.6-1.0)
Glucose 111 H mg/dl
(70-99)
Ur Occult Blood Reflex 4+ A
(Negative)
Leukocyte Esterase Rfl 2+ A
(Negative)
Urine RBC 26-30 A /HPF
(0-2)
Urine WBC (Reflex) 60-70 A /HPF
(0-5)
Urine Bacteria (Reflex) Few A
(Negative)
Urine Glucose 1+ A
(Negative)
Urine Albumin (Reflex) 1+ A
(Neg - Trace)
07/24/24 15:05
07/24/24 15:05
Vital Signs
Initial and Last Documented VS:
Initial Vital Signs
Temp Pulse Resp BP Pulse Ox
98.5 F 55 20 137/54 98
07/24/24 14:17 07/24/24 14:17 07/24/24 14:17 07/24/24 14:17 07/24/24 14:17
Last Documented Vital Signs
Temp Pulse Resp BP Pulse Ox
98.5 F 55 20 109/57 96
07/24/24 14:17 07/24/24 14:17 07/24/24 14:17 07/24/24 17:03 07/24/24 17:15
Fabylt;Erika Servin PA-C - Last Filed: 07/24/24 22:01>
MDM/Problems Addressed
Differential Diagnosis Includes:
see below
MDM/Problems Addressed:
NUMBER AND COMPLEXITY OF PROBLEMS ADDRESSED AT THE ENCOUNTER
� Chronic conditions affecting care: A-fib, coronary artery disease, diabetes, hypothyroid
� Acute Exacerbation and/or Progression of Chronic Illness: +/- recurrent UTIs
� Differential Diagnosis includes: Constipation, urinary tract infection, bowel obstruction
AMOUNT AND/OR COMPLEXITY OF DATA TO BE REVIEWED AND ANALYZED
� I performed an independent evaluation of and my interpretation is:
Laboratory Studies: urinalysis concerning for infection
Other:
� Review of other/old records: Reviewed discharge summary from 06/22/2024, patient seen for UTI, originally presented for abdominal pain was started on IV antibiotics and then eventually discharged on cefdinir
� Clinical information was obtained by an independent historian: Did review written report from riley ribera from records, did attempt to call facility however no one picked up
� Prescriptions/Medications Considered but not given:
� Further testing considered but not performed: n/a
RISK OF COMPLICATIONS AND/OR MORBIDITY OR MORTALITY OF PATIENT MANAGEMENT
� Social determinants of health affecting care: memory issues/dementia
� Discussion with other providers: ER attending
� Escalation of care including admission/observation vs risk of discharge considered:
89-year-old female presents emergency department today with concerns of constipation and abdominal pain for the past few months on and off. She also complains of cloudy urine and foul-smelling urine Staff reports that she has had multiple bowel
movements a formed stool yesterday. On exam, she does have left lower quadrant tenderness and suprapubic tenderness as well. Will send off for urine and send off to CAT scan for further evaluation. She does have a GI follow-up appointment
scheduled in a few months. Will reassess.
On reassessment, patient notes no worsening of her symptoms and is well appearing. Her urinalysis is concerning for infection and her CT does show bladder wall thickening and ureteral dilation with no evidence for obstructing calculus. Will
prescribe antibiotic to cover for cystitis, suspect this is the cause of patient's pain as well as a moderate degree of constipation. Advised patient to take MiraLAX daily and Colace daily for the next week or so, and instructed urology follow-up
for patient's evidence of obstruction on CT scan. I did speak with son he states that he will arrange this, he states that he thinks that patient does have a follow-up appointment with urology scheduled soon. Patient stable for discharge.
<Erika Servin PA-C - Last Filed: 07/24/24 22:01>
*Critical Care Note
Total Time (30-74mins, 75-104mins- exclusive of procedures): Not Applicable
<Erika Servin PA-C - Last Filed: 07/24/24 22:01>
Update Note
Update Note:
I was alerted by nursing that patient had an episode of gross hematuria while here in the emergency department. CT scan of the abdomen pelvis and urinalysis pending
ED Attending Note
<Erika Servin PA-C - Last Filed: 07/24/24 22:01>
-
Portions of this chart may have been created with voice recognition software.� Occasional wrong word or��sound alike� substitutions may have occurred due to the inherent limitations of voice recognition software.
<Cristine Florence MD - Last Filed: 07/24/24 15:03>
ED Attending Note
Patient seen and examined by attending physician: Yes
I performed the substantive portion of visit, reviewed & personally made and approve the management plan that is documented in note by myself or PAM.: Yes
ED Attending Note:
I have seen and evaluated the patient with a [id number] encounter. I have spoken to the [PA] and involved in the medical history, the physical exam, medical decision making.
Evaluation and management service: agree unless noted differently below.
Results interpretation: agree unless noted differently below.
89-year-old woman presenting to the emergency department with abdominal pain. Patient states that she has been having constipation. However per her [facility] patient has had 5 bowel movements yesterday. She is on a bowel regimen. Patient is
not in agreement and states that they live that she has not had a bowel movement. She denies any fevers chills. No nausea or vomiting. She has been having suprapubic abdominal pain. She does note that her urine has been more cloudy. No back
pain. During my evaluation patient does have suprapubic abdominal tenderness. She is intermittently confused on exam. She does have moist oral mucosa. Vitals are notable for being afebrile. Likely constipation versus metabolic derangement or
even UTI. Will check blood work CT scan and urinalysis. Anticipate discharge back to facility.
Discharge Plan
Departure
Patient Disposition: Home (Routine Discharge)
Date of Disposition: 07/24/24
Time of Disposition: 18:29
Patient with high blood pressure during this ER visit?: Yes
Condition: Good
Discharge Problem:
Acute cystitis, Abdominal pain
Instructions: Urinary tract infections in adults, Abdominal Pain, BLOOD PRESSURE
Prescriptions:
New
cephalexin 500 mg capsule
500 mg PO BID 7 Days Qty: 14 0RF
No Action
atorvastatin 40 mg tablet
40 mg PO QPM
acetaminophen 325 mg Tablet
650 mg PO Q4HPRN PRN (Reason: mild pain/fever>100.4)
polyethylene glycol 3350 [Miralax] 17 gram Powder In Packet
17 g PO DAILY
amiodarone 200 mg Tablet
200 mg PO DAILY
clopidogrel 75 mg Tablet
75 mg PO DAILY
aspirin 81 mg Tablet,Delayed Release (Dr/Ec)
81 mg PO DAILY
spironolactone 25 mg tablet
25 mg PO DAILY
levothyroxine 88 mcg Tablet
88 mcg PO DAILY
bisacodyl [Dulcolax (bisacodyl)] 10 mg Suppository
10 mg LA [id number] PRN (Reason: IF NO BM AFTR MOM)
Fleet Enema 19-7 gram/118 mL Enema
118 ml LA DAILYPRN PRN (Reason: if dulcolax ineffective)
labetalol 100 mg Tablet
100 mg PO Q12H
dapagliflozin propanediol 10 mg tablet
10 mg PO DAILY
bumetanide 1 mg Tablet
1 mg PO DAILY Qty: 30 0RF
sennosides-docusate sodium 8.6-50 mg Tablet
2 tab-cap PO BID
psyllium Packet
1 packet PO QPM
therapeutic multivitamin Tablet
1 tab PO DAILY
magnesium hydroxide [Milk of Magnesia] 400 mg/5 mL Suspension
2,400 mg PO HSPRN PRN (Reason: constipation )
alum-mag hydroxide-simeth 200-200-20 mg/5 mL Suspension
5 ml PO BIDPRN PRN (Reason: NAUSEA)
phenazopyridine 100 mg Tablet
100 mg PO TIDPRN PRN (Reason: dysuria) 10 Days Qty: 30 0RF
cefdinir 300 mg capsule
300 mg PO Q12H 10 Days Qty: 20 0RF
Referrals:
Zak Herrera MD [Family Provider] -
Ian Worrell MD [Active] - Call in 1-3 days for appt
Activity Restrictions/Additional Instructions:
As discussed:
Your rectal exam did not show any evidence of bleeding, hemorrhoids, or fecal impaction.
Please take Colace once daily for 7 days. Please take one heaping tablespoon of Miralax dissolved in a beverage once daily for 2 weeks. Please see gastroenterology as scheduled in September.
Your urinalysis and CT scan are concerning for a UTI. Please start taking an antibiotic called Keflex. This has been sent to your pharmacy. Please take 1 tablet twice daily for 7 days.
Please schedule an appointment to see urology for further evaluation of bladder wall thickening, please call the attached number to schedule an appointment with Dr. Worrell's office (please refer to CT scan report).
PLEASE RETURN EMERGENCY DEPARTMENT SHOULD YOU EXPERIENCE FEVERS OR CHILLS, ACUTE WORSENING OF YOUR PAIN, CHEST PAIN, SHORTNESS OF BREATH, HEADACHE, LIGHTHEADEDNESS, FLANK PAIN, OR ANY OTHER SIGNS OR SYMPTOMS WORRISOME TO YOU.
Please get a follow-up appointment with your primary care provider.
Interventions
Interventions:
*Risk Screen - Suicide Last Done: 07/24/24 14:17
*General Assessment Last Done: 07/24/24 14:17
*Neglect/Abuse Screening Last Done: 07/24/24 14:17
*Nursing Disposition Last Done: 07/24/24 19:28
BI-Jxgytk-Dydiljowfh Assessment Last Done: 07/24/24 15:09
Discharge Date and Time
Discharge Date/Time: 07/24/24 19:29
Print Language: CHINESE
[2024-07-24 14:17] VITALS: BP 137/54
[2024-07-24 15:11] LABS: % Basophils 0.8 % (0-2); % Eosinophils 1.5 % (0-6); % Immature Granulocytes 0.5 % (0-0.5); % Lymphocytes 20.3 % (20.5-51.1); % Monocytes 10.2 % (1.7-9.3); % Neutrophils 66.7 % (42.2-75.2); Absolute Basophils 0.1 10^3/uL (0-0.2); Absolute Eosinophils 0.2 10^3/uL (0-0.7); Absolute Immature Granulocytes 0.1 10^3/uL (0-0.05); Absolute Lymphocytes 2.1 10^3/uL (1.2-3.4); Absolute Monocytes 1.1 10^3/uL (0.1-0.6); Hematocrit 36.4 % (37.0-47.0); Hemoglobin 11.7 g/dL (12.0-16.0); Mean Corp Hgb Conc. 32.1 g/dL (33.0-37.0); Mean Corpuscular Hgb 29.8 pg (27.0-31.0); Mean Corpuscular Volume 92.9 fL (81.0-99.0); Mean Platelet Volume 9.4 fL (7.4-10.4); Nucleated Red Blood Cells % 0 %; Platelet Count 288 10^3/uL (130-400); Red Blood Cell Count 3.92 10^6/uL (4.20-5.40); Red Cell Dist. Width 15.4 % (11.5-14.5); White Blood Cell Count 10.5 10^3/uL (4.8-10.8)
[2024-07-24 15:25] LABS: ALT (SGPT) 20 U/L (0-35); AST (SGOT) 25 U/L (14-36); Albumin 3.9 g/dl (3.5-5.0); Alkaline Phosphatase 73 U/L (38-126); Blood Urea Nitrogen 24 mg/dl (7-17); Calcium 8.9 mg/dl (8.4-10.2); Carbon Dioxide 28 mmol/L (22-30); Chloride 100 mmol/L (98-107); Glucose 111 mg/dl (70-99); Lipase 34 U/L (23-300); Potassium 3.7 mmol/L (3.5-5.1); Sodium 137 mmol/L (135-145); Total Bilirubin 0.2 mg/dl (0.2-1.3); Total Protein 6.9 g/dl (6.3-8.2); eGFR 48.03
[2024-07-24 15:27] LABS: Calcium 9.1 mg/dl (8.4-10.2)
[2024-07-24 15:56] LABS: TSH Reflex To Free T4 1.15 uIU/ml (0.47-4.68)
[2024-07-24 16:00] VITALS: BP 114/48
[2024-07-24 17:03] VITALS: BP 109/57
[2024-07-24 17:14] LABS: Urine Albumin 1+ (Neg - Trace); Urine Bilirubin Negative (Negative); Urine Character Very Cloudy (Clear); Urine Glucose 1+ (Negative); Urine Ketone Negative (Negative); Urine Leukocyte 2+ (Negative); Urine Nitrite Negative (Negative); Urine Occult Blood 4+ (Negative); Urine Urobilinogen Negative (Neg - 1+); Urine pH 6.5 (5.0-9.0)
[2024-07-24 17:15] LABS: Urine Color Pink
[2024-07-24 17:24] LABS: Urine Bacteria Few (Negative); Urine Squamous Cell 0-2 /LPF (Few); Urine White Cell 60-70 /HPF (0-5)
[2024-07-24 17:25] LABS: Urine Red Blood Cell 26-30 /HPF (0-2)
[2024-07-24] MEDS: KEFLEX 500 MG PO (18:53)
[2024-07-24] MEDS: COLACE 100 MG PO (18:55)
== END 2024-07-24 19:29 | disposition home or self-care (01) ==
LOC: EMR 14:02
PROVIDERS: Physician Assistant; EMERGENCY PHYSICIAN Student in an Organized Health Care Education/Training Program; FAMILY PHYSICIAN Family Medicine
DX: N30.01 Acute cystitis with hematuria (principal); R10.9 Unspecified abdominal pain; K59.00 Constipation, unspecified; I48.91 Unspecified atrial fibrillation; F03.90 Unspecified dementia, unspecified severity, without behavioral disturbance, psychotic disturbance, mood disturbance, and anxiety; I11.0 Hypertensive heart disease with heart failure; I50.9 Heart failure, unspecified; I25.10 Atherosclerotic heart disease of native coronary artery without angina pectoris; E78.00 Pure hypercholesterolemia, unspecified; E11.9 Type 2 diabetes mellitus without complications; E03.9 Hypothyroidism, unspecified; Z87.440 Personal history of urinary (tract) infections
CPT/HCPCS: 99284; 74177; 80053; 81003; 81015; 82310; 83690; 84443; 85025; 87086; Q9967